=== PATIENT | male | born 1960 | race American Indian/Alaskan Native ===

== ENCOUNTER 2016-07-25 22:22 | Emergency (ER) | payer MEDICARE ==
--- NOTE | 2016-07-26 00:24 | Emergency Department Report ---
ED Abdominal Pain HPI - General Chief Complaint: Abdominal Pain Stated Complaint: ABD PAIN/VOMITING Time Seen by Provider: 07/26/16 00:18 Source: patient Mode of arrival: Wheelchair Limitations: Physical Limitation - History of Present Illness Initial Comments: This is a 55-year-old gentleman who complains of diffuse abdominal pains. He states they've been going on and off for the past couple of days. He denies any dysuria. He does have a history of diabetes. He takes insulin for this. He states his sugars are usually around 200. He denies any fevers. No diarrhea or vomiting. He does occasionally have nausea however. Quality: aching Consistency: intermittent Improves With: nothing Worsens With: eating Associated Symptoms: nausea. denies: chills - Related Data Home Medications Medication Instructions Recorded Confirmed Last Taken Ascorbic Acid 500 mg PO DAILY 01/07/14 01/07/14 Unknown Docusate Sodium [Colace CAP] 100 mg PO BID 01/07/14 01/07/14 Unknown Insulin Lispro [HumaLOG VIAL] 1 - 10 units SQ ACHS PRN 01/07/14 01/07/14 Unknown Multivits,Ca,Minerals/Iron/FA 1 tab PO DAILY 01/07/14 01/07/14 Unknown [Thera M Plus Tablet] Zinc Sulfate 220 mg PO DAILY 01/07/14 01/07/14 Unknown Previous Rx's Medication Instructions Recorded Last Taken Type ALPRAZolam [Xanax TAB] 0.25 mg PO BID PRN #7 tablet 01/16/14 Unknown Rx Atorvastatin (Nf) [Lipitor] 10 mg PO HS #30 tablet 01/16/14 Unknown Rx Clopidogrel Bisulfate [Plavix] 75 mg PO DAILY #30 tablet 01/16/14 Unknown Rx Famotidine [Pepcid] 20 mg PO BID #60 tablet 01/16/14 Unknown Rx Insulin Glargine,Hum.rec.anlog 17 units SQ HS 30 Days 01/16/14 Unknown Rx [Lantus] Metoprolol [Lopressor TAB] 12.5 mg PO Q12H #30 tablet 01/16/14 Unknown Rx Nicotine [Habitrol] 21 mg TD DAILY #7 patch 01/16/14 Unknown Rx PARoxetine [Paxil] 20 mg PO DAILY #30 tablet 01/16/14 Unknown Rx amLODIPine [Norvasc] 5 mg PO DAILY #30 tablet 01/16/14 Unknown Rx glyBURIDE [Diabeta] 5 mg PO BID #60 tablet 01/16/14 Unknown Rx oxyCODONE /ACETAMINOPHEN [Percocet 1 - 2 tab PO Q4H PRN #14 tablet 01/16/14 Unknown Rx 5/325 mg] Allergies Allergy/AdvReac Type Severity Reaction Status Date / Time No Known Allergies Allergy Verified 12/21/13 09:06 ED Review of Systems ROS: Stated complaint: ABD PAIN/VOMITING Other details as noted in HPI Comment: All other systems reviewed and negative Constitutional: denies: chills, fever Eyes: denies: eye pain, eye discharge, vision change ENT: denies: ear pain, throat pain Respiratory: denies: cough, shortness of breath, wheezing Cardiovascular: denies: chest pain, palpitations Endocrine: no symptoms reported Gastrointestinal: abdominal pain, nausea. denies: diarrhea Genitourinary: denies: urgency, dysuria Musculoskeletal: denies: back pain, joint swelling, arthralgia Skin: denies: rash, lesions Neurological: denies: headache, weakness, paresthesias Psychiatric: denies: anxiety, depression Hematological/Lymphatic: denies: easy bleeding, easy bruising ED Past Medical Hx - Past Medical History Hx Hypertension: Yes (amlodipine, metoprolol) Hx Heart Attack/AMI: No Hx Congestive Heart Failure: No Hx Diabetes: Yes Hx Asthma: No Hx COPD: No - Surgical History Past Surgical History?: Yes Additional Surgical History: bilateral amputations - Social History Smoking Status: Never Smoker Substance Use Type: None - Medications Home Medications: Home Medications Medication Instructions Recorded Confirmed Last Taken Type Ascorbic Acid 500 mg PO DAILY 01/07/14 01/07/14 Unknown History Docusate Sodium [Colace CAP] 100 mg PO BID 01/07/14 01/07/14 Unknown History Insulin Lispro [HumaLOG VIAL] 1 - 10 units SQ ACHS PRN 01/07/14 01/07/14 Unknown History Multivits,Ca,Minerals/Iron/FA 1 tab PO DAILY 01/07/14 01/07/14 Unknown History [Thera M Plus Tablet] Zinc Sulfate 220 mg PO DAILY 01/07/14 01/07/14 Unknown History ALPRAZolam [Xanax TAB] 0.25 mg PO BID PRN #7 tablet 01/16/14 Unknown Rx Atorvastatin (Nf) [Lipitor] 10 mg PO HS #30 tablet 01/16/14 Unknown Rx Clopidogrel Bisulfate [Plavix] 75 mg PO DAILY #30 tablet 01/16/14 Unknown Rx Famotidine [Pepcid] 20 mg PO BID #60 tablet 01/16/14 Unknown Rx Insulin Glargine,Hum.rec.anlog 17 units SQ HS 30 Days 01/16/14 Unknown Rx [Lantus] Metoprolol [Lopressor TAB] 12.5 mg PO Q12H #30 tablet 01/16/14 Unknown Rx Nicotine [Habitrol] 21 mg TD DAILY #7 patch 01/16/14 Unknown Rx PARoxetine [Paxil] 20 mg PO DAILY #30 tablet 01/16/14 Unknown Rx amLODIPine [Norvasc] 5 mg PO DAILY #30 tablet 01/16/14 Unknown Rx glyBURIDE [Diabeta] 5 mg PO BID #60 tablet 01/16/14 Unknown Rx oxyCODONE /ACETAMINOPHEN [Percocet 1 - 2 tab PO Q4H PRN #14 tablet 01/16/14 Unknown Rx 5/325 mg] ED Physical Exam - General Limitations: Physical Limitation General appearance: alert, in no apparent distress - Head Head exam: Present: atraumatic, normocephalic - Eye Eye exam: Present: normal appearance, EOMI. Absent: scleral icterus - ENT ENT exam: Present: normal exam, normal orophraynx, mucous membranes moist - Neck Neck exam: Present: normal inspection, full ROM. Absent: meningismus - Respiratory Respiratory exam: Present: normal lung sounds bilaterally. Absent: respiratory distress, wheezes, rales - Cardiovascular Cardiovascular Exam: Present: regular rate, normal rhythm. Absent: systolic murmur, diastolic murmur, rubs, gallop - GI/Abdominal GI/Abdominal exam: Present: soft, normal bowel sounds. Absent: distended, tenderness, guarding, organomegaly, pulsatile mass - Rectal Rectal exam: Present: deferred - Extremities Exam Extremities exam: Present: normal inspection, other (right BKA with superficial abrasion with secondary healing noted on the distal portion of the leg. No surrounding erythema noted no purulent drainage noted.). Absent: pedal edema - Back Exam Back exam: Present: normal inspection. Absent: tenderness, CVA tenderness (R), CVA tenderness (L) - Neurological Exam Neurological exam: Present: alert, oriented X3 - Psychiatric Psychiatric exam: Present: normal affect, normal mood - Skin Skin exam: Present: warm, dry, intact, normal color. Absent: rash ED Course Vital Signs 07/25/16 07/26/16 23:39 01:10 Temperature 98.9 F Pulse Rate 121 H Respiratory 16 14 Rate Blood Pressure 152/102 O2 Sat by Pulse 97 97 Oximetry - Reevaluation(s) Reevaluation #1: 07/26/16 00:19 ECG at 2352 with sinus tachycardia at 122 bpm with normal SD and QRS. Right axis is noted with some right atrial and ventricular enlargement. Doesn't appear to have a pulmonary pattern. Nonspecific ST-T wave changes are noted. Reevaluation #2: 07/26/16 05:16 I was very surprised to see the patient had no tenderness whatsoever to palpation on his abdominal examination. He does continue to endorse some mild abdominal pains. He appears quite comfortable in general. Cipro such as colonic ischemia come to mind is a possibility. I am more suspicious however given his hyperglycemia and history of vascular disease that the type of gastroparesis or more of a neurologic come opponent to his intra-abdominal discomforts. I do not suspect this is a surgical etiology at this time. I did focus on his sugars. He was given total of 2 L normal saline as well as several rounds of insulin regular to bring the sugars down. He is still in the 300s. Given a final dose of insulin here prior to her discharge I suspect will bring him down below 300. I did encourage the patient to continue to be aggressive at home with his sugars to try to get his sugars down below 200. He has his daughter with him as well. I did discuss this well his blood tests and my suspicion of etiology of his discomforts. Frankly he seems to have resolved as regards his pain over the last several hours. I feel he is safe for home and continue management through his primary doctor. ED Medical Decision Making - Lab Data Result diagrams: 07/26/16 00:03 07/26/16 00:03 Critical care attestation.: If time is entered above; I have spent that time in minutes in the direct care of this critically ill patient, excluding procedure time. ED Disposition Clinical Impression: Hyperglycemia, Gastroparesis due to DM Abdominal pain Qualifiers: Abdominal location: generalized Qualified Code(s): R10.84 - Generalized abdominal pain Disposition: DISCHARGED TO HOME OR SELFCARE Is pt being admited?: No Does the pt Need Aspirin: No Condition: Stable Additional Instructions: Take your medications as prescribed. Check her sugars regularly. Be aggressive with her sliding scale to keep her sugars in the appropriate range. Take small meals more frequently through the day. Referrals: ALFONSO VILLANUEVA MD [Primary Care Provider] - 3-5 Days Time of Disposition: 04:45
[2016-07-26] MEDS ORDERED: NACL 0.9% 1000 ML 1,000 ML IV ONE ×2 (00:32→03:56)
[2016-07-26 00:33] LABS: Basophils % (Auto) 0.5 % (0.0-1.8); Eosinophils % (Auto) 0.1 % (0.0-4.3); Hematocrit 42.2 % (35.5-45.6); Hemoglobin 14.1 gm/dl (11.8-15.2); Mean Corpuscular HGB Conc 33 % (32-34); Mean Corpuscular Hemoglobin 27 pg (28-32); Mean Corpuscular Volume 80 fl (84-94); Platelet Count 212 K/mm3 (140-440); Red Blood Count 5.24 M/mm3 (3.65-5.03); Red Cell Distribution Width 14.8 % (13.2-15.2); White Blood Count 18.1 K/mm3 (4.5-11.0)
[2016-07-26 00:39] LABS: Albumin 4.2 g/dL (3.9-5); Albumin/Globulin Ratio 1.4 %; BUN/Creatinine Ratio 32.27; Bilirubin,Total 0.5 mg/dL (0.1-1.2); Calcium 9.6 mg/dL (8.4-10.2); Chloride 85.6 mmol/L (98-107); Potassium 4.4 mmol/L (3.6-5.0); Total Protein 7.1 g/dL (6.3-8.2)
[2016-07-26 01:46] LABS: Bacteria,Urine 1+ /HPF (Negative); Bilirubin,Urine NEG (Negative); Blood,Urine NEG (Negative); Ketones,Urine 20 mg/dL (Negative); Leukocyte Esterase,Urine NEG (Negative); Nitrite,Urine NEG (Negative); Protein,Urine <15 mg/dL mg/dL (Negative); Urobilinogen,Urine < 2.0 mg/dL (<2.0)
[2016-07-26 05:18] VITALS: BP 152/98
== END 2016-07-26 05:30 | disposition home or self-care (01) ==
LOC: ED 22:22
DX: E11.65 Type 2 diabetes mellitus with hyperglycemia (principal); E11.43 Type 2 diabetes mellitus with diabetic autonomic (poly)neuropathy; K31.84 Gastroparesis; I10 Essential (primary) hypertension; Z79.4 Long term (current) use of insulin
CPT/HCPCS: 36415; 80048; 80053; 81001; 82962; 83690; 85025; 93005; 93010; 96360; 96361; 96372; 99283; J7030; J1815

== ENCOUNTER 2020-02-18 07:48 | Emergency (ER) | payer MEDICARE ==
[2020-02-18] MEDS ORDERED: ONDANSETRON 4 MG/2 ML INJ IV ONE (09:03)
[2020-02-18] MEDS ORDERED: MORPHINE 4 MG/1 ML INJ IV ONE (09:03)
[2020-02-18] MEDS ORDERED: SODIUM CHLORIDE 0.9% 1000 ML 1,000 ML IV ONE ×2 (09:03→10:00)
[2020-02-18] MEDS ORDERED: FAMOTIDINE 20 MG/2 ML INJ IV ONE (09:03)
[2020-02-18 09:23] LABS: Basophils # (Auto) 0.1 K/mm3 (0.0-0.1); Basophils % (Auto) 0.4 % (0.0-1.8); Eosinophils # (Auto) 0.1 K/mm3 (0.0-0.4); Eosinophils % (Auto) 0.5 % (0.0-4.3); Hematocrit 36.4 % (35.5-45.6); Hemoglobin 12.3 gm/dl (11.8-15.2); Lymphocytes # (Auto) 1.9 K/mm3 (1.2-5.4); Lymphocytes % (Auto) 11.4 % (13.4-35.0); Mean Corpuscular HGB Conc 34 % (32-34); Mean Corpuscular Volume 83 fl (84-94); Monocytes # (Auto) 1.2 K/mm3 (0.0-0.8); Monocytes % (Auto) 6.9 % (0.0-7.3); Platelet Count 278 K/mm3 (140-440); Red Blood Count 4.36 M/mm3 (3.65-5.03); Red Cell Distribution Width 13.9 % (13.2-15.2)
[2020-02-18 09:42] LABS: Albumin 3.3 g/dL (3.9-5); Calcium 8.8 mg/dL (8.4-10.2)
[2020-02-18] MEDS ORDERED: INSULIN REGULAR, HUMAN 100 UNIT/ML 3ML VIAL IV ONE (09:57)
[2020-02-18] MEDS ORDERED: SODIUM CHLORIDE 0.9% 1000 ML IV SOLN IV ONE (10:02)
--- NOTE | 2020-02-18 10:06 | Emergency Department Report ---
ED Abdominal Pain HPI - General Chief Complaint: Abdominal Pain Stated Complaint: NAUSEA Time Seen by Provider: 02/18/20 08:49 Source: patient Mode of arrival: Ambulatory Limitations: Physical Limitation - History of Present Illness Initial Comments: This is a 59-year-old male nontoxic, well nourished in appearance, no acute signs of distress presents to the ED with c/o of nausea and vomiting and abdominal pain several days. Patient describes vomiting as food content and yellow gastric acid. Patient describes abdominal pain as cramping and aching with level of 8/10 diffuse. Patient denies chest pain, short of breath, fever, hemoptysis, blood in stool, chills, headache, stiff neck, numbness or tingling. Patient denies any diarrhea or constipation. Denies any blood in stool. Patient denies any recent travels. Patient denies any drug allergies. Past medical history includes kidney insufficiency, bilateral BKA, and diabetes which he stated he is currently complying with medication. MD Complaint: abdominal pain -: days(s) Location: diffuse Radiation: none Migration to: no migration Severity scale (0 -10): 8 Quality: cramping, aching Consistency: constant Improves With: nothing Worsens With: nothing Associated Symptoms: nausea, vomiting. denies: diarrhea, fever, chills, constipation, dysuria, hematemesis, hematochezia, melena, hematuria, anorexia, syncope - Related Data Home Medications Medication Instructions Recorded Confirmed Last Taken Ascorbic Acid 500 mg PO DAILY 01/07/14 01/07/14 Unknown Docusate Sodium [Colace CAP] 100 mg PO BID 01/07/14 01/07/14 Unknown Insulin Lispro [HumaLOG VIAL] 1 - 10 units SQ ACHS PRN 01/07/14 01/07/14 Unknown Multivit,Calc,Mins/Iron/Folic 1 tab PO DAILY 01/07/14 01/07/14 Unknown [Thera M Plus Tablet] Zinc Sulfate 220 mg PO DAILY 01/07/14 01/07/14 Unknown Previous Rx's Medication Instructions Recorded Last Taken Type ALPRAZolam [Xanax TAB] 0.25 mg PO BID PRN #7 tablet 01/16/14 Unknown Rx Atorvastatin (Nf) [Lipitor] 10 mg PO HS #30 tablet 01/16/14 Unknown Rx Clopidogrel Bisulfate [Plavix] 75 mg PO DAILY #30 tablet 01/16/14 Unknown Rx Famotidine [Pepcid] 20 mg PO BID #60 tablet 01/16/14 Unknown Rx Insulin Glargine,Hum.rec.anlog 17 units SQ HS 30 Days ml 01/16/14 Unknown Rx [Lantus] Metoprolol [Lopressor TAB] 12.5 mg PO Q12H #30 tablet 01/16/14 Unknown Rx Nicotine [Habitrol] 21 mg TD DAILY #7 patch 01/16/14 Unknown Rx PARoxetine [Paxil] 20 mg PO DAILY #30 tablet 01/16/14 Unknown Rx amLODIPine 5 mg PO DAILY #30 tablet 01/16/14 Unknown Rx glyBURIDE [Diabeta] 5 mg PO BID #60 tablet 01/16/14 Unknown Rx oxyCODONE /ACETAMINOPHEN [Percocet 1 - 2 tab PO Q4H PRN #14 tablet 01/16/14 Unknown Rx 5/325 mg] Ondansetron [Zofran Odt] 4 mg PO Q8HR PRN #12 tab.rapdis 02/18/20 Unknown Rx Allergies Allergy/AdvReac Type Severity Reaction Status Date / Time No Known Allergies Allergy Verified 12/21/13 09:06 ED Review of Systems ROS: Stated complaint: NAUSEA Other details as noted in HPI Constitutional: denies: chills, fever Eyes: denies: eye pain, eye discharge, vision change ENT: denies: ear pain, throat pain Respiratory: denies: cough, shortness of breath, wheezing Cardiovascular: denies: chest pain, palpitations Endocrine: no symptoms reported Gastrointestinal: abdominal pain, nausea, vomiting. denies: diarrhea, constipation, hematemesis, melena, hematochezia Genitourinary: denies: urgency, dysuria Musculoskeletal: denies: back pain, joint swelling, arthralgia Skin: denies: rash, lesions Neurological: denies: headache, weakness, paresthesias Psychiatric: denies: anxiety, depression Hematological/Lymphatic: denies: easy bleeding, easy bruising ED Past Medical Hx - Past Medical History Hx Hypertension: Yes (amlodipine, metoprolol) Hx Heart Attack/AMI: No Hx Congestive Heart Failure: No Hx Diabetes: Yes Hx Asthma: No Hx COPD: No - Surgical History Additional Surgical History: bilateral amputations - Social History Smoking Status: Never Smoker - Medications Home Medications: Home Medications Medication Instructions Recorded Confirmed Last Taken Type Ascorbic Acid 500 mg PO DAILY 01/07/14 01/07/14 Unknown History Docusate Sodium [Colace CAP] 100 mg PO BID 01/07/14 01/07/14 Unknown History Insulin Lispro [HumaLOG VIAL] 1 - 10 units SQ ACHS PRN 01/07/14 01/07/14 Unknown History Multivit,Calc,Mins/Iron/Folic 1 tab PO DAILY 01/07/14 01/07/14 Unknown History [Thera M Plus Tablet] Zinc Sulfate 220 mg PO DAILY 01/07/14 01/07/14 Unknown History ALPRAZolam [Xanax TAB] 0.25 mg PO BID PRN #7 tablet 01/16/14 Unknown Rx Atorvastatin (Nf) [Lipitor] 10 mg PO HS #30 tablet 01/16/14 Unknown Rx Clopidogrel Bisulfate [Plavix] 75 mg PO DAILY #30 tablet 01/16/14 Unknown Rx Famotidine [Pepcid] 20 mg PO BID #60 tablet 01/16/14 Unknown Rx Insulin Glargine,Hum.rec.anlog 17 units SQ HS 30 Days ml 01/16/14 Unknown Rx [Lantus] Metoprolol [Lopressor TAB] 12.5 mg PO Q12H #30 tablet 01/16/14 Unknown Rx Nicotine [Habitrol] 21 mg TD DAILY #7 patch 01/16/14 Unknown Rx PARoxetine [Paxil] 20 mg PO DAILY #30 tablet 01/16/14 Unknown Rx amLODIPine 5 mg PO DAILY #30 tablet 01/16/14 Unknown Rx glyBURIDE [Diabeta] 5 mg PO BID #60 tablet 01/16/14 Unknown Rx oxyCODONE /ACETAMINOPHEN [Percocet 1 - 2 tab PO Q4H PRN #14 tablet 01/16/14 Unknown Rx 5/325 mg] Ondansetron [Zofran Odt] 4 mg PO Q8HR PRN #12 tab.rapdis 02/18/20 Unknown Rx ED Physical Exam - General Limitations: Physical Limitation General appearance: alert, in no apparent distress - Head Head exam: Present: atraumatic, normocephalic - Eye Eye exam: Present: normal appearance - Neck Neck exam: Present: normal inspection, full ROM. Absent: tenderness, meningismus, lymphadenopathy - Respiratory Respiratory exam: Present: normal lung sounds bilaterally. Absent: respiratory distress, wheezes, rales, rhonchi, stridor, chest wall tenderness, accessory muscle use, decreased breath sounds, prolonged expiratory - Cardiovascular Cardiovascular Exam: Present: normal rhythm, tachycardia, normal heart sounds. Absent: gallop - GI/Abdominal GI/Abdominal exam: Present: soft, tenderness (diffuse), normal bowel sounds. Absent: distended, guarding, rebound, rigid, diminished bowel sounds - Extremities Exam Extremities exam: Present: full ROM - Back Exam Back exam: Present: normal inspection, full ROM. Absent: tenderness, CVA tenderness (R), CVA tenderness (L), muscle spasm, paraspinal tenderness, vertebral tenderness, rash noted - Neurological Exam Neurological exam: Present: alert, oriented X3 - Psychiatric Psychiatric exam: Present: normal affect, normal mood - Skin Skin exam: Present: warm, dry, intact, normal color. Absent: rash ED Course Vital Signs 02/18/20 02/18/20 02/18/20 07:55 10:07 13:17 Temperature 97.7 F Pulse Rate 110 H 94 H Respiratory 18 20 18 Rate Blood Pressure 102/62 Blood Pressure 108/70 [Right] O2 Sat by Pulse 97 98 Oximetry - Reevaluation(s) Reevaluation #1: 02/18/20 10:06 Patient is speaking in full sentences with no signs of distress noted. - Consultations Consultation #1: 02/18/20 10:06 Patient has been consulted with Dr. Stephen about patient history, physical exam, and labs and agrees to the ED plan of care. Consultation #2: 02/18/20 13:57 Patient has been consulted with Dr. Stephen about patient history, physical exam, and labs/CT results and agrees for discharge follow-up instructions. ED Medical Decision Making - Lab Data Result diagrams: 02/18/20 09:09 02/18/20 09:09 Lab Results 02/18/20 02/18/20 02/18/20 Range/Units 09:09 09:09 09:09 WBC 16.7 H (4.5-11.0) K/mm3 RBC 4.36 (3.65-5.03) M/mm3 Hgb 12.3 (11.8-15.2) gm/dl Hct 36.4 (35.5-45.6) % MCV 83 L (84-94) fl MCH 28 (28-32) pg MCHC 34 (32-34) % RDW 13.9 (13.2-15.2) % Plt Count 278 (140-440) K/mm3 Lymph % (Auto) 11.4 L (13.4-35.0) % [place] % (Auto) 6.9 (0.0-7.3) % Eos % (Auto) 0.5 (0.0-4.3) % Baso % (Auto) 0.4 (0.0-1.8) % Lymph # (Auto) 1.9 (1.2-5.4) K/mm3 [place] # (Auto) 1.2 H (0.0-0.8) K/mm3 Eos # (Auto) 0.1 (0.0-0.4) K/mm3 Baso # (Auto) 0.1 (0.0-0.1) K/mm3 Seg Neutrophils % 80.8 H (40.0-70.0) % Seg Neutrophils # 13.5 H (1.8-7.7) K/mm3 VBG pH 7.384 (7.320-7.420) Sodium 137 (137-145) mmol/L Potassium 3.6 (3.6-5.0) mmol/L Chloride 97.8 L (98-107) mmol/L Carbon Dioxide 29 (22-30) mmol/L Anion Gap 14 mmol/L BUN 78 H (9-20) mg/dL Creatinine 2.5 H (0.8-1.3) mg/dL Estimated GFR 32 ml/min BUN/Creatinine Ratio 31 % Glucose 355 H (75-100) mg/dL POC Glucose (70-105) mg/dL Lactic Acid (0.7-2.0) mmol/L Calcium 8.8 (8.4-10.2) mg/dL Total Bilirubin 0.40 (0.1-1.2) mg/dL AST 10 (5-40) units/L ALT 9 (7-56) units/L Alkaline Phosphatase 110 (35-129) units/L Total Protein 6.2 L (6.3-8.2) g/dL Albumin 3.3 L (3.9-5) g/dL Albumin/Globulin Ratio 1.1 % Lipase 24 (13-60) units/L Urine Color (Yellow) Urine Turbidity (Clear) Urine pH (5.0-7.0) Ur Specific [place] (1.003-1.030) Urine Protein (Negative) mg/dL Urine Glucose (UA) (Negative) mg/dL Urine Ketones (Negative) mg/dL Urine Blood (Negative) Urine Nitrite (Negative) Urine Bilirubin (Negative) Urine Urobilinogen (<2.0) mg/dL Ur Leukocyte Esterase (Negative) Urine WBC (Auto) (0.0-6.0) /HPF Urine RBC (Auto) (0.0-6.0) /HPF U Epithel Cells (Auto) (0-13.0) /HPF Hyaline Casts /LPF 02/18/20 02/18/20 02/18/20 Range/Units 10:51 12:21 13:17 WBC (4.5-11.0) K/mm3 RBC (3.65-5.03) M/mm3 Hgb (11.8-15.2) gm/dl Hct (35.5-45.6) % MCV (84-94) fl MCH (28-32) pg MCHC (32-34) % RDW (13.2-15.2) % Plt Count (140-440) K/mm3 Lymph % (Auto) (13.4-35.0) % [place] % (Auto) (0.0-7.3) % Eos % (Auto) (0.0-4.3) % Baso % (Auto) (0.0-1.8) % Lymph # (Auto) (1.2-5.4) K/mm3 [place] # (Auto) (0.0-0.8) K/mm3 Eos # (Auto) (0.0-0.4) K/mm3 Baso # (Auto) (0.0-0.1) K/mm3 Seg Neutrophils % (40.0-70.0) % Seg Neutrophils # (1.8-7.7) K/mm3 VBG pH (7.320-7.420) Sodium (137-145) mmol/L Potassium (3.6-5.0) mmol/L Chloride (98-107) mmol/L Carbon Dioxide (22-30) mmol/L Anion Gap mmol/L BUN (9-20) mg/dL Creatinine (0.8-1.3) mg/dL Estimated GFR ml/min BUN/Creatinine Ratio % Glucose (75-100) mg/dL POC Glucose 336 H (70-105) mg/dL Lactic Acid 1.60 (0.7-2.0) mmol/L Calcium (8.4-10.2) mg/dL Total Bilirubin (0.1-1.2) mg/dL AST (5-40) units/L ALT (7-56) units/L Alkaline Phosphatase (35-129) units/L Total Protein (6.3-8.2) g/dL Albumin (3.9-5) g/dL Albumin/Globulin Ratio % Lipase (13-60) units/L Urine Color Yellow (Yellow) Urine Turbidity Clear (Clear) Urine pH 5.0 (5.0-7.0) Ur Specific [place] 1.016 (1.003-1.030) Urine Protein 100 mg/dl (Negative) mg/dL Urine Glucose (UA) >=500 (Negative) mg/dL Urine Ketones Neg (Negative) mg/dL Urine Blood Neg (Negative) Urine Nitrite Neg (Negative) Urine Bilirubin Neg (Negative) Urine Urobilinogen < 2.0 (<2.0) mg/dL Ur Leukocyte Esterase Neg (Negative) Urine WBC (Auto) 1.0 (0.0-6.0) /HPF Urine RBC (Auto) 3.0 (0.0-6.0) /HPF U Epithel Cells (Auto) < 1.0 (0-13.0) /HPF Hyaline Casts 1 /LPF - Radiology Data Referring Physician: ELI MILLER Patient Name: WILFRID DESIR Date of : 1960 Sex: Male Report Date: 2020-02-18 Report Status: Finalized [facility] [address] [place] [address] Cat Scan Report Signed Patient: WILFRID DESIR MR#: [id number] : 1960 Acct:[id number] Age/Sex: 59 / M ADM Date: 02/18/20 Loc: ED Attending Dr: Ordering Physician: ELI MILLER NP Date of Service: 02/18/20 Procedure(s): CT abdomen pelvis wo con Accession Number(s): [id number] cc: ELI MILLER NP CT abdomen pelvis wo con INDICATION: abd pain w/ n/v-PO CON ONLY. COMPARISON: 02/15/2020 CT abdomen and pelvis TECHNIQUE: Abdominal and pelvic CT exam performed. All CT scans at this location are performed using CT dose reduction for ALARA by means of automated exposure control. FINDINGS: CT ABDOMEN and PELVIS: Lung Bases: No significant abnormality. Liver: No significant abn ormality. Biliary: No significant abnormality. Spleen: No significant abnormality. Pancreas: No significant abnormality. Adrenals: No significant abnormality. Kidneys: No significant abnormality. Lymphatics: No lymphadenopathy. Vasculature: No significant abnormality. Bowel: No significant abnormality. Normal appendix. Pelvis: No significant abnormality. Osseous Structures: No aggressive osseous lesion. Additional Findings: None IMPRESSION: 1. No significant abnormality of the abdomen or pelvis. Signer Name: Benigno Machado MD Signed: 02/18/2020 11:43 AM Workstation Name: [id number] Transcribed By: CS Dictated By: Benigno Machado MD Electronically Authenticated By: Benigno Machado MD Signed Date/Time: 02/18/20 1143 DD/ 1141 TD/TT: Referring Physician: ELI MILLER Patient Name: WILFRID DESIR Date of : 1960 Sex: Male Report Date: 2020-02-18 Report Status: Finalized [address] [address] XRay Report Signed Patient: WILFRID DESIR MR#: [id number] : 1960 Acct:[id number] Age/Sex: 59 / M ADM Date: 02/18/20 Loc: ED Attending Dr: Ordering Physician: ELI MILLER NP Date of Service: 02/18/20 Procedure(s): XR chest 1V ap Accession Number(s): [id number] cc: ELI MILLER NP Fluoro Time In Minutes: CHEST 1 VIEW 02/18/2020 10:20 AM INDICATION / CLINICAL INFORMATION: sepsis. COMPARISON: 04/05/2019 FINDINGS: SUPPORT DEVICES: None. HEART / MEDIASTINUM: No significant abnormality. LUNGS / PLEURA: No significant pulmonary or pleural abnormality. No pneumothorax. ADDITIONAL FINDINGS: No significant additional findings. IMPRESSION: 1. No acute findings. Signer Name: Jean Wei MD Signed: 02/18/2020 10:28 AM Workstation Name: [id number] Transcribed By: TANESHA Dictated By: Jean Wei MD Electronically Authenticated By: Jean Wei MD Signed Date/Time: 02/18/201027 DD/ 27 TD/TT: - Medical Decision Making This is a 59-year-old male that presents with abdominal pain with n/v. Patient is stable and was examined by me. Negative signs of symptoms of appendicitis. Labs obtained. UA obtained. CT of abdomen obtained and dictated by the radiologist. Patient is notified of the report with no questions noted by the patient. Vital signs are stable prior to discharge. Patient received medical treatment in the ED which patient stated symptoms has resovled and subsided. Was instructed note to operate any machinery due to possible drowsiness and stated someone will drive the patient home. A by mouth challenge has been obt ained and patient tolerated well with no nausea vomiting. Patient was also instructed to Follow-up with a primary care doctor in 3-5 days or if symptoms worsen and continue return to emergency room as soon as possible. At time of discharge, the patient does not seem toxic or ill in appearance. No acute signs of distress noted. Patient agrees to discharge treatment plan of care. No further questions noted by the patient. Critical care attestation.: If time is entered above; I have spent that time in minutes in the direct care of this critically ill patient, excluding procedure time. ED Disposition Clinical Impression: Abdominal pain Qualifiers: Abdominal location: generalized Qualified Code(s): R10.84 - Generalized abdominal pain Nausea & vomiting Qualifiers: Vomiting type: unspecified Vomiting Intractability: non-intractable Qualified Code(s): R11.2 - Nausea with vomiting, unspecified Disposition: DC-01 TO HOME OR SELFCARE Is pt being admited?: No Does the pt Need Aspirin: No Condition: Stable Instructions: Nausea and Vomiting, Adult, Abdominal Pain, Adult, [id number] Additional Instructions: Follow-up with a primary care and health care consultant doctor in 3-5 days or if symptoms worsen and continue return to emergency room as soon as possible. Prescriptions: Ondansetron [Zofran Odt] 4 mg PO Q8HR PRN #12 tab.rapdis PRN Reason: Nausea Referrals: PRIMARY CARE, [Primary Care Provider] - 3-5 Days KALLIE HERNANDEZ MD [Staff Physician] - 3-5 Days [facility] [Provider Group] - 3-5 Days Time of Disposition: 13:58
--- NOTE | 2020-02-18 10:33 | XRay Report ---
CHEST 1 VIEW 02/18/2020 10:20 AM INDICATION / CLINICAL INFORMATION: sepsis. COMPARISON: 04/05/2019 FINDINGS: SUPPORT DEVICES: None. HEART / MEDIASTINUM: No significant abnormality. LUNGS / PLEURA: No significant pulmonary or pleural abnormality. No pneumothorax. ADDITIONAL FINDINGS: No significant additional findings. IMPRESSION: 1. No acute findings. Signer Name: Jean Wei MD Signed: 02/18/2020 10:28 AM Workstation Name: [id number]
--- NOTE | 2020-02-18 11:48 | Cat Scan Report ---
CT abdomen pelvis wo con INDICATION: abd pain w/ n/v-PO CON ONLY. COMPARISON: 02/15/2020 CT abdomen and pelvis TECHNIQUE: Abdominal and pelvic CT exam performed. All CT scans at this location are performed using CT dose reduction for ALARA by means of automated exposure control. FINDINGS: CT ABDOMEN and PELVIS: Lung Bases: No significant abnormality. Liver: No significant abnormality. Biliary: No significant abnormality. Spleen: No significant abnormality. Pancreas: No significant abnormality. Adrenals: No significant abnormality. Kidneys: No significant abnormality. Lymphatics: No lymphadenopathy. Vasculature: No significant abnormality. Bowel: No significant abnormality. Normal appendix. Pelvis: No significant abnormality. Osseous Structures: No aggressive osseous lesion. Additional Findings: None IMPRESSION: 1. No significant abnormality of the abdomen or pelvis. Signer Name: Benigno Machado MD Signed: 02/18/2020 11:43 AM Workstation Name: [id number]
[2020-02-18 13:34] LABS: Bilirubin,Urine NEG (Negative); Blood,Urine NEG (Negative); Color,Urine Yellow (Yellow); Hyaline Casts,Urine 1 /LPF; Urobilinogen,Urine < 2.0 mg/dL (<2.0)
[2020-02-18 15:13] VITALS: BP 110/71
== END 2020-02-18 15:12 | disposition home or self-care (01) ==
LOC: ED 07:48
DX: R10.84 Generalized abdominal pain (principal); R11.2 Nausea with vomiting, unspecified; I10 Essential (primary) hypertension; E11.9 Type 2 diabetes mellitus without complications; Z79.4 Long term (current) use of insulin; Z79.899 Other long term (current) drug therapy
CPT/HCPCS: 36415; 71045; 74176; 80053; 81001; 82140; 82805; 82962; 83690; 85025; 87040; 96361; 96374; 96375; 99285; J2270; J2405; J7030

== ENCOUNTER 2021-06-21 18:22 | Emergency (ER) | payer MEDICARE ==
--- NOTE | 2021-06-21 19:00 | Emergency Department Report ---
ED Psych HPI - General Chief Complaint: Psych Stated Complaint: psych Time Seen by Provider: 06/21/21 18:46 Source: patient, EMS Mode of arrival: Stretcher - History of Present Illness Initial Comments: Patient is 60 years old male with history of hypertension diabetes. Patient brought to the emergency room via EMS from home for mental health evaluation. Patient stated that he started to hearing voices that are not there and is bothering him and he want to be checked. Patient denied any visual hallucination. He also denied any suicidal homicidal ideation. Patient stated that this happened to him before but he went away. Patient denied any specific psychiatric diagnosis before. MD Complaint: altered mental status -: days(s) Associated Psychiatric Symptoms: auditory hallucinations Quality: intermittent Associated Symptoms: denies other symptoms. denies: confusion, headache, shortness of breath Treatments Prior to Arrival: none - Related Data Home Medications Medication Instructions Recorded Confirmed Last Taken Ascorbic Acid 500 mg PO DAILY 01/07/14 01/07/14 Unknown Docusate Sodium [Colace CAP] 100 mg PO BID 01/07/14 01/07/14 Unknown Insulin Lispro [HumaLOG VIAL] 1 - 10 units SQ ACHS PRN 01/07/14 01/07/14 Unknown Multivit,Calc,Mins/Iron/Folic 1 tab PO DAILY 01/07/14 01/07/14 Unknown [Thera M Plus Tablet] Zinc Sulfate 220 mg PO DAILY 01/07/14 01/07/14 Unknown Acetaminophen [Acetaminophen TAB] 500 mg PO Q8H PRN 01/06/21 01/06/21 Unknown Calcium Carbonate [Calcium 650 mg PO BID 01/06/21 01/06/21 Unknown Carbonate 650MG TAB] Chlorhexidine Mouthwash [Peridex] 15 ml MM TID 01/06/21 01/06/21 Unknown Ergocalciferol [Vitamin D2] 1 cap PO QWEEK 01/06/21 01/06/21 Unknown Gabapentin 1 cap PO QAM 01/06/21 01/06/21 Unknown Gabapentin 600 mg PO QHS 01/06/21 01/06/21 Unknown Hydralazine HCl 50 mg PO BID 01/06/21 01/06/21 Unknown Insulin Glargine,Hum.rec.anlog 16 unit SQ HS 01/06/21 01/06/21 Unknown [Basaglar Kwikpen U-100] Losartan [Cozaar] 100 mg PO QDAY 01/06/21 01/06/21 Unknown Ondansetron [Zofran ODT TAB] 8 mg PO Q68H PRN 01/06/21 01/06/21 Unknown glipiZIDE [Glucotrol] 10 mg PO QDAY 01/06/21 01/06/21 Unknown risperiDONE [RisperDAL] 0.5 mg PO HS 01/06/21 01/06/21 Unknown Previous Rx's Medication Instructions Recorded Last Taken Type ALPRAZolam [Xanax TAB] 0.25 mg PO BID PRN #7 tablet 01/16/14 Unknown Rx Atorvastatin (Nf) [Lipitor] 10 mg PO HS #30 tablet 01/16/14 Unknown Rx Clopidogrel Bisulfate [Plavix] 75 mg PO DAILY #30 tablet 01/16/14 Unknown Rx Famotidine [Pepcid] 20 mg PO BID #60 tablet 01/16/14 Unknown Rx Insulin Glargine,Hum.rec.anlog 17 units SQ HS 30 Days ml 01/16/14 Unknown Rx [Lantus VIAL] Metoprolol [Lopressor TAB] 12.5 mg PO Q12H #30 tablet 01/16/14 Unknown Rx Nicotine [Habitrol] 21 mg TD DAILY #7 patch 01/16/14 Unknown Rx PARoxetine [Paxil] 20 mg PO DAILY #30 tablet 01/16/14 Unknown Rx amLODIPine 5 mg PO DAILY #30 tablet 01/16/14 Unknown Rx glyBURIDE [Diabeta] 5 mg PO BID #60 tablet 01/16/14 Unknown Rx oxyCODONE /ACETAMINOPHEN [Percocet 1 - 2 tab PO Q4H PRN #14 tablet 01/16/14 Unknown Rx 5/325 mg] AtorvaSTATin [Lipitor] 40 mg PO QHS #30 tablet 08/18/17 03/20/18 Rx Pantoprazole [Protonix TAB] 40 mg PO BID #60 tablet 04/08/19 Unknown Rx Ondansetron [Zofran Odt] 4 mg PO Q8HR PRN #12 tab.rapdis 02/18/20 Unknown Rx Amlodipine Besylate [Norvasc] 5 mg PO DAILY #30 06/22/21 Unknown Rx Metoprolol Xl [Metoprolol 25 mg PO QDAY #30 tablet 06/22/21 Unknown Rx SUCCINATE ER TAB] cephALEXin [Keflex] 500 mg PO Q12HR #10 cap 06/22/21 Unknown Rx Allergies Allergy/AdvReac Type Severity Reaction Status Date / Time No Known Allergies Allergy Verified 06/14/21 07:08 ED Review of Systems ROS: Stated complaint: psych Other details as noted in HPI Comment: All other systems reviewed and negative Constitutional: denies: chills, fever Respiratory: denies: cough, shortness of breath, SOB with exertion, SOB at rest Cardiovascular: denies: chest pain Gastrointestinal: denies: abdominal pain, nausea, vomiting Musculoskeletal: denies: back pain Neurological: denies: headache, weakness ED Past Medical Hx - Past Medical History Hx Hypertension: Yes Hx Heart Attack/AMI: No Hx Congestive Heart Failure: No Hx Diabetes: Yes Hx Renal Disease: Yes (CKD) Hx Seizures: No Hx Asthma: No Hx COPD: Yes Additional medical history: high cholesterol - Surgical History Additional Surgical History: bilat bka - Social History Substance Use Type: None, Marijuana - Medications Home Medications: Home Medications Medication Instructions Recorded Confirmed Last Taken Type Ascorbic Acid 500 mg PO DAILY 01/07/14 01/07/14 Unknown History Docusate Sodium [Colace CAP] 100 mg PO BID 01/07/14 01/07/14 Unknown History Insulin Lispro [HumaLOG VIAL] 1 - 10 units SQ ACHS PRN 01/07/14 01/07/14 Unknown History Multivit,Calc,Mins/Iron/Folic 1 tab PO DAILY 01/07/14 01/07/14 Unknown History [Thera M Plus Tablet] Zinc Sulfate 220 mg PO DAILY 01/07/14 01/07/14 Unknown History ALPRAZolam [Xanax TAB] 0.25 mg PO BID PRN #7 tablet 01/16/14 Unknown Rx Atorvastatin (Nf) [Lipitor] 10 mg PO HS #30 tablet 01/16/14 Unknown Rx Clopidogrel Bisulfate [Plavix] 75 mg PO DAILY #30 tablet 01/16/14 Unknown Rx Famotidine [Pepcid] 20 mg PO BID #60 tablet 01/16/14 Unknown Rx Insulin Glargine,Hum.rec.anlog 17 units SQ HS 30 Days ml 01/16/14 Unknown Rx [Lantus VIAL] Metoprolol [Lopressor TAB] 12.5 mg PO Q12H #30 tablet 01/16/14 Unknown Rx Nicotine [Habitrol] 21 mg TD DAILY #7 patch 01/16/14 Unknown Rx PARoxetine [Paxil] 20 mg PO DAILY #30 tablet 01/16/14 Unknown Rx amLODIPine 5 mg PO DAILY #30 tablet 01/16/14 Unknown Rx glyBURIDE [Diabeta] 5 mg PO BID #60 tablet 01/16/14 Unknown Rx oxyCODONE /ACETAMINOPHEN [Percocet 1 - 2 tab PO Q4H PRN #14 tablet 01/16/14 Unknown Rx 5/325 mg] AtorvaSTATin [Lipitor] 40 mg PO QHS #30 tablet 08/18/17 01/06/21 03/20/18 Rx Pantoprazole [Protonix TAB] 40 mg PO BID #60 tablet 04/08/19 01/06/21 Unknown Rx Ondansetron [Zofran Odt] 4 mg PO Q8HR PRN #12 tab.rapdis 02/18/20 Unknown Rx Acetaminophen [Acetaminophen TAB] 500 mg PO Q8H PRN 01/06/21 01/06/21 Unknown History Calcium Carbonate [Calcium 650 mg PO BID 01/06/21 01/06/21 Unknown History Carbonate 650MG TAB] Chlorhexidine Mouthwash [Peridex] 15 ml MM TID 01/06/21 01/06/21 Unknown History Ergocalciferol [Vitamin D2] 1 cap PO QWEEK 01/06/21 01/06/21 Unknown History Gabapentin 1 cap PO QAM 01/06/21 01/06/21 Unknown History Gabapentin 600 mg PO QHS 01/06/21 01/06/21 Unknown History Hydralazine HCl 50 mg PO BID 01/06/21 01/06/21 Unknown History Insulin Glargine,Hum.rec.anlog 16 unit SQ HS 01/06/21 01/06/21 Unknown History [Basaglar Kwikpen U-100] Losartan [Cozaar] 100 mg PO QDAY 01/06/21 01/06/21 Unknown History Ondansetron [Zofran ODT TAB] 8 mg PO Q68H PRN 01/06/21 01/06/21 Unknown History glipiZIDE [Glucotrol] 10 mg PO QDAY 01/06/21 01/06/21 Unknown History risperiDONE [RisperDAL] 0.5 mg PO HS 01/06/21 01/06/21 Unknown History Amlodipine Besylate [Norvasc] 5 mg PO DAILY #30 06/22/21 Unknown Rx Metoprolol Xl [Metoprolol 25 mg PO QDAY #30 tablet 06/22/21 Unknown Rx SUCCINATE ER TAB] cephALEXin [Keflex] 500 mg PO Q12HR #10 cap 06/22/21 Unknown Rx ED Physical Exam - General Limitations: No Limitations General appearance: alert, in no apparent distress - Head Head exam: Present: atraumatic, normocephalic, normal inspection - Eye Eye exam: Present: normal appearance - ENT ENT exam: Present: normal exam, normal orophraynx, mucous membranes moist - Neck Neck exam: Present: normal inspection, full ROM. Absent: tenderness, meni ngismus - Respiratory Respiratory exam: Present: normal lung sounds bilaterally - Cardiovascular Cardiovascular Exam: Present: tachycardia, normal heart sounds - GI/Abdominal GI/Abdominal exam: Present: soft, normal bowel sounds. Absent: distended, tenderness, guarding, rebound, rigid, organomegaly, mass, bruit, pulsatile mass, hernia - Extremities Exam Extremities exam: Present: normal inspection, full ROM, normal capillary refill. Absent: tenderness - Back Exam Back exam: Present: normal inspection, full ROM. Absent: CVA tenderness (R), CVA tenderness (L) - Neurological Exam Neurological exam: Present: alert. Absent: motor sensory deficit - Psychiatric Psychiatric exam: Present: anxious. Absent: homicidal ideation, suicidal ideation - Skin Skin exam: Present: warm, intact, normal color ED Course Vital Signs 06/21/21 06/22/21 06/22/21 18:25 02:14 12:41 Temperature 97.1 F L 97.9 F Pulse Rate 120 H 111 H Respiratory 18 16 18 Rate Blood Pressure Blood Pressure 193/105 154/96 [Right] O2 Sat by Pulse 97 96 98 Oximetry 06/22/21 06/22/21 16:02 16:27 Temperature Pulse Rate 107 H 107 H Respiratory Rate Blood Pressure 189/97 Blood Pressure [Right] O2 Sat by Pulse 100 Oximetry ED Medical Decision Making - Lab Data Result diagrams: 06/21/21 19:39 06/21/21 19:39 - Radiology Data Radiology results: report reviewed - Medical Decision Making Patient is 60 years old male with history of hypertension diabetes. Patient b rought to the emergency room via EMS from home for mental health evaluation. Patient stated that he started to hearing voices that are not there and is bothering him and he want to be checked. Patient denied any visual hallucination. He also denied any suicidal homicidal ideation. Patient stated that this happened to him before but he went away. Patient denied any specific psychiatric diagnosis before. Patient became agitated and required Geodon for restraint. Labs reviewed and is unremarkable except for chronic kidney impairment. CT brain is negative for acute finding. Urinalysis and UDS is still pending. Patient is medically cleared to be evaluated by psychiatry. Critical care attestation.: If time is entered above; I have spent that time in minutes in the direct care of this critically ill patient, excluding procedure time. ED Disposition Clinical Impression: Auditory hallucination, Chronic renal insufficiency Disposition: HOME / SELF CARE / HOMELESS Is pt being admited?: No Condition: Stable Instructions: Food Basics for Chronic Kidney Disease, Chronic Kidney Disease, Adult, [id number], Preventing Chronic Kidney Disease Additional Instructions: Professional and Agency Contacts To help [facility] Crises(09/10) [place] Crisis Line: Suicide Prevention Line: Crisis Text Line: Text START to 102859 Emergency: 911 Outpatient COMMUNITY Behavioral Health Resources: [place]: [facility] [address] [place], [place] [address] [facility] - [address] [address] [facility] - [address] [place] [address] Sunday thru Sunday - 8am - 5pm [place]: [facility] Address: [address] [place] [address] [facility] Address: [address] [place] [address] Sunday thru Sunday- 7am-2pm [facility] Address: [address] [place] [address] Sunday thru Sunday: 8:30AM-5PM Prescriptions: cephALEXin [Keflex] 500 mg PO Q12HR #10 cap Metoprolol Xl [Metoprolol SUCCINATE ER TAB] 25 mg PO QDAY #30 tablet Amlodipine Besylate [Norvasc] 5 mg PO DAILY #30 Referrals: PRIMARY CARE, [Primary Care Provider] - 3-5 Days
[2021-06-21 19:59] LABS: Basophils # (Auto) 0.1 K/mm3 (0.0-0.1); Basophils % (Auto) 0.8 % (0.0-1.8); Eosinophils % (Auto) 0.2 % (0.0-4.3); Hematocrit 39.1 % (35.5-45.6); Hemoglobin 13.1 gm/dl (11.8-15.2); Lymphocytes # (Auto) 1.5 K/mm3 (1.2-5.4); Lymphocytes % (Auto) 14.5 % (13.4-35.0); Mean Corpuscular HGB Conc 34 % (32-34); Mean Corpuscular Volume 83 fl (84-94); Monocytes # (Auto) 0.6 K/mm3 (0.0-0.8); Monocytes % (Auto) 6.1 % (0.0-7.3); Platelet Count 266 K/mm3 (140-440); Red Blood Count 4.71 M/mm3 (3.65-5.03); Red Cell Distribution Width 15.2 % (13.2-15.2)
[2021-06-21] MEDS ORDERED: ZIPRASIDONE MESYLATE 20 MG VIAL IM ONE (20:07)
[2021-06-21 20:21] LABS: Calcium 9.1 mg/dL (8.4-10.2)
--- NOTE | 2021-06-21 21:34 | Cat Scan Report ---
NONENHANCED CT SCAN OF THE HEAD: INDICATION / CLINICAL INFORMATION: 60 years Male; AMS. TECHNIQUE: Routine CT head without contrast. All CT scans at this location are performed using CT dos e reduction for ALARA by means of automated exposure control. COMPARISON: CT scan of the head from November 2019 FINDINGS: BRAIN / INTRACRANIAL CONTENTS: No acute hemorrhage, mass effect, midline shift, hydrocephalus, or acu te, large territorial infarct. Chronic changes in the left centrum semiovale in the frontal region e xtending towards ocampo radiata and in the right centrum semiovale; periventricular confluent low-att enuation areas due to chronic small vessel disease; no acute focal lesion in the brainstem or in the cerebellar hemispheres CT findings unchanged CRANIOCERVICAL JUNCTION: No significant abnormality. ORBITS: No significant abnormality of visualized orbits. SINUSES / MASTOIDS: No significant abnormality of the visualized paranasal sinuses or mastoid air cande ls. ADDITIONAL FINDINGS: None. IMPRESSION: No acute focal parenchymal lesion Signer Name: Sam Cross MD Signed: 06/21/2021 9:29 PM Workstation Name: [email or web address]
[2021-06-21] MEDS ORDERED: cloNIDine 0.1 MG TAB PO ONE (21:36)
[2021-06-22 07:46] LABS: Bacteria,Urine 1+ /HPF (Negative); Bilirubin,Urine NEG (Negative); Blood,Urine NEG (Negative); Color,Urine Yellow (Yellow); Mucus,Urine FEW /HPF; Urobilinogen,Urine < 2.0 mg/dL (<2.0)
[2021-06-22 07:52] LABS: Amphetamine Screen,Urine Negative; Benzodiazepines Screen,Urine Negative; Cocaine Screen,Urine Negative; Methadone Screen,Urine Negative; Opiate Screen,Urine Negative
[2021-06-22 08:06] LABS: Cannabinoid Screen,Urine Positive
--- NOTE | 2021-06-22 11:29 | Consultation ---
History of Present Illness - Reason for Consult Consult date: 06/22/21 Reason for consult: mental health evaluation - History of Present Psychiatric Illness The patient is a 60 year old male with unknown psychiatric history. In my interview with the patient, he is calm, alert and oriented x2. The patient states he came to the ED because he was having hallucinations. The patient is a poor historian hence it was difficult to obtain information. He denies any current suicidal ideation. Collateral information from patient's sister Katheryn @ [phone]: She reports that the patient that the patient hallucinates " he does like this when his sugar go up." She states he does not have a psych diagnosis. PAST PSYCHIATRIC HISTORY Diagnoses: Denies Suicide attempts or Self-harm behavior:Denies Prior psychiatric hospitalizations: Denies Substance Abuse history:Denies Previous psychiatric medications tried:Denies Outpatient treatment: Denies SOCIAL HISTORY Marital Status: Single Living Arrangements: Lives with sister and brother Employment Status: Unemployed Access to guns/weapons: Denies Education: 12th grade History of abuse: Denies Legal History: Denies ROS Constitutional: Negative for weight loss EMT: Respiratory: Negative for cough or hemoptysis All other systems reviewed and are negative MENTAL STATUS EXAMINATION General Appearance: Dressed appropriately. Behavior: Calm and cooperative. Good eye contact. Mood: ok Affect: congruent to stated mood Speech: Normal Thought Process: Goal directed Thought Content:Denies Suicidal Ideation:Denies Homicidal Ideation: Denies Hallucinations: Denies Delusions: None elicited Insight and Judgment: Limited Memory/Cognition: Limited Assessment and Plan (1)Unspecified mood disorder Treatment Plan No medications prescribed Risks, benefits and alternatives of medications discussed with the patient, questions answered and consent obtained from patient. PSYCHOTHERAPY: Supportive psychotherapy provided MEDICAL: Per primary team DELIRIUM PRECAUTIONS: Please re-orient patient frequently, keep lights on during the day, and minimize benzodiazepines and opiates as these medications could worsen patient's confusion. TECHNICAL SUPPORT INTERNSHIP: Per primary DISPOSITION:Do not recommend acute inpatient psychiatric hospitalization at this time. Director Writing will provide patient with psychiatric out patient resources. Will sign off. Thank you for the consult. Please contact with any questions and/or concerns. Case discussed with Dr. Chua who agrees with current disposition Medications and Allergies Medications and Allergies Allergies Allergy/AdvReac Type Severity Reaction Status Date / Time No Known Allergies Allergy Verified 06/14/21 07:08 Home Medications Medication Instructions Recorded Confirmed Last Taken Type Ascorbic Acid 500 mg PO DAILY 01/07/14 01/07/14 Unknown History Docusate Sodium [Colace CAP] 100 mg PO BID 01/07/14 01/07/14 Unknown History Insulin Lispro [HumaLOG VIAL] 1 - 10 units SQ ACHS PRN 01/07/14 01/07/14 Unknown History Multivit,Calc,Mins/Iron/Folic 1 tab PO DAILY 01/07/14 01/07/14 Unknown History [Thera M Plus Tablet] Zinc Sulfate 220 mg PO DAILY 01/07/14 01/07/14 Unknown History ALPRAZolam [Xanax TAB] 0.25 mg PO BID PRN #7 tablet 01/16/14 Unknown Rx Atorvastatin (Nf) [Lipitor] 10 mg PO HS #30 tablet 01/16/14 Unknown Rx Clopidogrel Bisulfate [Plavix] 75 mg PO DAILY #30 tablet 01/16/14 Unknown Rx Famotidine [Pepcid] 20 mg PO BID #60 tablet 01/16/14 Unknown Rx Insulin Glargine,Hum.rec.anlog 17 units SQ HS 30 Days ml 01/16/14 Unknown Rx [Lantus VIAL] Metoprolol [Lopressor TAB] 12.5 mg PO Q12H #30 tablet 01/16/14 Unknown Rx Nicotine [Habitrol] 21 mg TD DAILY #7 patch 01/16/14 Unknown Rx PARoxetine [Paxil] 20 mg PO DAILY #30 tablet 01/16/14 Unknown Rx amLODIPine 5 mg PO DAILY #30 tablet 01/16/14 Unknown Rx glyBURIDE [Diabeta] 5 mg PO BID #60 tablet 01/16/14 Unknown Rx oxyCODONE /ACETAMINOPHEN [Percocet 1 - 2 tab PO Q4H PRN #14 tablet 01/16/14 Unknown Rx 5/325 mg] AtorvaSTATin [Lipitor] 40 mg PO QHS #30 tablet 08/18/17 01/06/21 03/20/18 Rx Pantoprazole [Protonix TAB] 40 mg PO BID #60 tablet 04/08/19 01/06/21 Unknown Rx Ondansetron [Zofran Odt] 4 mg PO Q8HR PRN #12 tab.rapdis 02/18/20 Unknown Rx Acetaminophen [Acetaminophen TAB] 500 mg PO Q8H PRN 01/06/21 01/06/21 Unknown History Calcium Carbonate [Calcium 650 mg PO BID 01/06/21 01/06/21 Unknown History Carbonate 650MG TAB] Chlorhexidine Mouthwash [Peridex] 15 ml MM TID 01/06/21 01/06/21 Unknown History Ergocalciferol [Vitamin D2] 1 cap PO QWEEK 01/06/21 01/06/21 Unknown History Gabapentin 1 cap PO QAM 01/06/21 01/06/21 Unknown History Gabapentin 600 mg PO QHS 01/06/21 01/06/21 Unknown History Hydralazine HCl 50 mg PO BID 01/06/21 01/06/21 Unknown History Insulin Glargine,Hum.rec.anlog 16 unit SQ HS 01/06/21 01/06/21 Unknown History [Basaglar Kwikpen U-100] Losartan [Cozaar] 100 mg PO QDAY 01/06/21 01/06/21 Unknown History Ondansetron [Zofran ODT TAB] 8 mg PO Q68H PRN 01/06/21 01/06/21 Unknown History glipiZIDE [Glucotrol] 10 mg PO QDAY 01/06/21 01/06/21 Unknown History risperiDONE [RisperDAL] 0.5 mg PO HS 01/06/21 01/06/21 Unknown History Mental Status Exam - Vital signs Last Vital Signs Temp 97.1 F L 06/21/21 18:25 Pulse 120 H 06/21/21 18:25 Resp 16 06/22/21 02:14 BP 193/105 06/21/21 18:25 Pulse Ox 96 06/22/21 02:14 Results Result Diagrams: 06/21/21 19:39 06/21/21 19:39 Abnormal lab results 06/21/21 06/21/21 06/21/21 Range/Units 19:39 19:39 19:39 MCV 83 L (84-94) fl Seg Neutrophils % 78.4 H (40.0-70.0) % Seg Neutrophils # 8.0 H (1.8-7.7) K/mm3 Sodium 136 L (137-145) mmol/L Carbon Dioxide 19 L (22-30) mmol/L BUN 22 H (9-20) mg/dL Creatinine 1.8 H (0.8-1.3) mg/dL Glucose 246 H (75-100) mg/dL Urine WBC (Auto) (0.0-6.0) /HPF Salicylates < 0.3 L (2.8-20.0) mg/dL Acetaminophen (10.0-30.0) ug/mL 06/21/21 06/22/21 Range/Units 19:39 Unknown MCV (84-94) fl Seg Neutrophils % (40.0-70.0) % Seg Neutrophils # (1.8-7.7) K/mm3 Sodium (137-145) mmol/L Carbon Dioxide (22-30) mmol/L BUN (9-20) mg/dL Creatinine (0.8-1.3) mg/dL Glucose (75-100) mg/dL Urine WBC (Auto) 8.0 H (0.0-6.0) /HPF Salicylates (2.8-20.0) mg/dL Acetaminophen 5.0 L (10.0-30.0) ug/mL All other labs normal.
--- NOTE | 2021-06-22 12:12 | Event Note ---
Date: 06/22/21 This patient is stable and was cleared by the psych provider for discharge. Psych provider recommended outpatient follow-up. Patient's vital signs within normal limits and wants to go home.
[2021-06-22] MEDS ORDERED: LORazepam 1 MG TAB PO ONE (14:43)
--- NOTE | 2021-06-22 14:59 | XRay Report ---
CHEST 2 VIEWS INDICATION / CLINICAL INFORMATION: tachycardia. COMPARISON: One view of the chest from 02/18/2020. FINDINGS: SUPPORT DEVICES: None. HEART / MEDIASTINUM: No significant abnormality. LUNGS / PLEURA: No significant pulmonary abnormality. No significant pleural effusion. No pneumothora x. ADDITIONAL FINDINGS: No significant additional findings. IMPRESSION: 1. No acute abnormality of the chest. Signer Name: Julito Thomas MD Signed: 06/22/2021 2:54 PM Workstation Name: [email or web address]
[2021-06-22] MEDS ORDERED: LIDOCAINE-MPF (1%) 10 MG/1 ML VIAL 5 ML INFILTRATI ONE (16:02)
[2021-06-22] MEDS ORDERED: METOPROLOL TARTRATE 50 MG TAB PO ONE (16:09)
[2021-06-22] MEDS ORDERED: amLODIPine 5 MG TAB PO ONE (16:10)
[2021-06-22 16:31] VITALS: BP 189/97
--- NOTE | 2021-06-23 10:37 | Electrocardiograph Report ---
[facility] Test Date: 2021-06-22 Test Time: 14:11:40 Pat Name: WILFRID DESIR Department: Room: Gender: M Quality Coordinator: GP : 1960 Requested By: JULIA AUGUSTINE Order Number: [id number] Reading MD: Wes Leung Measurements Intervals [place] Rate: 115 P: 89 NH: 140 QRS: -103 QRSD: 139 T: 58 QT: 367 QTc: 507 Interpretive Statements Sinus tachycardia Biatrial enlargement RBBB and LAFB ST elevation secondary to IVCD ST elevation, consider anterolateral injury Compared to ECG 01/05/2021 14:59:51 No significant change is noted. Electronically Signed On 06-23-2021 10:37:23 EDT by Wes Leung
== END 2021-06-22 17:53 | disposition home or self-care (01) ==
LOC: EEVIPCON 18:22 → ED 18:22
DX: R44.1 Visual hallucinations (principal); N18.9 Chronic kidney disease, unspecified; I12.9 Hypertensive chronic kidney disease with stage 1 through stage 4 chronic kidney disease, or unspecified chronic kidney disease; E11.22 Type 2 diabetes mellitus with diabetic chronic kidney disease; J44.9 Chronic obstructive pulmonary disease, unspecified; Z79.899 Other long term (current) drug therapy; R41.82 Altered mental status, unspecified
CPT/HCPCS: 36415; 70450; 71046; 80048; 80307; 81001; 84484; 85025; 93005; 96372; 99285; J0696; J3486; J3490; 80320; G0480

== ENCOUNTER 2021-09-01 17:52 | Observation (INO) | payer MEDICARE, OTHER ==
--- NOTE | 2021-09-01 21:43 | Emergency Department Report ---
ED General Adult HPI - General Chief complaint: Hypoglycemia Stated complaint: HYPOGLYCEMIA Time Seen by Provider: 09/01/21 21:30 Source: patient, EMS Mode of arrival: Stretcher Limitations: No Limitations, Physical Limitation - History of Present Illness Initial comments: Patient is 60 years old male with history of diabetes, hypertension, COPD and bilateral below-knee amputation. Patient brought to the emergency room for evaluation of hypoglycemia. Patient received dextrose 50% by EMS. Patient blood sugar in the ER is 270. Patient is alert, oriented x3 in no acute distress. Patient denied any symptoms specifically patient denied any chest p ain, shortness of breath, nausea or vomiting and abdominal pain also. No fever or chills. Patient is taking Lantus. - Related Data Home Medications Medication Instructions Recorded Confirmed Last Taken Ascorbic Acid 500 mg PO DAILY 01/07/14 01/07/14 Unknown Zinc Sulfate 220 mg PO DAILY 01/07/14 01/07/14 Unknown Calcium Carbonate [Calcium 650 mg PO BID 01/06/21 01/06/21 Unknown Carbonate 650MG TAB] Ergocalciferol [Vitamin D2] 1 cap PO QWEEK 01/06/21 01/06/21 Unknown Insulin Glargine,Hum.rec.anlog 16 unit SQ HS 01/06/21 01/06/21 Unknown [Basaglar Kwikpen U-100] Losartan [Cozaar] 100 mg PO QDAY 01/06/21 01/06/21 Unknown risperiDONE [RisperDAL] 0.5 mg PO HS 01/06/21 01/06/21 Unknown Previous Rx's Medication Instructions Recorded Last Taken Type Clopidogrel Bisulfate [Plavix] 75 mg PO DAILY #30 tablet 01/16/14 Unknown Rx PARoxetine [Paxil] 20 mg PO DAILY #30 tablet 01/16/14 Unknown Rx ALPRAZolam [Xanax TAB] 0.25 mg PO BID PRN #7 tablet 08/08/21 Unknown Rx AtorvaSTATin [Lipitor] 40 mg PO QHS #30 tablet 08/08/21 Unknown Rx Chlorhexidine Mouthwash [Peridex] 15 ml MM TID #1 bottle 08/08/21 Unknown Rx Docusate Sodium [Colace CAP] 100 mg PO BID #20 cap 08/08/21 Unknown Rx Gabapentin 600 mg PO QHS #30 cap 08/08/21 Unknown Rx Hydralazine HCl 50 mg PO BID #60 08/08/21 Unknown Rx Metoprolol [Lopressor TAB] 12.5 mg PO Q12H #30 tablet 08/08/21 Unknown Rx Pantoprazole [Protonix TAB] 40 mg PO BID #30 tablet 08/08/21 Unknown Rx amLODIPine 5 mg PO DAILY #30 tablet 08/08/21 Unknown Rx bisacodyL [Dulcolax] 10 mg PO DAILY PRN #14 tab 08/08/21 Unknown Rx cefUROXime [Ceftin] 2 tab PO Q12H 3 Days #12 08/08/21 Unknown Rx Allergies Allergy/AdvReac Type Severity Reaction Status Date / Time No Known Allergies Allergy Verified 06/14/21 07:08 ED Review of Systems ROS: Stated complaint: HYPOGLYCEMIA Other details as noted in HPI Comment: All other systems reviewed and negative Constitutional: denies: chills, fever Respiratory: denies: cough, shortness of breath, SOB with exertion, SOB at rest Cardiovascular: denies: chest pain, palpitations Gastrointestinal: denies: abdominal pain, nausea, vomiting Musculoskeletal: denies: back pain ED Past Medical Hx - Past Medical History Hx Hypertension: Yes Hx Heart Attack/AMI: No Hx Congestive Heart Failure: No Hx Diabetes: Yes Hx Renal Disease: Yes (CKD) Hx Seizures: No Hx Asthma: No Hx COPD: Yes Additional medical history: high cholesterol - Surgical History Additional Surgical History: bilat bka - Social History Smoking Status: Never Smoker - Medications Home Medications: Home Medications Medication Instructions Recorded Confirmed Last Taken Type Ascorbic Acid 500 mg PO DAILY 01/07/14 01/07/14 Unknown History Zinc Sulfate 220 mg PO DAILY 01/07/14 01/07/14 Unknown History Clopidogrel Bisulfate [Plavix] 75 mg PO DAILY #30 tablet 01/16/14 Unknown Rx PARoxetine [Paxil] 20 mg PO DAILY #30 tablet 01/16/14 Unknown Rx Calcium Carbonate [Calcium 650 mg PO BID 01/06/21 01/06/21 Unknown History Carbonate 650MG TAB] Ergocalciferol [Vitamin D2] 1 cap PO QWEEK 01/06/21 01/06/21 Unknown History Insulin Glargine,Hum.rec.anlog 16 unit SQ HS 01/06/21 01/06/21 Unknown History [Basaglar [place] U-100] Losartan [Cozaar] 100 mg PO QDAY 01/06/21 01/06/21 Unknown History risperiDONE [RisperDAL] 0.5 mg PO HS 01/06/21 01/06/21 Unknown History ALPRAZolam [Xanax TAB] 0.25 mg PO BID PRN #7 tablet 08/08/21 Unknown Rx AtorvaSTATin [Lipitor] 40 mg PO QHS #30 tablet 08/08/21 Unknown Rx Chlorhexidine Mouthwash [Peridex] 15 ml MM TID #1 bottle 08/08/21 Unknown Rx Docusate Sodium [Colace CAP] 100 mg PO BID #20 cap 08/08/21 Unknown Rx Gabapentin 600 mg PO QHS #30 cap 08/08/21 Unknown Rx Hydralazine HCl 50 mg PO BID #60 08/08/21 Unknown Rx Metoprolol [Lopressor TAB] 12.5 mg PO Q12H #30 tablet 08/08/21 Unknown Rx Pantoprazole [Protonix TAB] 40 mg PO BID #30 tablet 08/08/21 Unknown Rx amLODIPine 5 mg PO DAILY #30 tablet 08/08/21 Unknown Rx bisacodyL [Dulcolax] 10 mg PO DAILY PRN #14 tab 08/08/21 Unknown Rx cefUROXime [Ceftin] 2 tab PO Q12H 3 Days #12 08/08/21 Unknown Rx ED Physical Exam - General Limitations: No Limitations, Physical Limitation General appearance: alert, in no apparent distress - Head Head exam: Present: atraumatic, normocephalic, normal inspection - Eye Eye exam: Present: normal appearance - ENT ENT exam: Present: normal exam, normal orophraynx, mucous membranes moist - Neck Neck exam: Present: normal inspection, full ROM. Absent: tenderness, meningismus - Respiratory Respiratory exam: Present: normal lung sounds bilaterally - Cardiovascular Cardiovascular Exam: Present: regular rate, normal rhythm, normal heart sounds - GI/Abdominal GI/Abdominal exam: Present: soft, normal bowel sounds. Absent: distended, tenderness, guarding, rebound, rigid, hypoactive bowel sounds, pulsatile mass - Neurological Exam Neurological exam: Present: alert, oriented X3, CN II-XII intact - Psychiatric Psychiatric exam: Present: normal mood - Skin Skin exam: Present: warm ED Course Vital Signs 09/01/21 09/01/21 19:44 23:30 Temperature 98.1 F Pulse Rate 90 Respiratory 18 19 Rate Blood Pressure 112/80 [Left] O2 Sat by Pulse 100 98 Oximetry ED Medical Decision Making - Lab Data Result diagrams: 09/01/21 22:39 09/01/21 22:39 - EKG Data -: EKG Interpreted by Me EKG shows normal: sinus rhythm Rate: normal - EKG Data Interpretation: no acute changes - Medical Decision Making Patient is 60 years old male with history of diabetes, hypertension, COPD and bilateral below-knee amputation. Patient brought to the emergency room for evaluation of hypoglycemia. Patient received dextrose 50% by EMS. Patient blood sugar in the ER is 270. Patient is alert, oriented x3 in no acute distress. Patient denied any symptoms specifically patient denied any chest pain, shortness of breath, nausea or vomiting and abdominal pain also. No fever or chills. Patient is taking Lantus. Patient blood glucose dropped again to 31. Patient received dextrose 50%. I started patient on dextrose 10% at 125 mL/h. Labs reviewed and is unremarkable except for blood glucose of 50. I discussed the patient with Dr. Go, he agreed to admit the patient to medical service for further management. Critical Care Time: Yes Critical care time in (mins) excluding proc time.: 35 Critical care attestation.: If time is entered above; I have spent that time in minutes in the direct care of this critically ill patient, excluding procedure time. ED Disposition Clinical Impression: Acute metabolic encephalopathy due to hypoglycemia Disposition: ADMITTED INPATIENT Is pt being admited?: Yes Condition: Stable
[2021-09-01 23:06] LABS: Basophils % (Auto) 0.3 % (0.0-1.8); Eosinophils # (Auto) 0.1 K/mm3 (0.0-0.4); Eosinophils % (Auto) 1.1 % (0.0-4.3); Hematocrit 32.6 % (35.5-45.6); Hemoglobin 11.2 gm/dl (11.8-15.2); Lymphocytes # (Auto) 1.5 K/mm3 (1.2-5.4); Lymphocytes % (Auto) 17.7 % (13.4-35.0); Mean Corpuscular HGB Conc 34 % (32-34); Mean Corpuscular Volume 86 fl (84-94); Monocytes # (Auto) 0.6 K/mm3 (0.0-0.8); Platelet Count 319 K/mm3 (140-440); Red Blood Count 3.81 M/mm3 (3.65-5.03); Red Cell Distribution Width 15.3 % (13.2-15.2)
[2021-09-01] MEDS ORDERED: DEXTROSE 50% IN WATER (25GM) 50 ML SYRINGE IV ONE ×2 (23:09→23:12)
[2021-09-01 23:22] LABS: BUN/Creatinine Ratio 11; Blood Urea Nitrogen 16 mg/dL (9-20); Hemolysis Index 5
[2021-09-01] MEDS ORDERED: DEXTROSE 10% IN WATER 1,000 ML IV SCH (23:45)
[2021-09-02] MEDS ORDERED: ACETAMINOPHEN 325 MG TAB PO PRN (01:07)
[2021-09-02] MEDS ORDERED: DEXTROSE 50% IN WATER (25GM) 50 ML SYRINGE IV PRN (01:07)
[2021-09-02] MEDS ORDERED: MORPHINE 4 MG/1 ML INJ IV PRN (01:07)
[2021-09-02] MEDS ORDERED: ALBUTEROL 2.5 MG/3 ML NEBU IH PRN (01:07)
[2021-09-02] MEDS ORDERED: MORPHINE 2 MG/1 ML INJ IV PRN (01:07)
[2021-09-02] MEDS ORDERED: ONDANSETRON 4 MG/2 ML INJ IV PRN (01:07)
--- NOTE | 2021-09-02 01:14 | History and Physical Report ---
History of Present Illness Date of examination: 09/02/21 Date of admission: 09/02/21 Chief complaint: Hypoglycemia Altered mental status History of present illness: 60 years old male with history of diabetes, hypertension, COPD and bilateral below-knee amputation was brought to the emergency room for evaluation of hypoglycemia. Patient received dextrose 50% by EMS. Patient blood sugar in the ER is 270. Patient is alert, oriented x3 in no acute distress. Patient denied any symptoms specifically patient denied any chest pain, shortness of breath, nausea or vomiting and abdominal pain also. No fever or chills. Patient is taking Lantus. Patient blood glucose dropped again to 31. Patient received dextrose 50%. we started patient on dextrose 10% at 125 mL/h. Labs reviewed and is unremarkable except for blood glucose of 50. Past History Past Medical History: COPD, diabetes, hypertension, hyperlipidemia, renal failure Past Surgical History: Other (Bilateral below-knee amputation) Social history: no significant social history Family history: hypertension Medications and Allergies Allergies Allergy/AdvReac Type Severity Reaction Status Date / Time No Known Allergies Allergy Verified 06/14/21 07:08 Home Medications Medication Instructions Recorded Confirmed Last Taken Type Ascorbic Acid 500 mg PO DAILY 01/07/14 01/07/14 Unknown History Zinc Sulfate 220 mg PO DAILY 01/07/14 01/07/14 Unknown History Clopidogrel Bisulfate [Plavix] 75 mg PO DAILY #30 tablet 01/16/14 Unknown Rx PARoxetine [Paxil] 20 mg PO DAILY #30 tablet 01/16/14 Unknown Rx Calcium Carbonate [Calcium 650 mg PO BID 01/06/21 01/06/21 Unknown History Carbonate 650MG TAB] Ergocalciferol [Vitamin D2] 1 cap PO QWEEK 01/06/21 01/06/21 Unknown History Insulin Glargine,Hum.rec.anlog 16 unit SQ HS 01/06/21 01/06/21 Unknown History [Basaglar Kwikpen U-100] Losartan [Cozaar] 100 mg PO QDAY 01/06/21 01/06/21 Unknown History risperiDONE [RisperDAL] 0.5 mg PO HS 01/06/21 01/06/21 Unknown History ALPRAZolam [Xanax TAB] 0.25 mg PO BID PRN #7 tablet 08/08/21 Unknown Rx AtorvaSTATin [Lipitor] 40 mg PO QHS #30 tablet 08/08/21 Unknown Rx Chlorhexidine Mouthwash [Peridex] 15 ml MM TID #1 bottle 08/08/21 Unknown Rx Docusate Sodium [Colace CAP] 100 mg PO BID #20 cap 08/08/21 Unknown Rx Gabapentin 600 mg PO QHS #30 cap 08/08/21 Unknown Rx Hydralazine HCl 50 mg PO BID #60 08/08/21 Unknown Rx Metoprolol [Lopressor TAB] 12.5 mg PO Q12H #30 tablet 08/08/21 Unknown Rx Pantoprazole [Protonix TAB] 40 mg PO BID #30 tablet 08/08/21 Unknown Rx amLODIPine 5 mg PO DAILY #30 tablet 08/08/21 Unknown Rx bisacodyL [Dulcolax] 10 mg PO DAILY PRN #14 tab 08/08/21 Unknown Rx cefUROXime [Ceftin] 2 tab PO Q12H 3 Days #12 08/08/21 Unknown Rx Active Meds: Active Medications Dextrose (D10w) 1,000 mls @ 125 mls/hr IV DIRECT VISHAL Last Admin: 09/01/21 23:24 Dose: 125 mls/hr Review of Systems All systems: negative Constitutional: fatigue, malaise, other (Altered mental status) Exam - Constitutional Vitals: Temp Pulse Resp BP Pulse Ox 98.1 F 90 19 112/80 98 09/01/21 19:44 09/01/21 19:44 09/01/21 23:30 09/01/21 19:44 09/01/21 23:30 General appearance: Present: no acute distress, well-nourished - EENT Eyes: Present: PERRL ENT: hearing intact, clear oral mucosa - Neck Neck: Present: supple, normal ROM - Respiratory Respiratory effort: normal Respiratory: bilateral: CTA - Cardiovascular Heart Sounds: Present: S1 & S2. Absent: rub, click - Extremities Extremities: pulses symmetrical, No edema Peripheral Pulses: within normal limits - Abdominal General gastrointestinal: Present: soft, non-tender, non-distended, normal bowel sounds Male genitourinary: Present: normal - Integumentary Integumentary: Present: clear, warm, dry - Musculoskeletal Musculoskeletal: strength equal bilaterally, other (Bilateral below-knee amputation) - Psychiatric Psychiatric: appropriate mood/affect, intact judgment & insight - Neurologic Neurologic: CNII-XII intact, moves all extremities HEART Score - HEART Score Troponin: Troponin T < 0.010 ng/mL (0.00-0.029) 09/01/21 22:39 Results - Labs CBC & Chem 7: 09/01/21 22:39 09/01/21 22:39 Labs: Laboratory Last Values WBC 8.7 K/mm3 (4.5-11.0) 09/01/21 22:39 RBC 3.81 M/mm3 (3.65-5.03) 09/01/21 22:39 Hgb 11.2 gm/dl (11.8-15.2) L 09/01/21 22:39 Hct 32.6 % (35.5-45.6) L 09/01/21:39 MCV 86 fl (84-94) 09/01/21 22:39 MCH 29 pg (28-32) 09/01/21:39 MCHC 34 % (32-34) 09/01/21:39 RDW 15.3 % (13.2-15.2) H 09/01/21:39 Plt Count 319 K/mm3 (140-440) 09/01/21 22:39 Lymph % (Auto) 17.7 % (13.4-35.0) 09/01/21 22:39 [place] % (Auto) 7.0 % (0.0-7.3) 09/01/21 22:39 Eos % (Auto) 1.1 % (0.0-4.3) 09/01/21: Baso % (Auto) 0.3 % (0.0-1.8) 09/01/21:39 Lymph # (Auto) 1.5 K/mm3 (1.2-5.4) 09/01/21 22:39 [place] # (Auto) 0.6 K/mm3 (0.0-0.8) 09/01/21 22:39 Eos # (Auto) 0.1 K/mm3 (0.0-0.4) 09/01/21 22:39 Baso # (Auto) 0.0 K/mm3 (0.0-0.1) 09/01/21 22:39 Seg Neutrophils % 73.9 % (40.0-70.0) H 09/01/21 22:39 Seg Neutrophils # 6.4 K/mm3 (1.8-7.7) 09/01/21 22:39 Sodium 140 mmol/L (137-145) 09/01/21 22:39 Potassium 3.7 mmol/L (3.6-5.0) 09/01/21 22:39 Chloride 103.4 mmol/L (98-107) 09/01/21 22:39 Carbon Dioxide 23 mmol/L (22-30) 09/01/21 22:39 Anion Gap 17 mmol/L 09/01/21 22:39 BUN 16 mg/dL (9-20) 09/01/21 22:39 Creatinine 1.4 mg/dL (0.8-1.3) H 09/01/21 22:39 Estimated GFR > 60 ml/min 09/01/21 22:39 BUN/Creatinine Ratio 11 % 09/01/21 22:39 Glucose 50 mg/dL (75-100) L 09/01/21 22:39 POC Glucose 318 mg/dL (70-105) H 09/01/21 23:58 Calcium 9.0 mg/dL (8.4-10.2) 09/01/21 22:39 Troponin T < 0.010 ng/mL (0.00-0.029) 09/01/21 22:39 Assessment and Plan VTE prophylaxis?: Mechanical Plan of care discussed with patient/family: Yes - Patient Problems (1) Acute metabolic encephalopathy Status: Acute Plan to address problem: Admit the patient to the medical telemetry. Metabolic encephalopathy secondary to hypoglycemia. We will put the patient on D10. We will monitor the glucose closely. We will consult diabetic education. Recheck CBC CMP in the morning (2) Hypoglycemia Status: Acute Plan to address problem: Patient is on dextrose 10% at 125 cc/h. We will monitor the glucose closely. We will consult diabetic education. Recheck CBC and BMP in the morning (3) Hyperlipidemia Status: Chronic Plan to address problem: Is stable. We will continue the home medication. (4) Hypertension Status: Chronic Plan to address problem: Hydralazine 10 mg IV every 6 hours as needed. We continue the home medication (5) IDDM (insulin dependent diabetes mellitus) Status: Chronic Plan to address problem: Accu-Chek every 6 hours with Humalog low-dose coverage. Diabetic education. Recheck CMP in the morning (6) S/P BKA (below knee amputation) bilateral Status: Chronic Plan to address problem: Stable. Continue current medication. (7) DVT prophylaxis Status: Acute Plan to address problem: Heparin 5000 units subcu every 12 hours for DVT prophylaxis. Pepcid 20 mg IV every 12 hours for GI prophylaxis. Patient is a full code
[2021-09-02] MEDS ORDERED: hydrALAZINE 20 MG/1 ML INJ IV PRN (01:16)
[2021-09-02] MEDS: IPRATROPIUM/ALBUTEROL SULFATE 3 ML AMPUL.NEB IH SCH ×4 (03:01→20:30)
[2021-09-02] MEDS: HEPARIN 5,000 UNIT/1 ML VIAL SUB-Q SCH ×2 (09:11→22:47)
[2021-09-02] MEDS: FAMOTIDINE 20 MG/2 ML INJ IV SCH ×2 (09:11→22:38)
--- NOTE | 2021-09-02 09:58 | Progress Note ---
Assessment and Plan Assessment and plan: (1) Acute metabolic encephalopathy Status: Acute Plan to address problem: Admit the patient to the medical telemetry. Metabolic encephalopathy secondary to hypoglycemia. We will put the patient on D10. We will monitor the glucose closely. We will consult diabetic education. Recheck CBC CMP in the morning (2) Hypoglycemia Status: Acute Plan to address problem: Patient is on dextrose 10% at 125 cc/h. We will monitor the glucose closely. We will consult diabetic education. Recheck CBC and BMP in the morning (3) Hyperlipidemia Status: Chronic Plan to address problem: Is stable. We will continue the home medication. (4) Hypertension Status: Chronic Plan to address problem: Hydralazine 10 mg IV every 6 hours as needed. We continue the home medication (5) IDDM (insulin dependent diabetes mellitus) Status: Chronic Plan to address problem: Accu-Chek every 6 hours with Humalog low-dose coverage. Diabetic education. Recheck CMP in the morning (6) S/P BKA (below knee amputation) bilateral Status: Chronic Plan to address problem: Stable. Continue current medication. (7) DVT prophylaxis Status: Acute Plan to address problem: Heparin 5000 units subcu every 12 hours for DVT prophylaxis. Pepcid 20 mg IV every 12 hours for GI prophylaxis. Patient is a full code Closely monitor the patient and adjust management as needed Plan of care reviewed with the patient and his nurse History Interval history: I have seen and examined the patient at the bedside Patient's chart and medications reviewed Patient was admitted with hypoglycemia Diabetes medications held Vital signs Hospitalist Physical - Constitutional Vitals: Temp Pulse Resp BP Pulse Ox 98.7 F 111 H 16 152/84 93 09/02/21 06:45 09/02/21 09:09 09/02/21 08:30 09/02/21 09:09 09/02/21 09:33 General appearance: Present: no acute distress, well-nourished - EENT Eyes: Present: PERRL, EOM intact - Neck Neck: Present: supple, normal ROM - Respiratory Respiratory effort: normal Respiratory: bilateral: diminished, negative: rales, rhonchi, wheezing - Cardiovascular Rhythm: regular Heart Sounds: Present: S1 & S2 - Extremities Extremities: no ischemia, No edema - Abdominal General gastrointestinal: soft, non-tender, non-distended, normal bowel sounds - Integumentary Integumentary: Present: clear, warm - Psychiatric Psychiatric: appropriate mood/affect, cooperative - Neurologic Neurologic: CNII-XII intact, moves all extremities HEART Score - HEART Score Troponin: Troponin T < 0.010 ng/mL (0.00-0.029) 09/01/21 22:39 Results - Labs CBC & Chem 7: 09/01/21 22:39 09/01/21 22:39 Labs: Laboratory Last Values WBC 8.7 K/mm3 (4.5-11.0) 09/01/21 22:39 RBC 3.81 M/mm3 (3.65-5.03) 09/01/21 22:39 Hgb 11.2 gm/dl (11.8-15.2) L 09/01/21 22:39 Hct 32.6 % (35.5-45.6) L 09/01/21 22:39 MCV 86 fl (84-94) 09/01/21 22:39 MCH 29 pg (28-32) 09/01/21: MCHC 34 % (32-34) 09/01/21: RDW 15.3 % (13.2-15.2) H 09/01/21 22:39 Plt Count 319 K/mm3 (140-440) 09/01/21 22:39 Lymph % (Auto) 17.7 % (13.4-35.0) 09/01/21 22:39 [place] % (Auto) 7.0 % (0.0-7.3) 09/01/21 22:39 Eos % (Auto) 1.1 % (0.0-4.3) 09/01/21: Baso % (Auto) 0.3 % (0.0-1.8) 09/01/21 22:39 Lymph # (Auto) 1.5 K/mm3 (1.2-5.4) 09/01/21:39 [place] # (Auto) 0.6 K/mm3 (0.0-0.8) 09/01/21 22:39 Eos # (Auto) 0.1 K/mm3 (0.0-0.4) 09/01/21 22:39 Baso # (Auto) 0.0 K/mm3 (0.0-0.1) 09/01/21 22:39 Seg Neutrophils % 73.9 % (40.0-70.0) H 09/01/21 22:39 Seg Neutrophils # 6.4 K/mm3 (1.8-7.7) 09/01/21 22:39 Sodium 140 mmol/L (137-145) 09/01/21 22:39 Potassium 3.7 mmol/L (3.6-5.0) 09/01/21 22:39 Chloride 103.4 mmol/L (98-107) 09/01/21 22:39 Carbon Dioxide 23 mmol/L (22-30) 09/01/21 22:39 Anion Gap 17 mmol/L 09/01/21 22:39 BUN 16 mg/dL (9-20) 09/01/21 22:39 Creatinine 1.4 mg/dL (0.8-1.3) H 09/01/21 22:39 Estimated GFR > 60 ml/min 09/01/21 22:39 BUN/Creatinine Ratio 11 % 09/01/21 22:39 Glucose 50 mg/dL (75-100) L 09/01/21 22:39 POC Glucose 279 mg/dL (70-105) H 09/02/21 03:05 Calcium 9.0 mg/dL (8.4-10.2) 09/01/21 22:39 Troponin T < 0.010 ng/mL (0.00-0.029) 09/01/21 22:39 [place]/IV: Voiding Method Condom Catheter Active Medications - Current Medications Current Medications: Generic Name Dose Route Start Last Admin Trade Name Freq PRN Reason Stop Dose Admin Acetaminophen 650 mg 09/02/21 01:07 Acetaminophen 325 Mg Tab PO Q4H PRN Pain MILD(1-3)/Fever >100.5/VALENTINE Albuterol 2.5 mg 09/02/21 01:07 Albuterol 2.5 Mg/3 Ml Nebu IH Q3HRT PRN Shortness Of Breath Albuterol/Ipratropium 1 ampul 09/02/21 02:00 09/02/21 08:24 Ipratropium/Albuterol Sulfate 3 Ml Ampul.Neb IH 1 ampul Q6HRT VISHAL Administration Dextrose 50 ml 09/02/21 01:07 Dextrose 50% In Water (25gm) 50 Ml Syringe IV Q30MIN PRN Hypoglycemia Protocol Famotidine 20 mg 09/02/21 10:00 09/02/21 09:11 Famotidine 20 Mg/2 Ml Inj IV 20 mg BID VISHAL Administration Heparin Sodium (Porcine) 5,000 unit 09/02/21 10:00 09/02/21 09:11 Heparin 5,000 Unit/1 Ml Vial SUB-Q 5,000 unit Q12HR VISHAL Administration Hydralazine HCl 10 mg 09/02/21 01:16 09/02/21 01:32 Hydralazine 20 Mg/1 Ml Inj IV 10 mg Q6H PRN Administration Blood Pressure Dextrose 1,000 mls @ 125 mls/hr 09/01/21 23:45 09/01/21 23:24 D10w IV 125 mls/hr DIRECT VISHAL Administration Insulin Human Lispro 0 unit 09/02/21 06:00 Insulin Lispro 100 Unit/Ml SUB-Q Q6HR [facility] Protocol Morphine Sulfate 2 mg 09/02/21 01:07 Morphine 2 Mg/1 Ml Inj IV Q4H PRN Pain, Moderate (4-6) Morphine Sulfate 4 mg 09/02/21 01:07 Morphine 4 Mg/1 Ml Inj IV Q4H PRN Pain , Severe (7-10) Ondansetron HCl 4 mg 09/02/21 01:07 Ondansetron 4 Mg/2 Ml Inj IV Q8H PRN Nausea And Vomiting Sodium Chloride 10 ml 09/02/21 10:00 Sodium Chloride 0.9% 10 Ml Flush Syringe IV BID VISHAL Sodium Chloride 10 ml 09/02/21 01:07 Sodium Chloride 0.9% 10 Ml Flush Syringe IV PRN PRN LINE FLUSH
--- NOTE | 2021-09-02 11:27 | Electrocardiograph Report ---
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
[2021-09-02] MEDS: INSULIN LISPRO 100 UNIT/ML SUB-Q SCH ×3 (13:00→22:37)
[2021-09-02 21:38] LABS: Bilirubin,Urine NEG (Negative); Blood,Urine SM (Negative); Color,Urine Yellow (Yellow); Urobilinogen,Urine < 2.0 mg/dL (<2.0)
[2021-09-02 21:39] LABS: Mucus,Urine FEW /HPF; RBC,Urine < 1.0 /HPF (0.0-6.0)
[2021-09-02] MEDS ORDERED: INSULIN GLARGINE 100 UNITS/ML SUB-Q SCH (22:00)
[2021-09-02] MEDS ORDERED: GABAPENTIN 300 MG CAP PO SCH (22:00)
[2021-09-03] MEDS: INSULIN LISPRO 100 UNIT/ML SUB-Q SCH ×3 (00:03→12:11)
[2021-09-03] MEDS: IPRATROPIUM/ALBUTEROL SULFATE 3 ML AMPUL.NEB IH SCH ×3 (01:58→14:42)
[2021-09-03 05:48] LABS: Basophils # (Auto) 0.1 K/mm3 (0.0-0.1); Basophils % (Auto) 0.6 % (0.0-1.8); Eosinophils % (Auto) 0.5 % (0.0-4.3); Hemoglobin 11.8 gm/dl (11.8-15.2); Lymphocytes # (Auto) 2.3 K/mm3 (1.2-5.4); Lymphocytes % (Auto) 24.9 % (13.4-35.0); Mean Corpuscular HGB Conc 33 % (32-34); Mean Corpuscular Volume 88 fl (84-94); Monocytes # (Auto) 0.8 K/mm3 (0.0-0.8); Monocytes % (Auto) 8.1 % (0.0-7.3); Platelet Count 315 K/mm3 (140-440); Red Blood Count 4.11 M/mm3 (3.65-5.03); Red Cell Distribution Width 15.3 % (13.2-15.2)
[2021-09-03 06:12] LABS: Calcium 8.9 mg/dL (8.4-10.2)
[2021-09-03 08:34] VITALS: BP 137/87
[2021-09-03] MEDS: FAMOTIDINE 20 MG/2 ML INJ IV SCH (09:28)
[2021-09-03] MEDS: HEPARIN 5,000 UNIT/1 ML VIAL SUB-Q SCH (09:28)
[2021-09-03] MEDS ORDERED: amLODIPine 5 MG TAB PO SCH (10:00)
[2021-09-03] MEDS ORDERED: CLOPIDOGREL 75 MG TAB PO SCH (10:00)
--- NOTE | 2021-09-03 12:01 | Discharge Summary ---
Providers - Providers Date of Admission: 09/02/21 01:07 Date of discharge: 09/03/21 Attending physician: DILEEP GUIDRY 09/02/21 01:07 Consult to Dietitian/Nutrition [CONS] Routine Physician Instructions: Reason For Exam: Reason for Consult: Diet education Primary care physician: KALLIE HERNANDEZ Hospitalization Reason for admission: Metabolic encephalopathy/hypoglycemia Condition: Stable Hospital course: 60-year-old male patient with significant past medical history of diabetes mellitus hypertension, COPD, bilateral below-knee amputation was admitted through emergency room with altered level of consciousness and encephalopathy secondary to hypoglycemia patient received D50 given by the EMS and in the ER blood sugars were 270 patient slowly became alert and awake initially patient's insulin was held later gradually resumed at lower dose of Lantus patient counseled importance of adhering to the treatment plan and avoiding hypoglycemia Patient's hemoglobin A1c was 7.0, Today patient is comfortable no new complaints vital signs stable Has history of bilateral below-knee amputations, patient has prosthesis at home Patient is hemodynamically and clinically stable at discharge Discharge diagnosis: -- Acute metabolic encephalopathy Admit the patient to the medical telemetry. Metabolic encephalopathy secondary to hypoglycemia. We will put the patient on D10. We will monitor the glucose closely. We will consult diabetic education. Recheck CBC CMP in the morning -- Hypoglycemia Patient is on dextrose 10% at 125 cc/h. We will monitor the glucose closely. We will consult diabetic education. Recheck CBC and BMP in the morning -- Hyperlipidemia Is stable. We will continue the home medication. -- Hypertension Hydralazine 10 mg IV every 6 hours as needed. We continue the home medication -- IDDM (insulin dependent diabetes mellitus) Accu-Chek every 6 hours with Humalog low-dose coverage. Diabetic education. Recheck CMP in the morning -- S/P BKA (below knee amputation) bilateral Stable. Continue current medication. --Obesity ; BMI 35.6 --DVT prophylaxis Heparin 5000 units subcu every 12 hours for DVT prophylaxis. Pepcid 20 mg IV every 12 hours for GI prophylaxis. Patient is a full code Patient's blood sugars are well improved Patient strongly advised to avoid hypoglycemia Continue his home medications as before Stable at discharge Disposition: HOME / SELF CARE / HOMELESS Final Discharge Diagnosis (Prints w/discharge instructions): Acute metabolic encephalopathy/resolved. Hypoglycemia/resolved. Dyslipidemia. Hypertension. Type 2 diabetes mellitus. Status post BKA bilateral lower extremities. Obesity BMI 35.6 Time spent for discharge: 35 minutes Core Measure Documentation - Palliative Care Palliative Care/ Comfort Measures: Not Applicable - Core Measures Any of the following diagnoses?: none Exam - Constitutional Vitals: Temp Pulse Resp BP Pulse Ox 97.8 F 100 H 18 137/87 97 09/03/21 08:08 09/03/21 09:16 09/03/21 11:43 09/03/21 08:08 09/03/21 11:43 General appearance: Present: no acute distress, well-nourished - EENT Eyes: Present: PERRL, EOM intact - Neck Neck: Present: supple, normal ROM - Respiratory Respiratory effort: normal Respiratory: bilateral: diminished, negative: rales, rhonchi, wheezing - Cardiovascular Rhythm: regular Heart Sounds: Present: S1 & S2 - Extremities Extremities: no ischemia, No edema - Abdominal General gastrointestinal: Present: soft, non-tender, non-distended, normal bowel sounds - Integumentary Integumentary: Present: clear, warm - Musculoskeletal Musculoskeletal: strength equal bilaterally, generalized weakness - Psychiatric Psychiatric: appropriate mood/affect Plan Activity: advance as tolerated Diet: diabetic Additional Instructions: If you have worsening symptoms contact MD or go to the nearest emergency room as needed. Advised to follow-up with primary care physician. Continue your medications as before. Avoid hypoglycemia Follow up with: KALLIE HERNANDEZ MD [Primary Care Provider] - 7 Days Prescriptions: Insulin Glargine,Hum.rec.anlog [Imani Mulligan U-100] 16 unit SQ HS #2
[2021-09-04] MEDS ORDERED: FAMOTIDINE 20 MG TAB PO SCH (10:00)
== END 2021-09-03 16:33 | disposition home or self-care (01) ==
LOC: ED 17:52 → INTOOBSV 09-02 01:07 → 4A 09-02 01:07
PROVIDERS: ADMIT Hospitalist; ATTEND Internal Medicine
DX: G93.41 Metabolic encephalopathy (principal); E11.649 Type 2 diabetes mellitus with hypoglycemia without coma; I12.9 Hypertensive chronic kidney disease with stage 1 through stage 4 chronic kidney disease, or unspecified chronic kidney disease; N18.9 Chronic kidney disease, unspecified; E11.22 Type 2 diabetes mellitus with diabetic chronic kidney disease; E78.5 Hyperlipidemia, unspecified; J44.9 Chronic obstructive pulmonary disease, unspecified; E66.9 Obesity, unspecified; E78.00 Pure hypercholesterolemia, unspecified; N17.9 Acute kidney failure, unspecified; Z89.522 Acquired absence of left knee; Z89.521 Acquired absence of right knee; Z79.4 Long term (current) use of insulin; Z68.35 Body mass index [BMI] 35.0-35.9, adult
CPT/HCPCS: 36415; 80048; 81001; 82962; 83036; 84484; 85025; 93005; 94640; 96361; 96372; 96374; 96375; 96376; 99291; G0378; J0360; J1644; J3490; Q9967; J1815

== ENCOUNTER 2021-11-14 09:01 | Emergency (ER) | payer MEDICARE ==
--- NOTE | 2021-11-14 12:07 | Event Note ---
ED Screening Note ED Screening Note: 61-year-old male with multiple medical history brought in by ambulance for abdominal pain. Patient reports has been having this pain in his left left side of his belly for 1 week with vomiting. He denies fever, no diarrhea, no chest pain, no shortness of breath, no headache dizziness vision changes, no he moptysis or bloody stool. No recent travel. General: Nontoxic appearing no acute distress Cardiac: Regular rate, normal heart sounds Respiratory: Normal lung sounds bilaterally no use of engraver block muscles GI/-normal sounds, nontender no guarding, limited evaluation due to interview area Musculoskeletal-normal inspection , ambulates with assistive device Neuro-alert oriented x4. In the setting of a significantly high volume and record number of patients presenting to the emergency department and the fact that we have a limited space to see patients we have implemented the provider in triage protocol this allows an expedited initial exam of patients that might otherwise have left without being seen or who would wait longer than usual to be seen by provider. I interviewed the patient and performed a limited physical exam. This patient is a pulled from the waiting room to triage room for an initial assessment of adrenal studies and then returned to the waiting room pending results of the studies. The ultimate final evaluation and disposition may be performed by another provider depending on room and provider availability.
[2021-11-14 18:09] LABS: Hematocrit 40.7 % (35.5-45.6); Hemoglobin 14.2 gm/dl (11.8-15.2); Mean Corpuscular HGB Conc 35 % (32-34); Mean Corpuscular Volume 83 fl (84-94); Platelet Count 251 K/mm3 (140-440); Red Blood Count 4.88 M/mm3 (3.65-5.03)
--- NOTE | 2021-11-14 18:23 | Emergency Department Report ---
ED Abdominal Pain HPI - General Chief Complaint: Abdominal Pain Stated Complaint: ABD PAIN X 1 WEEK /DEHYDRATION Time Seen by Provider: 11/14/21 17:56 Source: EMS Mode of arrival: Stretcher Limitations: No Limitations, Physical Limitation - History of Present Illness Initial Comments: 61-year-old male with history of hypertension, diabetes, presenting with abdominal pain and dehydration. Patient reports experiencing abdominal x1 week with associated nausea vomiting. Describes pain all over, without fever, without diarrhea. Pain is worse with nothing and improves with nothing, patient reports he feels like he might be dehydrated. He denies hemoptysis, he denies bloody stool, no diarrhea, no fever or chills, no chest pain cough cold congestion, no headache dizziness or vision changes. MD Complaint: abdominal pain -: Gradual Location: diffuse Radiation: none Severity: moderate Quality: aching Consistency: intermittent Improves With: nothing Worsens With: nothing Associated Symptoms: nausea, vomiting. denies: diarrhea, fever, chills, constipation - Related Data Home Medications Medication Instructions Recorded Confirmed Last Taken Ascorbic Acid 500 mg PO DAILY 01/07/14 01/07/14 Unknown Zinc Sulfate 220 mg PO DAILY 01/07/14 01/07/14 Unknown Calcium Carbonate [Calcium 650 mg PO BID 01/06/21 01/06/21 Unknown Carbonate 650MG TAB] Ergocalciferol [Vitamin D2] 1 cap PO QWEEK 01/06/21 01/06/21 Unknown Losartan [Cozaar] 100 mg PO QDAY 01/06/21 01/06/21 Unknown risperiDONE [RisperDAL] 0.5 mg PO HS 01/06/21 01/06/21 Unknown Previous Rx's Medication Instructions Recorded Last Taken Type Clopidogrel Bisulfate [Plavix] 75 mg PO DAILY #30 tablet 01/16/14 Unknown Rx PARoxetine [Paxil] 20 mg PO DAILY #30 tablet 01/16/14 Unknown Rx ALPRAZolam [Xanax TAB] 0.25 mg PO BID PRN #7 tablet 08/08/21 Unknown Rx AtorvaSTATin [Lipitor] 40 mg PO QHS #30 tablet 08/08/21 Unknown Rx Chlorhexidine Mouthwash [Peridex] 15 ml MM TID #1 bottle 08/08/21 Unknown Rx Docusate Sodium [Colace CAP] 100 mg PO BID #20 cap 08/08/21 Unknown Rx Gabapentin 600 mg PO QHS #30 cap 08/08/21 Unknown Rx Hydralazine HCl 50 mg PO BID #60 08/08/21 Unknown Rx Metoprolol [Lopressor TAB] 12.5 mg PO Q12H #30 tablet 08/08/21 Unknown Rx amLODIPine 5 mg PO DAILY #30 tablet 08/08/21 Unknown Rx bisacodyL [Dulcolax tab] 10 mg PO DAILY PRN #14 tab 08/08/21 Unknown Rx cefUROXime [Ceftin] 2 tab PO Q12H 3 Days #12 08/08/21 Unknown Rx Insulin Glargine,Hum.rec.anlog 16 unit SQ HS #2 09/03/21 Unknown Rx [Basaglar Kwikpen U-100] Ondansetron [Zofran Odt] 4 mg PO Q6HR PRN #20 tab.rapdis 11/14/21 Unknown Rx Pantoprazole [Protonix TAB] 40 mg PO BID #30 tablet 11/14/21 Unknown Rx Allergies Allergy/AdvReac Type Severity Reaction Status Date / Time No Known Allergies Allergy Verified 06/14/21 07:08 ED Review of Systems ROS: Stated complaint: ABD PAIN X 1 WEEK /DEHYDRATION Other details as noted in HPI Comment: All other systems reviewed and negative Constitutional: denies: chills, diaphoresis, fever ENT: denies: ear pain, throat pain Respiratory: denies: cough, shortness of breath Cardiovascular: denies: chest pain, palpitations, edema Endocrine: denies: intolerance to cold, intolerance to heat Gastrointestinal: abdominal pain, nausea, vomiting Musculoskeletal: denies: back pain, joint swelling Skin: denies: rash Neurological: denies: headache, weakness, numbness Psychiatric: denies: auditory hallucinations, homicidal thoughts, suicidal thoughts Hematological/Lymphatic: denies: easy bleeding ED Past Medical Hx - Past Medical History Hx Hypertension: Yes Hx Heart Attack/AMI: No Hx Congestive Heart Failure: No Hx Diabetes: Yes Hx GERD: Yes Hx Renal Disease: Yes (CKD) Hx Seizures: No Hx Asthma: No Hx COPD: Yes Additional medical history: high cholesterol - Surgical History Additional Surgical History: bilat bka - Social History Smoking Status: Never Smoker - Medications Home Medications: Home Medications Medication Instructions Recorded Confirmed Last Taken Type Ascorbic Acid 500 mg PO DAILY 01/07/14 01/07/14 Unknown History Zinc Sulfate 220 mg PO DAILY 01/07/14 01/07/14 Unknown History Clopidogrel Bisulfate [Plavix] 75 mg PO DAILY #30 tablet 01/16/14 Unknown Rx PARoxetine [Paxil] 20 mg PO DAILY #30 tablet 01/16/14 Unknown Rx Calcium Carbonate [Calcium 650 mg PO BID 01/06/21 01/06/21 Unknown History Carbonate 650MG TAB] Ergocalciferol [Vitamin D2] 1 cap PO QWEEK 01/06/21 01/06/21 Unknown History Losartan [Cozaar] 100 mg PO QDAY 01/06/21 01/06/21 Unknown History risperiDONE [RisperDAL] 0.5 mg PO HS 01/06/21 01/06/21 Unknown History ALPRAZolam [Xanax TAB] 0.25 mg PO BID PRN #7 tablet 08/08/21 Unknown Rx AtorvaSTATin [Lipitor] 40 mg PO QHS #30 tablet 08/08/21 Unknown Rx Chlorhexidine Mouthwash [Peridex] 15 ml MM TID #1 bottle 08/08/21 Unknown Rx Docusate Sodium [Colace CAP] 100 mg PO BID #20 cap 08/08/21 Unknown Rx Gabapentin 600 mg PO QHS #30 cap 08/08/21 Unknown Rx Hydralazine HCl 50 mg PO BID #60 08/08/21 Unknown Rx Metoprolol [Lopressor TAB] 12.5 mg PO Q12H #30 tablet 08/08/21 Unknown Rx amLODIPine 5 mg PO DAILY #30 tablet 08/08/21 Unknown Rx bisacodyL [Dulcolax tab] 10 mg PO DAILY PRN #14 tab 08/08/21 Unknown Rx cefUROXime [Ceftin] 2 tab PO Q12H 3 Days #12 08/08/21 Unknown Rx Insulin Glargine,Hum.rec.anlog 16 unit SQ HS #2 09/03/21 Unknown Rx [Basaglar Kwikpen U-100] Ondansetron [Zofran Odt] 4 mg PO Q6HR PRN #20 tab.rapdis 11/14/21 Unknown Rx Pantoprazole [Protonix TAB] 40 mg PO BID #30 tablet 11/14/21 Unknown Rx ED Physical Exam - General Limitations: No Limitations General appearance: alert, in no apparent distress - Head Head exam: Present: atraumatic - Eye Eye exam: Present: normal appearance, PERRL Pupils: Present: normal accommodation - ENT ENT exam: Present: normal exam, normal orophraynx - Neck Neck exam: Present: normal inspection - Respiratory Respiratory exam: Present: normal lung sounds bilaterally. Absent: respiratory distress - Cardiovascular Cardiovascular Exam: Present: regular rate, normal rhythm - GI/Abdominal GI/Abdominal exam: Present: soft, normal bowel sounds. Absent: distended, tenderness - Extremities Exam Extremities exam: Present: normal inspection (Bilateral BKA, patient wearing artificial limbs) - Back Exam Back exam: Present: normal inspection, full ROM - Neurological Exam Neurological exam: Present: alert, oriented X3 - Skin Skin exam: Present: warm, dry, normal color ED Course Vital Signs 11/14/21 09:06 Pulse Rate 110 H Respiratory 18 Rate Blood Pressure 147/103 [Left] O2 Sat by Pulse 98 Oximetry ED Medical Decision Making - Lab Data Result diagrams: 11/14/21 17:24 11/14/21 17:24 Abnormal Labs 11/14/21 11/14/21 17:24 17:24 WBC 11.3 H MCV 83 L MCHC 35 H BUN 52 H Creatinine 2.1 H Glucose 137 H Alkaline Phosphatase 205 H - Medical Decision Making 61-year-old male presenting with abdominal pain x1 week with associated nausea vomiting. Describes pain all over, without fever, without diarrhea. Pain is worse with nothing and improves with nothing. Differential diagnosis includes gastritis, gastroenteritis, colitis, pancreatitis, diverticulitis, diverticulosis, UTI, appendix appendicitis, PUD, SBO, Patient's vital signs for improved, he is afebrile, has not had any vomiting episodes throughout ED course, in fact patient was eating some [employer] chicken nuggets which he has not vomited and tolerated well. His labs are reassuring appears to be at baseline with the exception of his BUN, previous BUN/creatinine was 15 and 2.2, today BUN is 52 with creatinine of 2.1. Patient rehydrated with IV fluids, his vital signs are stable, Discharge home with supportive therapy antiemetics, dietary management with follow-up with referrals for nephrology as well. Patient remained stable nontoxic-appearing, afebrile, ambulating steadily without assistance. Gone over ED findings with patient as well as plan for follow-up. Also discussed return precautions with patient, all questions and concerns addressed. Patient is stable to be discharged follow-up outpatient. Audio voice dictation device used, hence the chart might contain some dictation errors, mispronunciations, wrong spelling and wrong verbiage. Critical care attestation.: If time is entered above; I have spent that time in minutes in the direct care of this critically ill patient, excluding procedure time. ED Disposition Clinical Impression: Dehydration, Acute renal failure, Acute gastroenteritis Disposition: HOME / SELF CARE / HOMELESS Is pt being admited?: No Does the pt Need Aspirin: No Condition: Stable Instructions: Dehydration, Adult, [id number], Acute Kidney Injury, Adult Prescriptions: Pantoprazole [Protonix TAB] 40 mg PO BID #30 tablet Ondansetron [Zofran Odt] 4 mg PO Q6HR PRN #20 tab.rapdis PRN Reason: Vomiting Referrals: ALO YI DO [Staff Physician] - 3-5 Days
[2021-11-14 19:37] LABS: Albumin 4.3 g/dL (3.9-5); Calcium 9.2 mg/dL (8.4-10.2)
[2021-11-14] MEDS ORDERED: SODIUM CHLORIDE 0.9% 1000 ML 1,000 ML IV ONE (20:06)
[2021-11-14 21:22] VITALS: BP 185/111
== END 2021-11-14 22:08 | disposition home or self-care (01) ==
LOC: ED 09:01
DX: R53.1 Weakness (principal); K52.9 Noninfective gastroenteritis and colitis, unspecified; I12.9 Hypertensive chronic kidney disease with stage 1 through stage 4 chronic kidney disease, or unspecified chronic kidney disease; E11.22 Type 2 diabetes mellitus with diabetic chronic kidney disease; N18.9 Chronic kidney disease, unspecified; K21.9 Gastro-esophageal reflux disease without esophagitis; J44.1 Chronic obstructive pulmonary disease with (acute) exacerbation; Z79.899 Other long term (current) drug therapy
CPT/HCPCS: 36415; 80053; 83690; 85027; 96360; 99283; J7030

== ENCOUNTER 2021-12-12 14:41 | Inpatient (IN) | payer MEDICARE, OTHER ==
[2021-12-12 16:37] LABS: Basophils # (Auto) 0.1 K/mm3 (0.0-0.1); Basophils % (Auto) 0.4 % (0.0-1.8); Hemoglobin 13.2 gm/dl (11.8-15.2); Lymphocytes % (Auto) 7.3 % (13.4-35.0); Mean Corpuscular HGB Conc 34 % (32-34); Mean Corpuscular Volume 84 fl (84-94); Monocytes # (Auto) 0.8 K/mm3 (0.0-0.8); Platelet Count 249 K/mm3 (140-440); Red Blood Count 4.65 M/mm3 (3.65-5.03); Red Cell Distribution Width 15.6 % (13.2-15.2)
[2021-12-12 16:53] LABS: Alanine Aminotransferase 15 units/L (7-56); Albumin 4.2 g/dL (3.9-5); BUN/Creatinine Ratio 13; Blood Urea Nitrogen 30 mg/dL (9-20); Calcium 9.5 mg/dL (8.4-10.2); Hemolysis Index 3
--- NOTE | 2021-12-12 18:16 | XRay Report ---
CHEST 1 VIEW 12/12/2021 6:00 PM INDICATION / CLINICAL INFORMATION: Chest Pain. COMPARISON: 08/06/2021 FINDINGS: SUPPORT DEVICES: None. HEART / MEDIASTINUM: No significant abnormality. LUNGS / PLEURA: No significant pulmonary or pleural abnormality. No pneumothorax. ADDITIONAL FINDINGS: No significant additional findings. IMPRESSION: 1. No acute findings. Signer Name: Jean Wei MD Signed: 12/12/2021 6:12 PM Workstation Name: [id number]
[2021-12-12] MEDS ORDERED: ONDANSETRON 4 MG/2 ML INJ IV ONE (19:25)
[2021-12-12] MEDS ORDERED: SODIUM CHLORIDE 0.9% 1000 ML 1,000 ML IV ONE (19:25)
--- NOTE | 2021-12-12 19:35 | Emergency Department Report ---
HPI - General Chief Complaint: Weakness - HPI HPI: Room 17 The patient is a poor historian states he came to the emergency department for chief complaint of nausea vomiting. When asked further details about the nausea vomiting the patient does not answer the questions appropriately. When asked if anything is bothering him the patient replies with his first name. Patient praker castellanoss confused. Per EMS family called 911 secondary to the patient's "weakness." The patient smelled of alcohol. While in the ED the patient began vomiting. ED Past Medical Hx - Past Medical History Hx Hypertension: Yes Hx Diabetes: Yes Hx GERD: Yes Hx Renal Disease: Yes (CKD) Hx COPD: Yes Additional medical history: high cholesterol - Surgical History Additional Surgical History: bilat bka - Family History Family history: no significant - Social History Smoking Status: Never Smoker Substance Use Type: None - Medications Home Medications: Home Medications Medication Instructions Recorded Confirmed Last Taken Type Ascorbic Acid 500 mg PO DAILY 01/07/14 01/07/14 Unknown History Zinc Sulfate 220 mg PO DAILY 01/07/14 01/07/14 Unknown History Clopidogrel Bisulfate [Plavix] 75 mg PO DAILY #30 tablet 01/16/14 Unknown Rx PARoxetine [Paxil] 20 mg PO DAILY #30 tablet 01/16/14 Unknown Rx Calcium Carbonate [Calcium 650 mg PO BID 01/06/21 01/06/21 Unknown History Carbonate 650MG TAB] Ergocalciferol [Vitamin D2] 1 cap PO QWEEK 01/06/21 01/06/21 Unknown History Losartan [Cozaar] 100 mg PO QDAY 01/06/21 01/06/21 Unknown History risperiDONE [RisperDAL] 0.5 mg PO HS 01/06/21 01/06/21 Unknown History ALPRAZolam [Xanax TAB] 0.25 mg PO BID PRN #7 tablet 08/08/21 Unknown Rx AtorvaSTATin [Lipitor] 40 mg PO QHS #30 tablet 08/08/21 Unknown Rx Chlorhexidine Mouthwash [Peridex] 15 ml MM TID #1 bottle 08/08/21 Unknown Rx Docusate Sodium [Colace CAP] 100 mg PO BID #20 cap 08/08/21 Unknown Rx Gabapentin 600 mg PO QHS #30 cap 08/08/21 Unknown Rx Hydralazine HCl 50 mg PO BID #60 08/08/21 Unknown Rx Metoprolol [Lopressor TAB] 12.5 mg PO Q12H #30 tablet 08/08/21 Unknown Rx amLODIPine 5 mg PO DAILY #30 tablet 08/08/21 Unknown Rx bisacodyL [Dulcolax tab] 10 mg PO DAILY PRN #14 tab 08/08/21 Unknown Rx cefUROXime [Ceftin] 2 tab PO Q12H 3 Days #12 08/08/21 Unknown Rx Insulin Glargine,Hum.rec.anlog 16 unit SQ HS #2 09/03/21 Unknown Rx [Basaglar Kwikpen U-100] Ondansetron [Zofran Odt] 4 mg PO Q6HR PRN #20 tab.rapdis 11/14/21 Unknown Rx Pantoprazole [Protonix TAB] 40 mg PO BID #30 tablet 11/14/21 Unknown Rx ED Review of Systems ROS: Stated complaint: CHEST PAIN/LETHARGIC Other details as noted in HPI Comment: Unobtainable due to pts medical conditions Physical Exam - Physical Exam Vital Signs: Vital Signs 12/12/21 14:42 Temperature 98.3 F Pulse Rate 86 Respiratory 18 Rate Blood Pressure 136/84 [Left] O2 Sat by Pulse 98 Oximetry Physical Exam: GENERAL: The patient is well-developed well-nourished male lying on stretcher with emesis bag laying under his chin not appearing to be in acute distress. [] HEENT: Normocephalic. Atraumatic. Extraocular motions are intact. Patient has moist mucous membranes. NECK: Supple. Trachea midline CHEST/LUNGS: Clear to auscultation. There is no respiratory distress noted. HEART/CARDIOVASCULAR: Regular. There is no tachycardia. There is no gallop rub or murmur. ABDOMEN: Abdomen is soft, nontender. Patient has normal bowel sounds. There is no abdominal distention. SKIN: There is no rash. There is no edema. There is no diaphoresis. NEURO: The patient is awake, slow to respond. The patient has normal speech MUSCULOSKELETAL: There is no evidence of acute injury. ED Course Vital Signs 12/12/21 14:42 Temperature 98.3 F Pulse Rate 86 Respiratory 18 Rate Blood Pressure 136/84 [Left] O2 Sat by Pulse 98 Oximetry ED Medical Decision Making - Lab Data Result diagrams: 12/12/21 15:54 12/12/21 15:54 Laboratory Tests 0912/12/21 12/12/21 15:54 15:54 20:57 WBC 13.9 H RBC 4.65 Hgb 13.2 Hct 39.0 MCV 84 MCH 28 MCHC 34 RDW 15.6 H Plt Count 249 Lymph % (Auto) 7.3 L Ramsey % (Auto) 6.0 Eos % (Auto) 0.0 Baso % (Auto) 0.4 Lymph # (Auto) 1.0 L Ramsey # (Auto) 0.8 Eos # (Auto) 0.0 Baso # (Auto) 0.1 Seg Neutrophils % 86.3 H Seg Neutrophils # 12.0 H Sodium 143 Potassium 3.6 Chloride 104.1 Carbon Dioxide 18 L Anion Gap 25 BUN 30 H Creatinine 2.4 H Estimated GFR 33 BUN/Creatinine Ratio 13 Glucose 228 H Calcium 9.5 Total Bilirubin 0.80 AST 21 ALT 15 Alkaline Phosphatase 161 H Troponin T < 0.010 < 0.010 Total Protein 6.7 Albumin 4.2 Albumin/Globulin Ratio 1.7 Lipase Plasma/Serum Alcohol 12/12/21 12/12/21 20:57 20:57 WBC RBC Hgb Hct MCV MCH MCHC RDW Plt Count Lymph % (Auto) Ramsey % (Auto) Eos % (Auto) Baso % (Auto) Lymph # (Auto) Ramsey # (Auto) Eos # (Auto) Baso # (Auto) Seg Neutrophils % Seg Neutrophils # Sodium Potassium Chloride Carbon Dioxide Anion Gap BUN Creatinine Estimated GFR BUN/Creatinine Ratio Glucose Calcium Total Bilirubin AST ALT Alkaline Phosphatase Troponin T Total Protein Albumin Albumin/Globulin Ratio Lipase 12 L Plasma/Serum Alcohol < 0.01 - EKG Data -: EKG Interpreted by Nj EKG shows normal: sinus rhythm Rate: normal - EKG Data When compared to previous EKG there are: no significant change Interpretation: unchanged when compared t (09/01/2021) - Radiology Data Radiology results: report reviewed (CT abdomen pelvis), image reviewed (CT abdo men pelvis) [facility] [address] [place] [address] Cat Scan Report Signed Patient: WILFRID DESIR MR#: [id number] : 1960 Acct:[id number] Age/Sex: 61 / M ADM Date: 12/12/21 Loc: ED Attending Dr: Ordering Physician: ANTHONY RAJPUT MD Date of Service: 12/12/21 Procedure(s): CT abdomen pelvis wo con Accession Number(s): [id number] cc: ANTHONY RAJPUT MD CT ABDOMEN AND PELVIS WITHOUT CONTRAST HISTORY: Vomiting COMPARISON: Previous CT on 02/18/2020 TECHNIQUE: Routine abdominal and pelvic CT exam performed without contrast. Lack of intravenous contrast limits evaluation of the vascular and solid organs.. All CT scans at this location are performed using CT dose reduction for ALARA by means of automated exposure control. FINDINGS: CT ABDOMEN: Lung Bases: There are some mild patchy areas of groundglass opacity in both lower lungs. Liver: No significant abnormality. Biliary: No significant abnormality. Spleen: No significant abnormality. Unenlarged. Pancreas: No significant abnormality. Adrenals: No significant abnormality. Kidneys: No significant abnormality. Lymphatics: No lymphadenopathy. Vasculature: Atherosclerotic but nonaneurysmal abdominal aorta. Bowel/Peritoneum: No significant abnormality. No free air. No free fluid. CT PELVIC: : No significant abnormality. Lymphatics: No lymphadenopathy. Osseous Structures: No aggressive appearing osseous lesions. Additional Findings: None IMPRESSION: 1. Mild patchy areas of groundglass opacity in both lower lungs suggesting multifocal pneumonia. Signer Name: Jean Wei MD Signed: 12/12/2021 8:48 PM Workstation Name: [id number] Transcribed By: TANESHA Dictated By: Jean Wei MD Electronically Authenticated By: Jean Wei MD Signed Date/Time: 12/12/212047 DD/ 46 TD/TT: - Differential Diagnosis Intoxication, gastritis, pancreatitis, Critical care attestation.: If time is entered above; I have spent that time in minutes in the direct care of this critically ill patient, excluding procedure time. ED Disposition Clinical Impression: Altered mental status, Suspected COVID-19 virus infection Disposition: ADMITTED INPATIENT Is pt being admited?: Yes Does the pt Need Aspirin: No Condition: Fair Referrals: PRIMARY CARE, [Primary Care Provider] - 3-5 Days Time of Disposition: 22:11 (Care transferred to hospitalist (Dr. Lisa))
--- NOTE | 2021-12-12 20:53 | Cat Scan Report ---
CT ABDOMEN AND PELVIS WITHOUT CONTRAST HISTORY: Vomiting COMPARISON: Previous CT on 02/18/2020 TECHNIQUE: Routine abdominal and pelvic CT exam performed without contrast. Lack of intravenous cont rast limits evaluation of the vascular and solid organs.. All CT scans at this location are performed using CT dose reduction for ALARA by means of automated exposure control. FINDINGS: CT ABDOMEN: Lung Bases: There are some mild patchy areas of groundglass opacity in both lower lungs. Liver: No significant abnormality. Biliary: No significant abnormality. Spleen: No significant abnormality. Unenlarged. Pancreas: No significant abnormality. Adrenals: No significant abnormality. Kidneys: No significant abnormality. Lymphatics: No lymphadenopathy. Vasculature: Atherosclerotic but nonaneurysmal abdominal aorta. Bowel/Peritoneum: No significant abnormality. No free air. No free fluid. CT PELVIC: : No significant abnormality. Lymphatics: No lymphadenopathy. Osseous Structures: No aggressive appearing osseous lesions. Additional Findings: None IMPRESSION: 1. Mild patchy areas of groundglass opacity in both lower lungs suggesting multifocal pneumonia. Signer Name: Jean Wei MD Signed: 12/12/2021 8:48 PM Workstation Name: [id number]
[2021-12-12] MEDS ORDERED: cefTRIAXone/NS 1 GM/50 ML 1 GM/50 ML BAG IV ONE (21:34)
[2021-12-12] MEDS ORDERED: AZITHROMYCIN/NS 500 MG/250 ML 500 MG/250 ML BAG IV ONE (21:34)
[2021-12-12] MEDS ORDERED: ACETAMINOPHEN 325 MG TAB PO PRN (22:26)
[2021-12-12] MEDS ORDERED: MORPHINE 2 MG/1 ML INJ IV PRN ×2 (22:26→22:50)
[2021-12-12] MEDS ORDERED: ONDANSETRON 4 MG/2 ML INJ IV PRN (22:50)
[2021-12-12] MEDS ORDERED: MORPHINE 4 MG/1 ML INJ IV PRN (22:50)
[2021-12-12] MEDS ORDERED: DEXTROSE 50% IN WATER (25GM) 50 ML SYRINGE IV PRN (22:50)
[2021-12-12] MEDS ORDERED: SODIUM CHLORIDE 0.9% 1000 ML 1,000 ML IV SCH (23:00)
--- NOTE | 2021-12-12 23:09 | History and Physical Report ---
History of Present Illness Date of examination: 12/12/21 Date of admission: 12/12/21 22:26 Chief complaint: Altered Mental Status History of present illness: 61-year-old female with known history of hypertension, diabetes mellitus, COPD and hyperlipidemia presents to the emergency room today with complaints of nausea and vomiting. Patient is a very poor historian and most of the history was obtained from the ER physician. Family was said to have called EMS because patient was feeling very weak. He was also said to have vomited upon arrival in the emergency room. Work-up in the emergency room today, lab reveals leukocytosis of 13.9. BUN of 30 and creatinine of 2.4. CT of the abdomen and pelvis shows mild patchy areas of groundglass opacity in both lower lungs suggesting multifocal pneumonia. Chest x-ray shows no acute findings. CT scan of the head shows no acute intracranial process. Patient being started on empiric IV antibiotics and IV fluid. He is to be screened for COVID-19. Past History Past Medical History: COPD, diabetes, GERD, hyperlipidemia Past Surgical History: total knee replacement (Bilateral BKA) Social history: no significant social history Medications and Allergies Allergies Allergy/AdvReac Type Severity Reaction Status Date / Time No Known Allergies Allergy Verified 12/12/21 15:31 Home Medications Medication Instructions Recorded Confirmed Last Taken Type Ascorbic Acid 500 mg PO DAILY 01/07/14 12/13/21 Unknown History Zinc Sulfate 220 mg PO DAILY 01/07/14 12/13/21 Unknown History Clopidogrel Bisulfate [Plavix] 75 mg PO DAILY #30 tablet 01/16/14 12/13/21 Unknown Rx PARoxetine [Paxil] 20 mg PO DAILY #30 tablet 01/16/14 12/13/21 Unknown Rx Calcium Carbonate [Calcium 650 mg PO BID 01/06/21 12/13/21 Unknown History Carbonate 650MG TAB] Ergocalciferol [Vitamin D2] 1 cap PO QWEEK 01/06/21 12/13/21 Unknown History Losartan [Cozaar] 100 mg PO QDAY 01/06/21 12/13/21 Unknown History risperiDONE [RisperDAL] 0.5 mg PO HS 01/06/21 12/13/21 Unknown History ALPRAZolam [Xanax TAB] 0.25 mg PO BID PRN #7 tablet 08/08/21 12/13/21 Unknown Rx AtorvaSTATin [Lipitor] 40 mg PO QHS #30 tablet 08/08/21 12/13/21 Unknown Rx Chlorhexidine Mouthwash [Peridex] 15 ml MM TID #1 bottle 08/08/21 12/13/21 Unknown Rx Docusate Sodium [Colace CAP] 100 mg PO BID #20 cap 08/08/21 12/13/21 Unknown Rx Gabapentin 600 mg PO QHS #30 cap 08/08/21 12/13/21 Unknown Rx Hydralazine HCl 50 mg PO BID #60 08/08/21 12/13/21 Unknown Rx Metoprolol [Lopressor TAB] 12.5 mg PO Q12H #30 tablet 08/08/21 12/13/21 Unknown Rx amLODIPine 5 mg PO DAILY #30 tablet 08/08/21 12/13/21 Unknown Rx bisacodyL [Dulcolax tab] 10 mg PO DAILY PRN #14 tab 08/08/21 12/13/21 Unknown Rx cefUROXime [Ceftin] 2 tab PO Q12H 3 Days #12 08/08/21 12/13/21 Unknown Rx Insulin Glargine,Hum.rec.anlog 16 unit SQ HS #2 09/03/21 12/13/21 Unknown Rx [Basaglar Kwikpen U-100] Ondansetron [Zofran Odt] 4 mg PO Q6HR PRN #20 tab.rapdis 11/14/21 12/13/21 Unknown Rx Pantoprazole [Protonix TAB] 40 mg PO BID #30 tablet 11/14/21 12/13/21 Unknown Rx Active Meds: Active Medications Acetaminophen (Acetaminophen 325 Mg Tab) 650 mg PO Q4H PRN PRN Reason: Pain MILD(1-3)/Fever >100.5/VALENTINE Acetaminophen (Acetaminophen 325 Mg Tab) 650 mg PO Q4H PRN PRN Reason: Pain MILD(1-3)/Fever >100.5/VALENTINE Azithromycin (Azithromycin 250 Mg Tab) 500 mg PO QDAY VISHAL; Protocol Dextrose (Dextrose 50% In Water (25gm) 50 Ml Syringe) 50 ml IV Q30MIN PRN; Protocol PRN Reason: Hypoglycemia Heparin Sodium (Porcine) (Heparin 5,000 Unit/1 Ml Vial) 5,000 unit SUB-Q Q8HR [facility] Sodium Chloride (Nacl 0.9% 1000 Ml) 1,000 mls @ 75 mls/hr IV DIRECT VISHAL Ceftriaxone Sodium (Rocephin/Ns 2 Gm/100 Ml) 2 gm in 100 mls @ 200 mls/hr IV Q24H VISHAL; Protocol Insulin Human Lispro (Insulin Lispro 100 Unit/Ml) 0 unit SUB-Q ACHS VISHAL; Protocol Morphine Sulfate (Morphine 2 Mg/1 Ml Inj) 2 mg IV Q4H PRN PRN Reason: Pain, Moderate (4-6) Morphine Sulfate (Morphine 2 Mg/1 Ml Inj) 2 mg IV Q4H PRN PRN Reason: Pain, Moderate (4-6) Morphine Sulfate (Morphine 4 Mg/1 Ml Inj) 4 mg IV Q4H PRN PRN Reason: Pain , Severe (7-10) Ondansetron HCl (Ondansetron 4 Mg/2 Ml Inj) 4 mg IV Q8H PRN PRN Reason: Nausea And Vomiting Sodium Chloride (Sodium Chloride 0.9% 10 Ml Flush Syringe) 10 ml IV BID VISHAL Sodium Chloride (Sodium Chloride 0.9% 10 Ml Flush Syringe) 10 ml IV PRN PRN PRN Reason: LINE FLUSH Sodium Chloride (Sodium Chloride 0.9% 10 Ml Flush Syringe) 10 ml IV BID VISHAL Sodium Chloride (Sodium Chloride 0.9% 10 Ml Flush Syringe) 10 ml IV PRN PRN PRN Reason: LINE FLUSH Review of Systems ROS unobtainable: due to mental status Exam - Constitutional Vitals: Temp Pulse Resp BP Pulse Ox 98.3 F 86 18 136/84 98 12/12/21 14:42 12/12/21 14:42 12/12/21 14:42 12/12/21 14:42 12/12/21 14:42 General appearance: Present: no acute distress, well-nourished - EENT Eyes: Present: PERRL, EOM intact. Absent: scleral icterus ENT: hearing intact, clear oral mucosa, dentition normal - Neck Neck: Present: supple, normal ROM - Respiratory Respiratory effort: normal Respiratory: bilateral: CTA - Cardiovascular Rhythm: regular Heart Sounds: Present: S1 & S2. Absent: gallop, systolic murmur, diastolic murmur, rub, click - Extremities Extremities: abnormal (Bilateral BKA) Peripheral Pulses: within normal limits - Abdominal General gastrointestinal: Present: soft, non-tender, non-distended, normal bowel sounds. Absent: mass - Integumentary Integumentary: Present: clear, warm, dry, normal turgor. Absent: rash - Musculoskeletal Musculoskeletal: strength equal bilaterally - Psychiatric Psychiatric: appropriate mood/affect, intact judgment & insight, memory intact, cooperative - Neurologic Neurologic: CNII-XII intact, no focal deficits, moves all extremities HEART Score - HEART Score Troponin: Troponin T < 0.010 ng/mL (0.00-0.029) 12/12/21 20:57 Results - Labs CBC & Chem 7: 12/12/21 15:54 12/13/21 04:13 Labs: Abnormal lab results 12/12/21 12/12/21 12/12/21 Range/Units 15:54 15:54 20:57 WBC 13.9 H (4.5-11.0) K/mm3 RDW 15.6 H (13.2-15.2) % Lymph % (Auto) 7.3 L (13.4-35.0) % Lymph # (Auto) 1.0 L (1.2-5.4) K/mm3 Seg Neutrophils % 86.3 H (40.0-70.0) % Seg Neutrophils # 12.0 H (1.8-7.7) K/mm3 Carbon Dioxide 18 L (22-30) mmol/L BUN 30 H (9-20) mg/dL Creatinine 2.4 H (0.8-1.3) mg/dL Glucose 228 H (75-100) mg/dL Alkaline Phosphatase 161 H (35-129) units/L Lipase 12 L (13-60) units/L Assessment and Plan Assessment: 1.Altered Mental Status 2.PUI 3.D/Mellitus 4.Hypertension 5. RODNEY 6. Altered mental status Plan: 1. Patient admitted and placed on empiric IV antibiotics. 2. We will resume routine home medications once reconciled. 3. Patient placed on sliding scale insulin. We will monitor Accu-Cheks. 4. We will place consult to nephrology for further evaluation and recommendations. 5. Await COVID PCR DVT Prophylaxis:SQ Heparin Code Status: Full Code
--- NOTE | 2021-12-12 23:51 | Cat Scan Report ---
CT HEAD WITHOUT CONTRAST INDICATION / CLINICAL INFORMATION: Altered mental status. TECHNIQUE: All CT scans at this location are performed using CT dose reduction for ALARA by means of automated exposure control. COMPARISON: 06/21/2021 CT brain FINDINGS: CEREBRAL/CEREBELLAR PARENCHYMA: Stable chronic left frontal infarct extending from the centrum semiov candida. The ocampo radiata. Stable smaller chronic right ocampo radiata infarct. Stable mild periventric ular chronic microangiopathy. No CT evidence for an acute or subacute territorial infarct. HEMORRHAGE: No acute intra-axial hemorrhage or extra-axial fluid collection. MASS: No mass or mass effect. VENTRICULAR SYSTEM: Normal in size and morphology for the patient's age. ORBITS: No acute process. Stable small calcification versus chronic foreign body adjacent to the left globe anteriorly. SOFT TISSUES/SKULL: No scalp hematoma or skull fracture. PARANASAL SINUSES/MASTOID AIR CELLS: Normal as visualized. IMPRESSION: 1. No acute intracranial process. 2. Stable mild chronic ischemic changes, as detailed above. Signer Name: Miguelito Briones MD Signed: 12/12/2021 11:47 PM Workstation Name: [id number]
[2021-12-13 05:18] LABS: Calcium 8.8 mg/dL (8.4-10.2)
[2021-12-13] MEDS: HEPARIN 5,000 UNIT/1 ML VIAL SUB-Q SCH ×3 (06:42→22:43)
[2021-12-13] MEDS ORDERED: chlordiazePOXIDE 25 MG CAP PO PRN (07:31)
[2021-12-13] MEDS ORDERED: LORazepam 2 MG TAB PO PRN (07:31)
[2021-12-13] MEDS ORDERED: LORazepam 2 MG/ML VIAL IV PRN (07:31)
[2021-12-13] MEDS ORDERED: LACTATED RINGERS 1,000 ML IV ONE (08:00)
[2021-12-13] MEDS: INSULIN LISPRO 100 UNIT/ML SUB-Q SCH ×2 (09:00→16:00)
[2021-12-13] MEDS: cefTRIAXone/NS 2 GM/100 ML 2 GM/100 ML BAG IV SCH (10:05)
--- NOTE | 2021-12-13 10:46 | Consultation ---
History of Present Illness - Reason for Consult Consult date: 12/13/21 PUI Requesting physician: WOODY MALDONADO - History of Present Illness The patient is a 61-year-old male with diabetes, hypertension, COPD, hyperlipidemia, bilateral BKA was admitted to the hospital yesterday with nausea, vomiting. Also feeling very weak. Poor historian. Chest x-ray did not reveal any obvious findings, afebrile. CT abdomen and pelvis revealed mild patchy areas of groundglass opacity in both lower lungs suggesting multifocal pneumonia. Labs revealed leukocytosis in addition to elevated creatinine. ID was consulted for possible PUI. COVID-19 PCR is pending. Patient is on room air. Sitting upright, no distress, does have some confusion. Review of Systems: General: no fevers,chills or rigors HEENT: no new visual disturbance Respiratory: No cough, sputum, hemoptysis or shortness of breath Cardiovascular: No chest pain, syncope Gastrointestinal: Nausea, vomiting prior to admission Genitourinary: No dysuria or hematuria Musculoskeletal: No new or worsening neck pain or back pain Neurologic: No headaches, seizures Hematologic: No easy bruising or bleeding Endocrine: No night sweats or acute weight loss Skin: negative for rash, jaundice Psychiatric: No suicidal or homicidal ideation Past History Past Medical History: COPD, diabetes, GERD, hyperlipidemia Past Surgical History: total knee replacement (Bilateral BKA) Social history: no significant social history Medications and Allergies Allergies Allergy/AdvReac Type Severity Reaction Status Date / Time No Known Allergies Allergy Verified 12/12/21 15:31 Home Medications Medication Instructions Recorded Confirmed Last Taken Type Ascorbic Acid 500 mg PO DAILY 01/07/14 12/13/21 Unknown History Zinc Sulfate 220 mg PO DAILY 01/07/14 12/13/21 Unknown History Clopidogrel Bisulfate [Plavix] 75 mg PO DAILY #30 tablet 01/16/14 12/13/21 Unknown Rx PARoxetine [Paxil] 20 mg PO DAILY #30 tablet 01/16/14 12/13/21 Unknown Rx Calcium Carbonate [Calcium 650 mg PO BID 01/06/21 12/13/21 Unknown History Carbonate 650MG TAB] Ergocalciferol [Vitamin D2] 1 cap PO QWEEK 01/06/21 12/13/21 Unknown History Losartan [Cozaar] 100 mg PO QDAY 01/06/21 12/13/21 Unknown History risperiDONE [RisperDAL] 0.5 mg PO HS 01/06/21 12/13/21 Unknown History ALPRAZolam [Xanax TAB] 0.25 mg PO BID PRN #7 tablet 08/08/21 12/13/21 Unknown Rx AtorvaSTATin [Lipitor] 40 mg PO QHS #30 tablet 08/08/21 12/13/21 Unknown Rx Chlorhexidine Mouthwash [Peridex] 15 ml MM TID #1 bottle 08/08/21 12/13/21 Unknown Rx Docusate Sodium [Colace CAP] 100 mg PO BID #20 cap 08/08/21 12/13/21 Unknown Rx Gabapentin 600 mg PO QHS #30 cap 08/08/21 12/13/21 Unknown Rx Hydralazine HCl 50 mg PO BID #60 08/08/21 12/13/21 Unknown Rx Metoprolol [Lopressor TAB] 12.5 mg PO Q12H #30 tablet 08/08/21 12/13/21 Unknown Rx amLODIPine 5 mg PO DAILY #30 tablet 08/08/21 12/13/21 Unknown Rx bisacodyL [Dulcolax tab] 10 mg PO DAILY PRN #14 tab 08/08/21 12/13/21 Unknown Rx cefUROXime [Ceftin] 2 tab PO Q12H 3 Days #12 08/08/21 12/13/21 Unknown Rx Insulin Glargine,Hum.rec.anlog 16 unit SQ HS #2 09/03/21 12/13/21 Unknown Rx [Basaglar Kwikpen U-100] Ondansetron [Zofran Odt] 4 mg PO Q6HR PRN #20 tab.rapdis 11/14/21 12/13/21 Unknown Rx Pantoprazole [Protonix TAB] 40 mg PO BID #30 tablet 11/14/21 12/13/21 Unknown Rx Active Meds: Active Medications Acetaminophen (Acetaminophen 325 Mg Tab) 650 mg PO Q4H PRN PRN Reason: Pain MILD(1-3)/Fever >100.5/VALENTINE Azithromycin (Azithromycin 250 Mg Tab) 500 mg PO QDAY VISHAL; Protocol Chlordiazepoxide HCl (Chlordiazepoxide 25 Mg Cap) 50 mg PO Q1HR PRN PRN Reason: CIWA-Ar 8-15 Dextrose (Dextrose 50% In Water (25gm) 50 Ml Syringe) 50 ml IV Q30MIN PRN; Protocol PRN Reason: Hypoglycemia Heparin Sodium (Porcine) (Heparin 5,000 Unit/1 Ml Vial) 5,000 unit SUB-Q Q8HR [facility] Last Admin: 12/13/21 06:42 Dose: 5,000 unit Ceftriaxone Sodium (Rocephin/Ns 2 Gm/100 Ml) 2 gm in 100 mls @ 200 mls/hr IV Q24H VISHAL; Protocol Insulin Human Lispro (Insulin Lispro 100 Unit/Ml) 0 unit SUB-Q ACHS VISHAL; Protocol Lorazepam (Lorazepam 2 Mg/Ml Vial) 4 mg IV Q15MIN PRN PRN Reason: CIWA-Ar >25 Lorazepam (Lorazepam 2 Mg Tab) 4 mg PO Q1HR PRN PRN Reason: CIWA-Ar 16-25 Morphine Sulfate (Morphine 2 Mg/1 Ml Inj) 2 mg IV Q4H PRN PRN Reason: Pain, Moderate (4-6) Morphine Sulfate (Morphine 4 Mg/1 Ml Inj) 4 mg IV Q4H PRN PRN Reason: Pain , Severe (7-10) Ondansetron HCl (Ondansetron 4 Mg/2 Ml Inj) 4 mg IV Q8H PRN PRN Reason: Nausea And Vomiting Sodium Chloride (Sodium Chloride 0.9% 10 Ml Flush Syringe) 10 ml IV BID VISHAL Sodium Chloride (Sodium Chloride 0.9% 10 Ml Flush Syringe) 10 ml IV PRN PRN PRN Reason: LINE FLUSH Physical Examination - Physical Exam Narrative exam: Physical Exam: Constitutional: Alert, cooperative. No acute distress Head, Ears, Nose: Normocephalic, atraumatic. External ears, nose normal Eyes: Conjunctivae/corneas clear. No icterus. No ptosis. Neck: Supple, no meningeal signs Cardiovascular: S1, S2 + Respiratory: Good air entry, clear to auscultation bilaterally GI: Soft, non-tender; bowel sounds normal. No peritoneal signs Musculoskeletal: Bilateral BKA Skin: No rash or abscess Hem/Lymphatic: No palpable cervical or supraclavicular nodes. No lymphangitis Psych: Calm, no agitation Neurological: Awake, alert, somewhat confused - Constitutional Vitals: Vital Signs Temp Pulse Resp BP Pulse Ox 98.2 F 112 H 16 153/88 94 12/13/21 05:09 12/13/21 05:09 12/13/21 05:09 12/13/21 05:09 12/13/21 05:09 Temperature -Last 24 Hours Temperature 98.2 F Temperature 98.3 F Temperature 98.3 F Results - Labs CBC & Chem 7: 12/12/21 15:54 12/13/21 04:13 Labs: Abnormal lab results 12/12/21 12/12/21 12/12/21 Range/Units 15:54 15:54 20:57 WBC 13.9 H (4.5-11.0) K/mm3 RDW 15.6 H (13.2-15.2) % Lymph % (Auto) 7.3 L (13.4-35.0) % Lymph # (Auto) 1.0 L (1.2-5.4) K/mm3 Seg Neutrophils % 86.3 H (40.0-70.0) % Seg Neutrophils # 12.0 H (1.8-7.7) K/mm3 Carbon Dioxide 18 L (22-30) mmol/L BUN 30 H (9-20) mg/dL Creatinine 2.4 H (0.8-1.3) mg/dL Glucose 228 H (75-100) mg/dL POC Glucose (70-105) mg/dL Alkaline Phosphatase 161 H (35-129) units/L Lipase 12 L (13-60) units/L 12/13/21 12/13/21 Range/Units 04:13 07:13 WBC (4.5-11.0) K/mm3 RDW (13.2-15.2) % Lymph % (Auto) (13.4-35.0) % Lymph # (Auto) (1.2-5.4) K/mm3 Seg Neutrophils % (40.0-70.0) % Seg Neutrophils # (1.8-7.7) K/mm3 Carbon Dioxide 19 L (22-30) mmol/L BUN 32 H (9-20) mg/dL Creatinine 2.3 H (0.8-1.3) mg/dL Glucose 191 H (75-100) mg/dL POC Glucose 179 H (70-105) mg/dL Alkaline Phosphatase (35-129) units/L Lipase (13-60) units/L - Imaging and Cardiology Chest x-ray: report reviewed, image reviewed (no pneumonia) Assessment and Plan Cultures: 12/13/2021 blood culture: In process A/P: 61-year-old male with diabetes, hypertension, COPD, hyperlipidemia, bilateral BKA was admitted to the hospital yesterday with nausea, vomiting. Also feeling very weak: #Bilateral pneumonitis: ? aspiration, rule out COVID-19. #AMS/acute encephalopathy #RODNEY: Renally adjust antibiotics, monitor creatinine. Recs: Follow-up COVID-19 PCR On room air, no indication for steroids at this time. Continue ceftriaxone, azithromycin for now f/u procalcitonin Aurelia Lambert MD, FACP, [facility] O: [phone] F: [phone] C: [phone]
--- NOTE | 2021-12-13 13:02 | Consultation ---
History of Present Illness - Reason for Consult acute renal failure - History of Present Illness Very pleasant 61-year-old -[place] male past medical history documented of diabetes, hypertension, dyslipidemia, who presented to emergency department secondary to symptoms of nausea, vomiting, and generalized weakness. CT of the abdomen concerning for ground glass opacities in his lungs. Nephrology was consulted secondary to admission labs concerning for acute kidney injury. Patient does not seem to be a good historian and in fact seems to be slightly confused this morning. Unclear whether he has a history previously of renal insufficiency or chronic kidney disease. Past History Past Medical History: COPD, diabetes, GERD, hyperlipidemia Past Surgical History: total knee replacement (Bilateral BKA) Social history: no significant social history Medications and Allergies Allergies Allergy/AdvReac Type Severity Reaction Status Date / Time No Known Allergies Allergy Verified 12/12/21 15:31 Home Medications Medication Instructions Recorded Confirmed Last Taken Type Ascorbic Acid 500 mg PO DAILY 01/07/14 12/13/21 Unknown History Zinc Sulfate 220 mg PO DAILY 01/07/14 12/13/21 Unknown History Clopidogrel Bisulfate [Plavix] 75 mg PO DAILY #30 tablet 01/16/14 12/13/21 Unknown Rx PARoxetine [Paxil] 20 mg PO DAILY #30 tablet 01/16/14 12/13/21 Unknown Rx Calcium Carbonate [Calcium 650 mg PO BID 01/06/21 12/13/21 Unknown History Carbonate 650MG TAB] Ergocalciferol [Vitamin D2] 1 cap PO QWEEK 01/06/21 12/13/21 Unknown History Losartan [Cozaar] 100 mg PO QDAY 01/06/21 12/13/21 Unknown History risperiDONE [RisperDAL] 0.5 mg PO HS 01/06/21 12/13/21 Unknown History ALPRAZolam [Xanax TAB] 0.25 mg PO BID PRN #7 tablet 08/08/21 12/13/21 Unknown Rx AtorvaSTATin [Lipitor] 40 mg PO QHS #30 tablet 08/08/21 12/13/21 Unknown Rx Chlorhexidine Mouthwash [Peridex] 15 ml MM TID #1 bottle 08/08/21 12/13/21 Unknown Rx Docusate Sodium [Colace CAP] 100 mg PO BID #20 cap 08/08/21 12/13/21 Unknown Rx Gabapentin 600 mg PO QHS #30 cap 08/08/21 12/13/21 Unknown Rx Hydralazine HCl 50 mg PO BID #60 08/08/21 12/13/21 Unknown Rx Metoprolol [Lopressor TAB] 12.5 mg PO Q12H #30 tablet 08/08/21 12/13/21 Unknown Rx amLODIPine 5 mg PO DAILY #30 tablet 08/08/21 12/13/21 Unknown Rx bisacodyL [Dulcolax tab] 10 mg PO DAILY PRN #14 tab 08/08/21 12/13/21 Unknown Rx cefUROXime [Ceftin] 2 tab PO Q12H 3 Days #12 08/08/21 12/13/21 Unknown Rx Insulin Glargine,Hum.rec.anlog 16 unit SQ HS #2 09/03/21 12/13/21 Unknown Rx [Basaglar Kwikpen U-100] Ondansetron [Zofran Odt] 4 mg PO Q6HR PRN #20 tab.rapdis 11/14/21 12/13/21 Unknown Rx Pantoprazole [Protonix TAB] 40 mg PO BID #30 tablet 11/14/21 12/13/21 Unknown Rx Active Meds: Active Medications Acetaminophen (Acetaminophen 325 Mg Tab) 650 mg PO Q4H PRN PRN Reason: Pain MILD(1-3)/Fever >100.5/VALENTINE Azithromycin (Azithromycin 250 Mg Tab) 500 mg PO QDAY VISHAL; Protocol Chlordiazepoxide HCl (Chlordiazepoxide 25 Mg Cap) 50 mg PO Q1HR PRN PRN Reason: CIWA-Ar 8-15 Dextrose (Dextrose 50% In Water (25gm) 50 Ml Syringe) 50 ml IV Q30MIN PRN; Protocol PRN Reason: Hypoglycemia Heparin Sodium (Porcine) (Heparin 5,000 Unit/1 Ml Vial) 5,000 unit SUB-Q Q8HR VISHAL Last Admin: 12/13/21 06:42 Dose: 5,000 unit Ceftriaxone Sodium (Rocephin/Ns 2 Gm/100 Ml) 2 gm in 100 mls @ 200 mls/hr IV Q24H VISHAL; Protocol Insulin Human Lispro (Insulin Lispro 100 Unit/Ml) 0 unit SUB-Q ACHS VISHAL; Protocol Lorazepam (Lorazepam 2 Mg/Ml Vial) 4 mg IV Q15MIN PRN PRN Reason: CIWA-Ar >25 Lorazepam (Lorazepam 2 Mg Tab) 4 mg PO Q1HR PRN PRN Reason: CIWA-Ar 16-25 Morphine Sulfate (Morphine 2 Mg/1 Ml Inj) 2 mg IV Q4H PRN PRN Reason: Pain, Moderate (4-6) Morphine Sulfate (Morphine 4 Mg/1 Ml Inj) 4 mg IV Q4H PRN PRN Reason: Pain , Severe (7-10) Ondansetron HCl (Ondansetron 4 Mg/2 Ml Inj) 4 mg IV Q8H PRN PRN Reason: Nausea And Vomiting Sodium Chloride (Sodium Chloride 0.9% 10 Ml Flush Syringe) 10 ml IV BID VISHAL Sodium Chloride (Sodium Chloride 0.9% 10 Ml Flush Syringe) 10 ml IV PRN PRN PRN Reason: LINE FLUSH Review of Systems ROS unobtainable: due to mental status Exam - Vital Signs Vital signs: Vital Signs Temp Pulse Resp BP Pulse Ox 98.3 F 86 18 136/84 98 12/12/21 14:42 12/12/21 14:42 12/12/21 14:42 12/12/21 14:42 12/12/21 14:42 - General Appearance General appearance: appears stated age EENT: ATNC Neck: Present: neck supple Respiratory: Clear to Ascultation Heart: regular Gastrointestinal: Present: normal Integumentary: no rash, warm and dry Neurologic: confused Musculoskeletal: Present: deferred Psychiatric: cooperative Results - Lab Results 12/12/21 15:54 12/13/21 04:13 Most recent lab results Calcium 8.8 mg/dL (8.4-10.2) 12/13/21 04:13 Assessment and Plan - Patient Problems (1) RODNEY (acute kidney injury) Current Visit: No Status: Acute Plan to address problem: Possibly prerenal in etiology with likely underlying chronic kidney disease at baseline. Renal ultrasound pending at this time. We will follow-up closely. We will also add urine analysis along with urine electrolytes for further ev aluation. (2) Altered mental status Current Visit: Yes Status: Acute Plan to address problem: Possibly in the setting of pneumonia process. We will continue to monitor. (3) Suspected COVID-19 virus infection Current Visit: Yes Status: Acute Plan to address problem: Pending COVID-19 testing at this time. Infectious disease recommendations evaluated. (4) HTN (hypertension) Current Visit: No Status: Chronic Qualifiers: Hypertension type: primary hypertension Qualified Code(s): I10 - Essential (primary) hypertension Plan to address problem: Monitor blood pressures under current regimen. (5) Diabetes Current Visit: Yes Status: Chronic Plan to address problem: Diabetes management per primary attending.
--- NOTE | 2021-12-13 13:23 | Ultrasound Report ---
ULTRASOUND RENAL INDICATION / CLINICAL INFORMATION: RODNEY. COMPARISON: CT abdomen pelvis 12/12/2021. FINDINGS: RIGHT KIDNEY: Length = 8.9 cm. - Echogenicity: Mildly echogenic. - Parenchymal Thickness: Mild thinning. - Hydronephrosis: None. - Cyst / Mass: None. - Stones: None seen. LEFT KIDNEY: Length = 10.0 cm. - Echogenicity: Mildly echogenic. - Parenchymal Thickness: Mild thinning. - Hydronephrosis: None. - Cyst / Mass: None. - Stones: None seen. URINARY BLADDER: Distended. No significant abnormality. FREE FLUID: None. ADDITIONAL FINDINGS: None. IMPRESSION: 1. No acute sonographic abnormality. 2. Findings suggestive of chronic medical renal disease bilaterally. Scribed by: Aruna Jones RDMS, ADRIANNE, DONNIE Scribed: 12/13/2021 11:45 AM I have reviewed the images, agree with this report, and edited this report as needed. Signer Name: Abdiaziz Green MD Signed: 12/13/2021 1:19 PM Workstation Name: [email or web address]
[2021-12-13] MEDS: AZITHROMYCIN 250 MG TAB PO SCH (15:24)
--- NOTE | 2021-12-13 15:52 | Progress Note ---
Assessment and Plan Assessment and plan: #Acute hypoxic respiratory failureresolved #Possible aspiration pneumonia versus pneumonitis #Multifocal pneumonia - etiology: Likely aspiration (possibly alcoholic consumption) - baseline oxygen requirements: Room air - supplemental oxygen: 3 L nasal cannula - Continue protocol: continue pulse oximetry, wean oxygen as tolerated, ordered incentive spirometry and educated patient on how to use it and its importance. -Continue azithromycin 500 mg daily and Rocephin 1 g every 24 hours. Unremarkable coronavirus PCR. - continue to monitor #Acute metabolic encephalopathy Unremarkable CT head noncontrast Pending blood cultures, urinalysis +/- urine culture. Infectious disease consulted; appreciate recs. #RODNEY Creatinine 2.3 (baseline unknown) Renally dose meds and avoid nephrotoxic drugs. Nephrology consulted; appreciate recs Continue to monitor #Alcohol dependence - Counseled patient on the importance of ETOH cessation. Assess patient's current ETOH consumption. Assisted with trying to arrange resources for patient to adequately work towards ETOH cessation. Patient expresses understanding. Starting CIWA protocol for -Time: +15 mins #Advanced care planning -Disease education conducted, care plan discussed, diagnoses discussed, prognosis discussed, and patient acknowledges understanding with care plan -Time: +30 min Disposition Plan: Continue medical management Total Time Spent with Patient (Minutes): 45 minutes History Interval history: No acute events overnight. Hospitalist Physical - Constitutional Vitals: Temp Pulse Resp BP Pulse Ox 98.8 F 104 H 18 185/113 100 12/13/21 10:00 12/13/21 10:00 12/13/21 10:00 12/13/21 10:12/13/21 10:00 General appearance: Present: no acute distress, well-nourished - EENT Eyes: Present: PERRL, EOM intact ENT: hearing intact, clear oral mucosa - Neck Neck: Present: supple, normal ROM - Respiratory Respiratory effort: normal Respiratory: bilateral: diminished - Cardiovascular Rhythm: regular Heart Sounds: Present: S1 & S2 - Extremities Extremities: no ischemia, pulses intact, pulses symmetrical, No edema, normal t emperature, normal color, abnormal (Bilateral BKA's) Peripheral Pulses: within normal limits - Abdominal General gastrointestinal: soft, non-tender, non-distended, normal bowel sounds - Integumentary Integumentary: Present: clear, warm, dry - Psychiatric Psychiatric: appropriate mood/affect, cooperative - Neurologic Neurologic: CNII-XII intact, moves all extremities, other (Alert and oriented x1) - Allied Health Allied health notes reviewed: nursing HEART Score - HEART Score Troponin: Troponin T < 0.010 ng/mL (0.00-0.029) 12/12/21 20:57 Results - Labs CBC & Chem 7: 12/12/21 15:54 12/13/21 04:13 Labs: Laboratory Last Values WBC 13.9 K/mm3 (4.5-11.0) H 12/12/21 15:54 RBC 4.65 M/mm3 (3.65-5.03) 12/12/21 15:54 Hgb 13.2 gm/dl (11.8-15.2) 12/12/21 15:54 Hct 39.0 % (35.5-45.6) 12/12/21 15:54 MCV 84 fl (84-94) 12/12/21 15:54 MCH 28 pg (28-32) 12/12/21 15:54 MCHC 34 % (32-34) 12/12/21 15:54 RDW 15.6 % (13.2-15.2) H 12/12/21 15:54 Plt Count 249 K/mm3 (140-440) 12/12/21 15:54 Lymph % (Auto) 7.3 % (13.4-35.0) L 12/12/21 15:54 [place] % (Auto) 6.0 % (0.0-7.3) 12/12/21 15:54 Eos % (Auto) 0.0 % (0.0-4.3) 12/12/21 15:54 Baso % (Auto) 0.4 % (0.0-1.8) 12/12/21 15:54 Lymph # (Auto) 1.0 K/mm3 (1.2-5.4) L 12/12/21 15:54 [place] # (Auto) 0.8 K/mm3 (0.0-0.8) 12/12/21 15:54 Eos # (Auto) 0.0 K/mm3 (0.0-0.4) 12/12/21 15:54 Baso # (Auto) 0.1 K/mm3 (0.0-0.1) 12/12/21 15:54 Seg Neutrophils % 86.3 % (40.0-70.0) H 12/12/21 15:54 Seg Neutrophils # 12.0 K/mm3 (1.8-7.7) H 12/12/21 15:54 Sodium 145 mmol/L (137-145) 12/13/21 04:13 Potassium 3.6 mmol/L (3.6-5.0) 12/13/21 04:13 Chloride 103.0 mmol/L (98-107) 12/13/21 04:13 Carbon Dioxide 19 mmol/L (22-30) L 12/13/21 04:13 Anion Gap 27 mmol/L 12/13/21 04:13 BUN 32 mg/dL (9-20) H 12/13/21 04:13 Creatinine 2.3 mg/dL (0.8-1.3) H 12/13/21 04:13 Estimated GFR 35 ml/min 12/13/21 04:13 BUN/Creatinine Ratio 14 % 12/13/21 04:13 Glucose 191 mg/dL (75-100) H 12/13/21 04:13 POC Glucose 179 mg/dL (70-105) H 12/13/21 07:13 Calcium 8.8 mg/dL (8.4-10.2) 12/13/21 04:13 Total Bilirubin 0.80 mg/dL (0.1-1.2) 12/12/21 15:54 AST 21 units/L (5-40) 12/12/21 15:54 ALT 15 units/L (7-56) 12/12/21 15:54 Alkaline Phosphatase 161 units/L (35-129) H 12/12/21 15:54 Troponin T < 0.010 ng/mL (0.00-0.029) 12/12/21 20:57 Total Protein 6.7 g/dL (6.3-8.2) 12/12/21 15:54 Albumin 4.2 g/dL (3.9-5) 12/12/21 15:54 Albumin/Globulin Ratio 1.7 % 12/12/21 15:54 Lipase 12 units/L (13-60) L 12/12/21 20:57 Plasma/Serum Alcohol < 0.01 % (0-0.07) 12/12/21 20:57 Coronavirus (PCR) Negative (Negative) 12/13/21 09:30 Microbiology: Microbiology 12/13/21 00:26 Peripheral/Venous Blood Culture - Preliminary Culture in Progress 12/13/21 00:26 Peripheral/Venous Blood Culture - Preliminary Culture in Progress [place]/IV: Voiding Method Diaper Active Medications - Current Medications Current Medications: Generic Name Dose Route Start Last Admin Trade Name Freq PRN Reason Stop Dose Admin Acetaminophen 650 mg 12/12/21 22:50 Acetaminophen 325 Mg Tab PO Q4H PRN Pain MILD(1-3)/Fever >100.5/VALENTINE Azithromycin 500 mg 12/13/21 10:00 12/13/21 15:24 Azithromycin 250 Mg Tab PO 500 mg QDAY VISHAL Administration Protocol Chlordiazepoxide HCl 50 mg 12/13/21 07:31 Chlordiazepoxide 25 Mg Cap PO Q1HR PRN CIWA-Ar 8-15 Dextrose 50 ml 12/12/21 22:50 Dextrose 50% In Water (25gm) 50 Ml Syringe IV Q30MIN PRN Hypoglycemia Protocol Heparin Sodium (Porcine) 5,000 unit 12/13/21 06:00 12/13/21 15:24 Heparin 5,000 Unit/1 Ml Vial SUB-Q 5,000 unit Q8HR VISHAL Administration Ceftriaxone Sodium 2 gm in 100 mls @ 200 mls/hr 12/13/21 10:00 12/13/21 10:05 Rocephin/Ns 2 Gm/100 Ml IV 200 mls/hr Q24H VISHAL Administration Protocol Insulin Human Lispro 0 unit 12/13/21 07:30 Insulin Lispro 100 Unit/Ml SUB-Q ACHS VISHAL Protocol Lorazepam 4 mg 12/13/21 07:31 Lorazepam 2 Mg/Ml Vial IV Q15MIN PRN CIWA-Ar >25 Lorazepam 4 mg 12/13/21 07:31 Lorazepam 2 Mg Tab PO Q1HR PRN CIWA-Ar 16-25 Morphine Sulfate 2 mg 12/12/21 22:50 12/13/21 15:35 Morphine 2 Mg/1 Ml Inj IV 2 mg Q4H PRN Administration Pain, Moderate (4-6) Morphine Sulfate 4 mg 12/12/21 22:50 Morphine 4 Mg/1 Ml Inj IV Q4H PRN Pain , Severe (7-10) Ondansetron HCl 4 mg 12/12/21 22:50 Ondansetron 4 Mg/2 Ml Inj IV Q8H PRN Nausea And Vomiting Sodium Chloride 10 ml 12/13/21 10:00 12/13/21 10:25 Sodium Chloride 0.9% 10 Ml Flush Syringe IV Not Given BID VISHAL Sodium Chloride 10 ml 12/12/21 22:50 Sodium Chloride 0.9% 10 Ml Flush Syringe IV PRN PRN LINE FLUSH Nutrition/Malnutrition Assess - Dietary Evaluation Nutrition/Malnutrition Findings: Nutrition Notes Start: 12/13/21 11:32 Freq: Status: Active Protocol: Document 12/13/21 11:32 TARYN (Rec: 12/13/21 12:08 TARYN [id number]) Nutrition Notes Need for Assessment generated from: MD Order,Education Initial or Follow up Assessment Current Diagnosis Acute Kidney Injury,COPD, Diabetes,Hypertension, Hyperlipidemia Other Pertinent Diagnosis AMS, Pneumonia, Leukocytosis, COVID-19 pui. Current Diet Cardiac/Consistent Carbohydrates -Renal- Diet ( since B 12/13). Labs/Tests 12/13: Cl 19, BUN 32, Crea 2.3 , Glu 191. Pertinent Medications 12/13: Nutritionally unremarkable. Height 5 ft 10 in Weight 63.5 kg [place] Body Weight (kg) 75.45 BMI 20.0 Intake Prior to Admission Good Weight change and time frame Pt denies having loss body weight [employer]. Weight Status Appropriate Subjective/Other Information RD consult for nutrition education assessment. No reports available on Pt's PO intake of meals at the time , will assess at F/U. Pt is on Room Air, O2 saturation @ 100%, according to Vital Signs notes. I will recommend Renal modification to Pt's current diet to support Pt's RODNEY condition. Pt complains of nausea and vomiting, according to Physical Assessment History notes. Pt is incontinent, according to Physical Assessment History notes. Pt presents with Bilateral-LE BKA, according to History & Physical notes. Pt still in critical condition , not a candidate for Nutrition Education at the time, will assess feasibility on F/U. Percent of energy/protein needs met: Prescribed Cardiac/Consistent Carbohydrates -Renal- Diet provides for energy/protein needs (1,977 Kcal/86 g) during LOS. Burn Absent Trauma Absent GI Symptoms Nausea,Vomiting Food Allergy No Skin Integrity/Comment Assessment WNL. Minimum of two criteria No Fluid Accumulation N/A Reduced Crate Maker Strength N/A (non-severe) Protein-Calorie Malnutrition N\A #1 Nutrition Diagnosis Altered nutrition-related laboratory values Etiology RODNEY. As Evidenced by Signs and Symptoms 12/13: Cl 19, BUN 32, Crea 2.3 , Glu 191. Is patient on ventilator? No Is Patient Ambulatory and/or Out of Bed No [facility]EE[facility] 1734.696 Kcal/Kg value to use for calculation 32 Approximate Energy Requirements Using 2 kcal/Kg Calculation Used for Recommendations Kcal/kg Additional Notes Protein: 0.8-1.2 g/Kg ABW; 51- 77 g/day. Fluids: 1 ml/Kcal, or as per MD. Nutrition Intervention Change Diet Order: Modify current diet to Cardiac /Consistent Carbohydrates- Renal- Diet, advance as tolerated. Goal #1 Help reach and maintain acceptable chemistry lab values during LOS. Goal #2 Adjust the dietary intervention to better serve Pt's energy/protein needs and clinical conditions during LOS . Follow-Up By: 12/20/21 Additional Comments Nutrition education will be provided at F/U, if feasible. Continue monitoring food tolerance, %PO intake of meals , and BM.
--- NOTE | 2021-12-13 17:51 | Electrocardiograph Report ---
[facility] Test Date: 2021-12-13 Test Time: 08:34:15 Pat Name: WILFRID DESIR Department: Room: A354 2 Gender: M [facility] Director: JALIL : 1960 Requested By: JOSE NULL Order Number: [id number] Reading MD: Liang Dobson Measurements Intervals [place] Rate: 113 P: 56 NV: 137 QRS: -90 QRSD: 155 T: -1 QT: 391 QTc: 537 Interpretive Statements Sinus tachycardia Probable left atrial enlargement RBBB and LAFB Compared to ECG 09/01/2021 22:20:44 No significant change Electronically Signed On 12-13-2021 17:51:28 EDT by Liang Dobson
[2021-12-14] MEDS: INSULIN LISPRO 100 UNIT/ML SUB-Q SCH ×6 (05:48→21:22)
[2021-12-14] MEDS: HEPARIN 5,000 UNIT/1 ML VIAL SUB-Q SCH ×3 (06:38→21:22)
[2021-12-14 06:57] LABS: Basophils # (Auto) 0.1 K/mm3 (0.0-0.1); Basophils % (Auto) 0.8 % (0.0-1.8); Eosinophils # (Auto) 0.1 K/mm3 (0.0-0.4); Eosinophils % (Auto) 0.4 % (0.0-4.3); Hematocrit 37.3 % (35.5-45.6); Hemoglobin 12.1 gm/dl (11.8-15.2); Lymphocytes # (Auto) 1.2 K/mm3 (1.2-5.4); Lymphocytes % (Auto) 9.2 % (13.4-35.0); Mean Corpuscular HGB Conc 33 % (32-34); Mean Corpuscular Volume 84 fl (84-94); Monocytes # (Auto) 0.8 K/mm3 (0.0-0.8); Monocytes % (Auto) 6.3 % (0.0-7.3); Platelet Count 230 K/mm3 (140-440); Red Blood Count 4.44 M/mm3 (3.65-5.03); Red Cell Distribution Width 15.4 % (13.2-15.2)
[2021-12-14 07:14] LABS: Calcium 8.7 mg/dL (8.4-10.2)
[2021-12-14] MEDS ORDERED: POTASSIUM CHLORIDE ER 20 MEQ TAB PO NR (08:30)
[2021-12-14] MEDS: cefTRIAXone/NS 2 GM/100 ML 2 GM/100 ML BAG IV SCH (09:03)
[2021-12-14] MEDS: AZITHROMYCIN 250 MG TAB PO SCH (09:03)
--- NOTE | 2021-12-14 10:46 | Progress Note ---
Assessment and Plan - Patient Problems (1) RODNEY (acute kidney injury) Current Visit: No Status: Acute Plan to address problem: Possibly prerenal in etiology with likely underlying chronic kidney disease at baseline. Renal ultrasound showing evidence of likely underlying chronic kidney disease but otherwise no other acute abnormalities. We will follow-up closely. We will also add urine analysis along with urine electrolytes for further evaluation. Renal function is showing improvement at this time with appropriate fluid hydration. (2) Altered mental status Current Visit: Yes Status: Acute Plan to address problem: Possibly in the setting of pneumonia process. We will continue to monitor. More awake and alert this morning. (3) Pneumonia Current Visit: Yes Status: Acute Plan to address problem: Please ensure that antibiotics are dosed appropriately for renal function. ID recommendations appreciated. (4) Suspected COVID-19 virus infection Current Visit: Yes Status: Acute Plan to address problem: COVID-19 testing completed with PCR negative. (5) Diabetes Current Visit: Yes Status: Chronic Plan to address problem: Diabetes management per primary attending. (6) HTN (hypertension) Current Visit: No Status: Chronic Qualifiers: Hypertension type: primary hypertension Qualified Code(s): I10 - Essential (primary) hypertension Plan to address problem: Monitor blood pressures under current regimen. Subjective Date of service: 12/14/21 Interval history: No acute issues overnight. Renal function is showing improvement this morning. Objective - Vital Signs Vital signs: Vital Signs - 12hr 12/13/21 12/13/21 12/13/21 22:51 22:59 23:01 Temperature 98.1 F Pulse Rate 61 63 Respiratory 13 14 Rate Blood Pressure 138/76 138/76 O2 Sat by Pulse 100 100 Oximetry 12/13/21 12/13/21 12/13/21 23:11 23:21 23:31 Temperature Pulse Rate 62 67 58 L Respiratory 13 12 14 Rate Blood Pressure 138/76 138/76 138/76 O2 Sat by Pulse 100 100 100 Oximetry 12/13/21 12/13/21 12/14/21 23:41 23:51 00:01 Temperature Pulse Rate 61 75 60 Respiratory 15 12 16 Rate Blood Pressure 138/76 138/76 142/93 O2 Sat by Pulse 100 100 100 Oximetry 12/14/21 12/14/21 12/14/21 00:11 00:21 00:31 Temperature Pulse Rate 66 67 68 Respiratory 14 15 12 Rate Blood Pressure 142/93 142/93 142/93 O2 Sat by Pulse 100 100 100 Oximetry 12/14/21 12/14/21 12/14/21 00:41 00:51 01:01 Temperature Pulse Rate 108 H 76 77 Respiratory 13 15 15 Rate Blood Pressure 142/93 142/93 142/93 O2 Sat by Pulse 100 100 100 Oximetry 12/14/21 12/14/21 12/14/21 01:11 01:21 01:31 Temperature Pulse Rate 77 77 65 Respiratory 14 14 14 Rate Blood Pressure 142/93 142/93 142/93 O2 Sat by Pulse 100 100 100 Oximetry 12/14/21 12/14/21 12/14/21 01:41 01:51 02:01 Temperature Pulse Rate 79 86 81 Respiratory 13 21 14 Rate Blood Pressure 142/93 142/93 142/93 O2 Sat by Pulse 100 100 100 Oximetry 12/14/21 12/14/21 12/14/21 02:11 02:21 02:31 Temperature Pulse Rate 75 82 65 Respiratory 17 22 12 Rate Blood Pressure 142/93 142/93 142/93 O2 Sat by Pulse 100 100 100 Oximetry 12/14/21 12/14/21 12/14/21 02:41 02:50 03:00 Temperature Pulse Rate 59 L 60 59 L Respiratory 12 12 11 L Rate Blood Pressure 142/93 142/93 142/93 O2 Sat by Pulse 100 100 100 Oximetry 12/14/21 12/14/21 12/14/21 03:10 03:21 03:31 Temperature Pulse Rate 73 59 L 72 Respiratory 17 12 13 Rate Blood Pressure 142/93 142/93 142/93 O2 Sat by Pulse 98 99 100 Oximetry 12/14/21 12/14/21 12/14/21 03:41 03:51 04:01 Temperature Pulse Rate 72 66 59 L Respiratory 13 12 12 Rate Blood Pressure 142/93 142/93 142/93 O2 Sat by Pulse 100 100 100 Oximetry 12/14/21 12/14/21 12/14/21 04:11 04:21 04:31 Temperature Pulse Rate 65 66 70 Respiratory 13 12 12 Rate Blood Pressure 142/93 142/93 142/93 O2 Sat by Pulse 100 100 100 Oximetry 12/14/21 12/14/21 12/14/21 04:41 04:51 05:01 Temperature Pulse Rate 66 68 73 Respiratory 13 13 17 Rate Blood Pressure 142/93 142/93 125/73 O2 Sat by Pulse 100 100 100 Oximetry 12/14/21 12/14/21 12/14/21 05:10 05:20 05:30 Temperature Pulse Rate 70 80 62 Respiratory 13 11 L 13 Rate Blood Pressure 142/93 125/73 125/73 O2 Sat by Pulse 100 100 100 Oximetry 12/14/21 12/14/21 12/14/21 05:40 05:59 06:00 Temperature 98.5 F Pulse Rate 64 99 H 78 Respiratory 13 20 18 Rate Blood Pressure 125/73 144/83 125/73 O2 Sat by Pulse 100 93 100 Oximetry 12/14/21 12/14/21 12/14/21 06:15 06:20 06:21 Temperature Pulse Rate 82 68 Respiratory 10 L 17 12 Rate Blood Pressure 142/93 142/93 O2 Sat by Pulse 100 100 100 Oximetry 12/14/21 12/14/21 12/14/21 06:31 06:41 06:51 Temperature Pulse Rate 78 60 64 Respiratory 11 L 10 L 13 Rate Blood Pressure 125/73 125/73 125/73 O2 Sat by Pulse 100 100 100 Oximetry 12/14/21 12/14/21 12/14/21 07:01 07:11 07:21 Temperature Pulse Rate 62 63 88 Respiratory 12 10 L 14 Rate Blood Pressure 125/73 125/73 125/73 O2 Sat by Pulse 100 100 100 Oximetry - General Appearance General appearance: appears stated age EENT: ATNC Neck: no JVD Respiratory: Present: Clear to Ascultation, Normal Exam Cardiology: regular Gastrointestinal: normal Integumentary: no rash Neurologic: no focal deficit Musculoskeletal: deferred Psychiatric: cooperative - Lab 12/14/21 06:42 12/14/21 06:42 Most recent lab results Calcium 8.7 mg/dL (8.4-10.2) 12/14/21 06:42 - Allied health notes Allied health notes reviewed: nursing Medications & Allergies - Medications Allergies/Adverse Reactions: Allergies No Known Allergies Allergy (Verified 12/12/21 15:31) Home Medications: Home Medications Medication Instructions Recorded Confirmed Last Taken Type Ascorbic Acid 500 mg PO DAILY 01/07/14 12/13/21 Unknown History Zinc Sulfate 220 mg PO DAILY 01/07/14 12/13/21 Unknown History Clopidogrel Bisulfate [Plavix] 75 mg PO DAILY #30 tablet 01/16/14 12/13/21 Unknown Rx PARoxetine [Paxil] 20 mg PO DAILY #30 tablet 01/16/14 12/13/21 Unknown Rx Calcium Carbonate [Calcium 650 mg PO BID 01/06/21 12/13/21 Unknown History Carbonate 650MG TAB] Ergocalciferol [Vitamin D2] 1 cap PO QWEEK 01/06/21 12/13/21 Unknown History Losartan [Cozaar] 100 mg PO QDAY 01/06/21 12/13/21 Unknown History risperiDONE [RisperDAL] 0.5 mg PO HS 01/06/21 12/13/21 Unknown History ALPRAZolam [Xanax TAB] 0.25 mg PO BID PRN #7 tablet 08/08/21 12/13/21 Unknown Rx AtorvaSTATin [Lipitor] 40 mg PO QHS #30 tablet 08/08/21 12/13/21 Unknown Rx Chlorhexidine Mouthwash [Peridex] 15 ml MM TID #1 bottle 08/08/21 12/13/21 Unknown Rx Docusate Sodium [Colace CAP] 100 mg PO BID #20 cap 08/08/21 12/13/21 Unknown Rx Gabapentin 600 mg PO QHS #30 cap 08/08/21 12/13/21 Unknown Rx Hydralazine HCl 50 mg PO BID #60 08/08/21 12/13/21 Unknown Rx Metoprolol [Lopressor TAB] 12.5 mg PO Q12H #30 tablet 08/08/21 12/13/21 Unknown Rx amLODIPine 5 mg PO DAILY #30 tablet 08/08/21 12/13/21 Unknown Rx bisacodyL [Dulcolax tab] 10 mg PO DAILY PRN #14 tab 08/08/21 12/13/21 Unknown Rx cefUROXime [Ceftin] 2 tab PO Q12H 3 Days #12 08/08/21 12/13/21 Unknown Rx Insulin Glargine,Hum.rec.anlog 16 unit SQ HS #2 09/03/21 12/13/21 Unknown Rx [Basaglar Kwikpen U-100] Ondansetron [Zofran Odt] 4 mg PO Q6HR PRN #20 tab.rapdis 11/14/21 12/13/21 Unknown Rx Pantoprazole [Protonix TAB] 40 mg PO BID #30 tablet 11/14/21 12/13/21 Unknown Rx Active Medications: Generic Name Dose Route Start Last Admin Trade Name Freq PRN Reason Stop Dose Admin Acetaminophen 650 mg 12/12/21 22:50 Acetaminophen 325 Mg Tab PO Q4H PRN Pain MILD(1-3)/Fever >100.5/VALENTINE Azithromycin 500 mg 12/13/21 10:00 12/14/21 09:03 Azithromycin 250 Mg Tab PO 500 mg QDAY VISHAL Administration Protocol Chlordiazepoxide HCl 50 mg 12/13/21 07:31 12/13/21 22:43 Chlordiazepoxide 25 Mg Cap PO 50 mg Q1HR PRN Administration CIWA-Ar 8-15 Dextrose 50 ml 12/12/21 22:50 Dextrose 50% In Water (25gm) 50 Ml Syringe IV Q30MIN PRN Hypoglycemia Protocol Heparin Sodium (Porcine) 5,000 unit 12/13/21 06:00 12/14/21 06:38 Heparin 5,000 Unit/1 Ml Vial SUB-Q 5,000 unit Q8HR VISHAL Administration Ceftriaxone Sodium 2 gm in 100 mls @ 200 mls/hr 12/13/21 10:00 12/14/21 09:03 Rocephin/Ns 2 Gm/100 Ml IV 200 mls/hr Q24H VISHAL Administration Protocol Insulin Human Lispro 0 unit 12/13/21 07:30 12/14/21 08:10 Insulin Lispro 100 Unit/Ml SUB-Q Not Given ACHS VISHAL Protocol Lorazepam 4 mg 12/13/21 07:31 Lorazepam 2 Mg/Ml Vial IV Q15MIN PRN CIWA-Ar >25 Lorazepam 4 mg 12/13/21 07:31 Lorazepam 2 Mg Tab PO Q1HR PRN CIWA-Ar 16-25 Morphine Sulfate 2 mg 12/12/21 22:50 12/13/21 15:35 Morphine 2 Mg/1 Ml Inj IV 2 mg Q4H PRN Administration Pain, Moderate (4-6) Morphine Sulfate 4 mg 12/12/21 22:50 12/13/21 22:43 Morphine 4 Mg/1 Ml Inj IV 4 mg Q4H PRN Administration Pain , Severe (7-10) Ondansetron HCl 4 mg 12/12/21 22:50 Ondansetron 4 Mg/2 Ml Inj IV Q8H PRN Nausea And Vomiting Potassium Chloride 40 meq 12/14/21 08:30 12/14/21 09:04 Potassium Chloride Er 20 Meq Tab PO 12/14/21 12:00 40 meq ONCE@0830 NR Administration Sodium Chloride 10 ml 12/13/21 10:00 12/14/21 09:04 Sodium Chloride 0.9% 10 Ml Flush Syringe IV 10 ml BID VISHAL Administration Sodium Chloride 10 ml 12/12/21 22:50 Sodium Chloride 0.9% 10 Ml Flush Syringe IV PRN PRN LINE FLUSH
--- NOTE | 2021-12-14 10:47 | Progress Note ---
Assessment and Plan Cultures: 12/13/2021 blood culture: no growth 12/13/2021 COVID-19 PCR: Negative A/P: 61-year-old male with diabetes, hypertension, COPD, hyperlipidemia, bilateral BKA was admitted to the hospital yesterday with nausea, vomiting. Also feeling very weak: #Bilateral pneumonitis: ? aspiration, COVID-19 negative. Procalcitonin 0.18 #AMS/acute encephalopathy #RODNEY: Renally adjust antibiotics, monitor creatinine, improving. . Recs: Completed 3 days of azithromycin today Ceftriaxone day 3 of 5. If discharged, switch to p.o. Ceftin 500 mg twice daily to complete the course Will sign off. Please call with questions. Aurelia Lambert MD, FACP, [facility] ([facility] O: [phone] F: [phone] C: [phone] Subjective Date of service: 12/14/21 Interval history: No fever. Remains on room air. No new complaints. Objective - Exam Narrative Exam: Physical Exam: Constitutional: Alert, cooperative. No acute distress Head, Ears, Nose: Normocephalic, atraumatic. External ears, nose normal Eyes: Conjunctivae/corneas clear. No icterus. No ptosis. Neck: Supple, no meningeal signs Cardiovascular: S1, S2 + Respiratory: AE fair bilaterally GI: Soft, non-tender; bowel sounds normal. No peritoneal signs Musculoskeletal: Bilateral BKA Skin: No rash or abscess Hem/Lymphatic: No palpable cervical or supraclavicular nodes. No lymphangitis Psych: Calm, no agitation Neurological: Awake, alert - Constitutional Vitals: Vital Signs Temp Pulse Resp BP Pulse Ox 98.5 F 88 14 125/73 100 12/14/21 05:59 12/14/21 07:21 12/14/21 07:21 12/14/21 07:21 12/14/21 07:21 Temperature -Last 24 Hours Temperature 98.5 F Temperature 98.1 F Temperature 98.1 F - Labs CBC & Chem 7: 12/14/21 06:42 12/14/21 06:42 Labs: Abnormal lab results 12/13/21 12/14/21 12/14/21 Range/Units 22:42 06:42 06:42 WBC 13.2 H (4.5-11.0) K/mm3 MCH 27 L (28-32) pg RDW 15.4 H (13.2-15.2) % Lymph % (Auto) 9.2 L (13.4-35.0) % Seg Neutrophils % 83.3 H (40.0-70.0) % Seg Neutrophils # 11.0 H (1.8-7.7) K/mm3 Sodium 149 H (137-145) mmol/L Potassium 3.1 L (3.6-5.0) mmol/L Chloride 109.4 H (98-107) mmol/L BUN 32 H (9-20) mg/dL Creatinine 1.9 H (0.8-1.3) mg/dL POC Glucose 107 H (70-105) mg/dL
--- NOTE | 2021-12-14 18:17 | Progress Note ---
Assessment and Plan Assessment and plan: 61-year-old female with known history of hypertension, diabetes mellitus, COPD and hyperlipidemia presents to the emergency room today with complaints of nausea and vomiting. Patient is a very poor historian and most of the history was obtained from the ER physician. Family was said to have called EMS because patient was feeling very weak. He was also said to have vomited upon arrival in the emergency room. Work-up in the emergency room/ lab reveals leukocytosis of 13.9. BUN of 30 and creatinine of 2.4. CT of the abdomen and pelvis shows mild patchy areas of groundglass opacity in both lower lungs suggesting multifocal pneumonia. Chest x-ray shows no acute findings. CT scan of the head shows no acute intracranial process. #Acute hypoxic respiratory failureresolved #Possible aspiration pneumonia versus pneumonitis #Multifocal pneumonia - etiology: Likely aspiration (possibly alcoholic consumption) - baseline oxygen requirements: Room air - supplemental oxygen: 3 L nasal cannula - Continue protocol: continue pulse oximetry, wean oxygen as tolerated, ordered incentive spirometry and educated patient on how to use it and its importance. -Continue azithromycin 500 mg daily and Rocephin 1 g every 24 hours. Unremarkable coronavirus PCR. - continue to monitor #Acute metabolic encephalopathy Unremarkable CT head noncontrast Pending blood cultures, urinalysis +/- urine culture. Infectious disease consulted; appreciate recs. -Discontinued narcotics 12/14 #RODNEY Creatinine 2.3 (baseline unknown) -Renal ultrasound shows chronic kidney disease -Creatinine improving, 1.9 today, documented urine output is low but improving Renally dose meds and avoid nephrotoxic drugs. Nephrology consulted; appreciate recs Continue to monitor #Alcohol dependence -Blood alcohol level 0. -Counseled patient on the importance of ETOH cessation. Assess patient's current ETOH consumption. Assisted with trying to arrange resources for patient to adequately work towards ETOH cessation. Patient expresses understanding. Starting [facility]WA protocol #Advanced care planning -Disease education conducted, care plan discussed, diagnoses discussed, prognosis discussed, and patient acknowledges understanding with care plan History Interval history: Patient is awake but sleepy/sluggish, able to answer simple questions, patient reports that she is doing better, not in acute respiratory distress, RODNEY improving with hydration, creatinine today 1.9. Sodium 149. K3.1, replenished. Nephrology following. Hospitalist Physical - Constitutional Vitals: Temp Pulse Resp BP Pulse Ox 97.6 F 98 H 22 185/110 98 12/14/21 11:42 12/14/21 11:42 12/14/21 11:42 12/14/21 11:42 12/14/21 11:42 General appearance: Present: no acute distress, well-nourished, other (Sleepy/sluggish) - EENT Eyes: Present: PERRL, EOM intact ENT: hearing intact, other (Oral mucosa dry) - Neck Neck: Present: supple - Respiratory Respiratory effort: normal Respiratory: bilateral: diminished, negative: rales, rhonchi, wheezing - Cardiovascular Rhythm: regular - Extremities Extremities: No edema Extremity abnormal: other (Bilateral BKA) - Abdominal General gastrointestinal: soft, non-tender, non-distended - Integumentary Integumentary: Absent: rash - Neurologic Neurologic: no focal deficits, other (Sleepy/sluggish) HEART Score - HEART Score Troponin: Troponin T < 0.010 ng/mL (0.00-0.029) 12/12/21 20:57 Results - Labs CBC & Chem 7: 12/14/21 06:42 12/14/21 06:42 Labs: Laboratory Last Values WBC 13.2 K/mm3 (4.5-11.0) H 12/14/21 06:42 RBC 4.44 M/mm3 (3.65-5.03) 12/14/21 06:42 Hgb 12.1 gm/dl (11.8-15.2) 12/14/21 06:42 Hct 37.3 % (35.5-45.6) 12/14/21 06:42 MCV 84 fl (84-94) 12/14/21 06:42 MCH 27 pg (28-32) L 12/14/21 06:42 MCHC 33 % (32-34) 12/14/21 06:42 RDW 15.4 % (13.2-15.2) H 12/14/21 06:42 Plt Count 230 K/mm3 (140-440) 12/14/21 06:42 Lymph % (Auto) 9.2 % (13.4-35.0) L 12/14/21 06:42 [place] % (Auto) 6.3 % (0.0-7.3) 12/14/21 06:42 Eos % (Auto) 0.4 % (0.0-4.3) 12/14/21 06:42 Baso % (Auto) 0.8 % (0.0-1.8) 12/14/21 06:42 Lymph # (Auto) 1.2 K/mm3 (1.2-5.4) 12/14/21 06:42 [place] # (Auto) 0.8 K/mm3 (0.0-0.8) 12/14/21 06:42 Eos # (Auto) 0.1 K/mm3 (0.0-0.4) 12/14/21 06:42 Baso # (Auto) 0.1 K/mm3 (0.0-0.1) 12/14/21 06:42 Seg Neutrophils % 83.3 % (40.0-70.0) H 12/14/21 06:42 Seg Neutrophils # 11.0 K/mm3 (1.8-7.7) H 12/14/21 06:42 Sodium 149 mmol/L (137-145) H 12/14/21 06:42 Potassium 3.1 mmol/L (3.6-5.0) L 12/14/21 06:42 Chloride 109.4 mmol/L (98-107) H 12/14/21 06:42 Carbon Dioxide 24 mmol/L (22-30) 12/14/21 06:42 Anion Gap 19 mmol/L 12/14/21 06:42 BUN 32 mg/dL (9-20) H 12/14/21 06:42 Creatinine 1.9 mg/dL (0.8-1.3) H 12/14/21 06:42 Estimated GFR 44 ml/min 12/14/21 06:42 BUN/Creatinine Ratio 17 % 12/14/21 06:42 Glucose 91 mg/dL (75-100) 12/14/21 06:42 POC Glucose 107 mg/dL (70-105) H 12/13/21 22:42 Calcium 8.7 mg/dL (8.4-10.2) 12/14/21 06:42 Total Bilirubin 0.80 mg/dL (0.1-1.2) 12/12/21 15:54 AST 21 units/L (5-40) 12/12/21 15:54 ALT 15 units/L (7-56) 12/12/21 15:54 Alkaline Phosphatase 161 units/L (35-129) H 12/12/21 15:54 Troponin T < 0.010 ng/mL (0.00-0.029) 12/12/21 20:57 Total Protein 6.7 g/dL (6.3-8.2) 12/12/21 15:54 Albumin 4.2 g/dL (3.9-5) 12/12/21 15:54 Albumin/Globulin Ratio 1.7 % 12/12/21 15:54 Lipase 12 units/L (13-60) L 12/12/21 20:57 Procalcitonin 0.18 ng/mL (<0.15) 12/13/21 10:26 Plasma/Serum Alcohol < 0.01 % (0-0.07) 12/12/21 20:57 Coronavirus (PCR) Negative (Negative) 12/13/21 09:30 Microbiology: Microbiology 12/13/21 00:26 Peripheral/Venous Blood Culture - Preliminary NO GROWTH AFTER 24 HOURS 12/13/21 00:26 Peripheral/Venous Blood Culture - Preliminary NO GROWTH AFTER 24 HOURS [place]/IV: Voiding Method Condom Catheter Active Medications - Current Medications Current Medications: Generic Name Dose Route Start Last Admin Trade Name Freq PRN Reason Stop Dose Admin Acetaminophen 650 mg 12/12/21 22:50 Acetaminophen 325 Mg Tab PO Q4H PRN Pain MILD(1-3)/Fever >100.5/VALENTINE Chlordiazepoxide HCl 50 mg 12/13/21 07:31 12/13/21 22:43 Chlordiazepoxide 25 Mg Cap PO 50 mg Q1HR PRN Administration QUE-Krish 8-15 Dextrose 50 ml 12/12/21 22:50 Dextrose 50% In Water (25gm) 50 Ml Syringe IV Q30MIN PRN Hypoglycemia Protocol Heparin Sodium (Porcine) 5,000 unit 12/13/21 06:00 12/14/21 15:13 Heparin 5,000 Unit/1 Ml Vial SUB-Q 5,000 unit Q8HR VISHAL Administration Ceftriaxone Sodium 2 gm in 100 mls @ 200 mls/hr 12/13/21 10:00 12/14/21 09:03 Rocephin/Ns 2 Gm/100 Ml IV 200 mls/hr Q24H VISHAL Administration Protocol Insulin Human Lispro 0 unit 12/13/21 07:30 12/14/21 17:57 Insulin Lispro 100 Unit/Ml SUB-Q Not Given ACHS [facility] Protocol Lorazepam 4 mg 12/13/21 07:31 Lorazepam 2 Mg/Ml Vial IV Q15MIN PRN CIWA-Ar >25 Lorazepam 4 mg 12/13/21 07:31 Lorazepam 2 Mg Tab PO Q1HR PRN CIWA-Ar 16-25 Ondansetron HCl 4 mg 12/12/21 22:50 Ondansetron 4 Mg/2 Ml Inj IV Q8H PRN Nausea And Vomiting Sodium Chloride 10 ml 12/13/21 10:00 12/14/21 09:04 Sodium Chloride 0.9% 10 Ml Flush Syringe IV 10 ml BID VISHAL Administration Sodium Chloride 10 ml 12/12/21 22:50 Sodium Chloride 0.9% 10 Ml Flush Syringe IV PRN PRN LINE FLUSH Nutrition/Malnutrition Assess - Dietary Evaluation Nutrition/Malnutrition Findings: Nutrition Notes Start: 12/13/21 11:32 Freq: Status: Active Protocol: Document 12/13/21 11:32 TARYN (Rec: 12/13/21 12:08 TARYN [id number]) Nutrition Notes Need for Assessment generated from: MD Order,Education Initial or Follow up Assessment Current Diagnosis Acute Kidney Injury,COPD, Diabetes,Hypertension, Hyperlipidemia Other Pertinent Diagnosis AMS, Pneumonia, Leukocytosis, COVID-19 pui. Current Diet Cardiac/Consistent Carbohydrates -Renal- Diet ( since B 12/13). Labs/Tests 12/13: Cl 19, BUN 32, Crea 2.3 , Glu 191. Pertinent Medications 12/13: Nutritionally unremarkable. 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 Weight Status Appropriate Subjective/Other Information RD consult for nutrition education assessment. No reports available on Pt's PO intake of meals at the time , will assess at F/U. Pt is on Room Air, O2 saturation @ 100%, according to Vital Signs notes. I will recommend Renal modification to Pt's current diet to support Pt's RODNEY condition. Pt complains of nausea and vomiting, according to Physical Assessment History notes. Pt is incontinent, according to Physical Assessment History notes. Pt presents with Bilateral-LE BKA, according to History & Physical notes. Pt still in critical condition , not a candidate for Nutrition Education at the time, will assess feasibility on F/U. Percent of energy/protein needs met: Prescribed Cardiac/Consistent Carbohydrates -Renal- Diet provides for energy/protein needs (1,977 Kcal/86 g) during LOS. Burn Absent Trauma Absent GI Symptoms Nausea,Vomiting Food Allergy No Skin Integrity/Comment Assessment WNL. Minimum of two criteria No Fluid Accumulation N/A Reduced Surgical Dressing Maker Strength N/A (non-severe) Protein-Calorie Malnutrition N\A #1 Nutrition Diagnosis Altered nutrition-related laboratory values Etiology RODNEY. As Evidenced by Signs and Symptoms 12/13: Cl 19, BUN 32, Crea 2.3 , Glu 191. Is patient on ventilator? No Is Patient Ambulatory and/or Out of Bed No REE-([place]-[facility]-confined to bed) 1734.696 Kcal/Kg value to use for calculation 32 Approximate Energy Requirements Using 2032 kcal/Kg Calculation Used for Recommendations Kcal/kg Additional Notes Protein: 0.8-1.2 g/Kg ABW; 51- 77 g/day. Fluids: 1 ml/Kcal, or as per MD. Nutrition Intervention Change Diet Order: Modify current diet to Cardiac /Consistent Carbohydrates- Renal- Diet, advance as tolerated. Goal #1 Help reach and maintain acceptable chemistry lab values during LOS. Goal #2 Adjust the dietary intervention to better serve Pt's energy/protein needs and clinical conditions during LOS . Follow-Up By: 12/20/21 Additional Comments Nutrition education will be provided at F/U, if feasible. Continue monitoring food tolerance, %PO intake of meals , and BM.
[2021-12-15] MEDS: HEPARIN 5,000 UNIT/1 ML VIAL SUB-Q SCH ×3 (05:48→21:08)
[2021-12-15] MEDS: ACETAMINOPHEN 325 MG TAB PO PRN (05:58)
[2021-12-15 06:48] LABS: Basophils % (Auto) 0.3 % (0.0-1.8); Eosinophils # (Auto) 0.1 K/mm3 (0.0-0.4); Eosinophils % (Auto) 0.8 % (0.0-4.3); Hematocrit 36.2 % (35.5-45.6); Hemoglobin 12.2 gm/dl (11.8-15.2); Lymphocytes % (Auto) 18.7 % (13.4-35.0); Mean Corpuscular HGB Conc 34 % (32-34); Mean Corpuscular Volume 84 fl (84-94); Monocytes # (Auto) 0.9 K/mm3 (0.0-0.8); Monocytes % (Auto) 7.9 % (0.0-7.3); Platelet Count 219 K/mm3 (140-440); Red Blood Count 4.32 M/mm3 (3.65-5.03); Red Cell Distribution Width 15.6 % (13.2-15.2)
[2021-12-15 07:04] LABS: Albumin 3.5 g/dL (3.9-5); Calcium 8.4 mg/dL (8.4-10.2)
[2021-12-15] MEDS: INSULIN LISPRO 100 UNIT/ML SUB-Q SCH ×4 (09:04→22:16)
[2021-12-15] MEDS: cefTRIAXone/NS 2 GM/100 ML 2 GM/100 ML BAG IV SCH (09:07)
[2021-12-15] MEDS ORDERED: NON-FORMULARY EACH (Hydralazine Hcl [Hydralazine Hcl] 50 MG Tablet) PO SCH (14:45)
[2021-12-15] MEDS: hydrALAZINE 100 MG TAB PO SCH ×2 (16:25→21:08)
[2021-12-15] MEDS: amLODIPine 5 MG TAB PO SCH (16:25)
[2021-12-15] MEDS: PARoxetine 20 MG TAB PO SCH (16:25)
[2021-12-15] MEDS ORDERED: METOPROLOL TARTRATE 50 MG TAB PO SCH (17:30)
--- NOTE | 2021-12-15 19:46 | Progress Note ---
Assessment and Plan Assessment and plan: 61-year-old female with known history of hypertension, diabetes mellitus, COPD and hyperlipidemia presents to the emergency room today with complaints of nausea and vomiting. Patient is a very poor historian and most of the history was obtained from the ER physician. Family was said to have called EMS because patient was feeling very weak. He was also said to have vomited upon arrival in the emergency room. Work-up in the emergency room/ lab reveals leukocytosis of 13.9. BUN of 30 and creatinine of 2.4. CT of the abdomen and pelvis shows mild patchy areas of groundglass opacity in both lower lungs suggesting multifocal pneumonia. Chest x-ray shows no acute findings. CT scan of the head shows no acute intracranial process. #Acute hypoxic respiratory failureresolved #aspiration pneumonia versus pneumonitis - etiology: Likely aspiration (possibly alcoholic consumption) - baseline oxygen requirements: Room air - supplemental oxygen: 3 L nasal cannula - Continue protocol: continue pulse oximetry, wean oxygen as tolerated, ordered incentive spirometry and educated patient on how to use it and its importance. - azithromycin 500 mg daily and Rocephin 1 g every 24 hours. Unremarkable coronavirus PCR. -No respiratory distress currently, continue to monitor #Acute metabolic encephalopathy, resolved Unremarkable CT head noncontrast Pending blood cultures, urinalysis +/- urine culture. Infectious disease consulted; appreciate recs. -Discontinued narcotics 12/14 #RODNEY Creatinine 2.3 (baseline unknown) -Renal ultrasound shows chronic kidney disease -Creatinine progressively improving, 1.7 today, documented urine output is low but improving Renally dose meds and avoid nephrotoxic drugs. Nephrology consulted; appreciate recs Continue to monitor #Alcohol dependence -Blood alcohol level 0. -Counseled patient on the importance of ETOH cessation. Assess patient's current ETOH consumption. Assisted with trying to arrange resources for patient to adequately work towards ETOH cessation. Patient expresses understanding. Placed on [facility] protocol #Advanced care planning -Disease education conducted, care plan discussed, diagnoses discussed, prognosis discussed, and patient acknowledges understanding with care plan Disposition: Encephalopathy resolved. Currently no respiratory distress. RODNEY progress improving. Possible discharge tomorrow if renal function continues to improve. Discussed with the patient. History Interval history: Patient reports doing progressively better. She is fully alert and oriented currently. Tolerating diet. Patient reports some pain in the left side. Creatinine progress improving 1.7 today. No significant alcohol withdrawal s ymptoms. Remains on [facility] protocol. Hospitalist Physical - Constitutional Vitals: Temp Pulse Resp BP Pulse Ox 98.4 F 93 H 18 119/71 98 12/15/21 17:46 12/15/21 17:46 12/15/21 17:46 12/15/21 17:46 12/15/21 17:46 General appearance: Present: no acute distress, well-nourished - EENT Eyes: Present: PERRL, EOM intact ENT: hearing intact, clear oral mucosa - Neck Neck: Present: supple - Respiratory Respiratory effort: normal Respiratory: bilateral: CTA - Cardiovascular Rhythm: regular - Extremities Extremities: No edema - Abdominal General gastrointestinal: soft, non-tender, normal bowel sounds, other (No CVA tenderness.) - Psychiatric Psychiatric: appropriate mood/affect - Neurologic Neurologic: no focal deficits, other (Fully alert and oriented.) HEART Score - HEART Score Troponin: Troponin T < 0.010 ng/mL (0.00-0.029) 12/12/21 20:57 Results - Labs CBC & Chem 7: 12/15/21 05:44 12/15/21 05:44 Labs: Laboratory Last Values WBC 10.8 K/mm3 (4.5-11.0) 12/15/21 05:44 RBC 4.32 M/mm3 (3.65-5.03) 12/15/21 05:44 Hgb 12.2 gm/dl (11.8-15.2) 12/15/21 05:44 Hct 36.2 % (35.5-45.6) 12/15/21 05:44 MCV 84 fl (84-94) 12/15/21 05:44 MCH 28 pg (28-32) 12/15/21 05:44 MCHC 34 % (32-34) 12/15/21 05:44 RDW 15.6 % (13.2-15.2) H 12/15/21 05:44 Plt Count 219 K/mm3 (140-440) 12/15/21 05:44 Lymph % (Auto) 18.7 % (13.4-35.0) 12/15/21 05:44 [place] % (Auto) 7.9 % (0.0-7.3) H 12/15/21 05:44 Eos % (Auto) 0.8 % (0.0-4.3) 12/15/21 05:44 Baso % (Auto) 0.3 % (0.0-1.8) 12/15/21 05:44 Lymph # (Auto) 2.0 K/mm3 (1.2-5.4) 12/15/21 05:44 [place] # (Auto) 0.9 K/mm3 (0.0-0.8) H 12/15/21 05:44 Eos # (Auto) 0.1 K/mm3 (0.0-0.4) 12/15/21 05:44 Baso # (Auto) 0.0 K/mm3 (0.0-0.1) 12/15/21 05:44 Seg Neutrophils % 72.3 % (40.0-70.0) H 12/15/21 05:44 Seg Neutrophils # 7.8 K/mm3 (1.8-7.7) H 12/15/21 05:44 Sodium 141 mmol/L (137-145) D 12/15/21 05:44 Potassium 3.7 mmol/L (3.6-5.0) 12/15/21 05:44 Chloride 104.3 mmol/L (98-107) 12/15/21 05:44 Carbon Dioxide 24 mmol/L (22-30) 12/15/21 05:44 Anion Gap 16 mmol/L 12/15/21 05:44 BUN 25 mg/dL (9-20) H 12/15/21 05:44 Creatinine 1.7 mg/dL (0.8-1.3) H 12/15/21 05:44 Estimated GFR 50 ml/min 12/15/21 05:44 BUN/Creatinine Ratio 15 % 12/15/21 05:44 Glucose 141 mg/dL (75-100) H 12/15/21 05:44 POC Glucose 282 mg/dL (70-105) H 12/15/21 12:12 Calcium 8.4 mg/dL (8.4-10.2) 12/15/21 05:44 Total Bilirubin 0.30 mg/dL (0.1-1.2) 12/15/21 05:44 AST 21 units/L (5-40) 12/15/21 05:44 ALT 17 units/L (7-56) 12/15/21 05:44 Alkaline Phosphatase 116 units/L (35-129) 12/15/21 05:44 Troponin T < 0.010 ng/mL (0.00-0.029) 12/12/21 20:57 Total Protein 5.4 g/dL (6.3-8.2) L 12/15/21 05:44 Albumin 3.5 g/dL (3.9-5) L 12/15/21 05:44 Albumin/Globulin Ratio 1.8 % 12/15/21 05:44 Lipase 12 units/L (13-60) L 12/12/21 20:57 Procalcitonin 0.18 ng/mL (<0.15) 12/13/21 10:26 Plasma/Serum Alcohol < 0.01 % (0-0.07) 12/12/21 20:57 Coronavirus (PCR) Negative (Negative) 12/13/21 09:30 Microbiology: Microbiology 12/13/21 00:26 Peripheral/Venous Blood Culture - Preliminary NO GROWTH AFTER 48 HOURS 12/13/21 00:26 Peripheral/Venous Blood Culture - Preliminary NO GROWTH AFTER 48 HOURS [place]/IV: Voiding Method Condom Catheter Active Medications - Current Medications Current Medications: Generic Name Dose Route Start Last Admin Trade Name Freq PRN Reason Stop Dose Admin Acetaminophen 650 mg 12/12/21 22:50 12/15/21 05:58 Acetaminophen 325 Mg Tab PO 650 mg Q4H PRN Administration Pain MILD(1-3)/Fever >100.5/VALENTINE Amlodipine Besylate 10 mg 12/15/21 15:00 12/15/21 16:25 Amlodipine 5 Mg Tab PO 10 mg DAILY VISHAL Administration Atorvastatin Calcium 40 mg 12/15/21 22:00 Atorvastatin 40 Mg Tab PO QHS [facility] Chlordiazepoxide HCl 50 mg 12/13/21 07:31 12/13/21 22:43 Chlordiazepoxide 25 Mg Cap PO 50 mg Q1HR PRN Administration QUE-Ar 8-15 Dextrose 50 ml 12/12/21 22:50 12/14/21 21:22 Dextrose 50% In Water (25gm) 50 Ml Syringe IV 50 ml Q30MIN PRN Administration Hypoglycemia Protocol Gabapentin 600 mg 12/15/21 22:00 Gabapentin 300 Mg Cap PO QHS [facility] Heparin Sodium (Porcine) 5,000 unit 12/13/21 06:00 12/15/21 15:17 Heparin 5,000 Unit/1 Ml Vial SUB-Q 5,000 unit Q8HR VISHAL Administration Hydralazine HCl 100 mg 12/15/21 16:00 12/15/21 16:25 Hydralazine 100 Mg Tab PO 100 mg BID VISHAL Administration Ceftriaxone Sodium 2 gm in 100 mls @ 200 mls/hr 12/13/21 10:00 12/15/21 09:07 Rocephin/Ns 2 Gm/100 Ml IV 200 mls/hr Q24H VISHAL Administration Protocol Insulin Human Lispro 0 unit 12/13/21 07:30 12/15/21 18:24 Insulin Lispro 100 Unit/Ml SUB-Q 3 unit ACHS VISHAL Administration Protocol Lorazepam 4 mg 12/13/21 07:31 Lorazepam 2 Mg/Ml Vial IV Q15MIN PRN CIWA-Ar >25 Lorazepam 4 mg 12/13/21 07:31 Lorazepam 2 Mg Tab PO Q1HR PRN CIWA-Ar 16-25 Ondansetron HCl 4 mg 12/12/21 22:50 Ondansetron 4 Mg/2 Ml Inj IV Q8H PRN Nausea And Vomiting Paroxetine HCl 20 mg 12/15/21 15:00 12/15/21 16:25 Paroxetine 20 Mg Tab PO 20 mg DAILY VISHAL Administration Sodium Chloride 10 ml 12/13/21 10:00 12/15/21 09:07 Sodium Chloride 0.9% 10 Ml Flush Syringe IV 10 ml BID VISHAL Administration Sodium Chloride 10 ml 12/12/21 22:50 Sodium Chloride 0.9% 10 Ml Flush Syringe IV PRN PRN LINE FLUSH Nutrition/Malnutrition Assess - Dietary Evaluation Nutrition/Malnutrition Findings: Nutrition Notes Start: 12/13/21 11:3 2 Freq: Status: Active Protocol: Document 12/13/21 11:32 TARYN (Rec: 12/13/21 12:08 TARYN [id number]) Nutrition Notes Need for Assessment generated from: MD Order,Education Initial or Follow up Assessment Current Diagnosis Acute Kidney Injury,COPD, Diabetes,Hypertension, Hyperlipidemia Other Pertinent Diagnosis AMS, Pneumonia, Leukocytosis, COVID-19 pui. Current Diet Cardiac/Consistent Carbohydrates -Renal- Diet ( since B 12/13). Labs/Tests 12/13: Cl 19, BUN 32, Crea 2.3 , Glu 191. Pertinent Medications 12/13: Nutritionally unremarkable. 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 No reports available on Pt's PO intake of meals at the time , will assess at F/U. Pt is on Room Air, O2 saturation @ 100%, according to Vital Signs notes. I will recommend Renal modification to Pt's current diet to support Pt's RODNEY condition. Pt complains of nausea and vomiting, according to Physical Assessment History notes. Pt is incontinent, according to Physical Assessment History notes. Pt presents with Bilateral-LE BKA, according to History & Physical notes. Pt still in critical condition , not a candidate for Nutrition Education at the time, will assess feasibility on F/U. Percent of energy/protein needs met: Prescribed Cardiac/Consistent Carbohydrates -Renal- Diet provides for energy/protein needs (1,977 Kcal/86 g) during LOS. Burn Absent Trauma Absent GI Symptoms Nausea,Vomiting Food Allergy No Skin Integrity/Comment Assessment WNL. 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 As Evidenced by Signs and Symptoms 12/13: Cl 19, BUN 32, Crea 2.3 , Glu 191. Is patient on ventilator? No Is Patient Ambulatory and/or Out of Bed No REE-([facility]-confined to bed) 1734.696 Kcal/Kg value to use for calculation 32 Approximate Energy Requirements Using 2032 kcal/Kg Calculation Used for Recommendations Kcal/kg Additional Notes Protein: 0.8-1.2 g/Kg ABW; 51- 77 g/day. Fluids: 1 ml/Kcal, or as per MD. Nutrition Intervention Change Diet Order: Modify current diet to Cardiac /Consistent Carbohydrates- Renal- Diet, advance as tolerated. Goal #1 Help reach and maintain acceptable chemistry lab values during LOS. Goal #2 Adjust the dietary intervention to better serve Pt's energy/protein needs and clinical conditions during LOS . Follow-Up By: 12/20/21 Additional Comments Nutrition education will be provided at F/U, if feasible. Continue monitoring food tolerance, %PO intake of meals , and BM.
[2021-12-15] MEDS: GABAPENTIN 300 MG CAP PO SCH (21:08)
[2021-12-16] MEDS: HEPARIN 5,000 UNIT/1 ML VIAL SUB-Q SCH ×3 (05:51→21:35)
[2021-12-16] MEDS: INSULIN LISPRO 100 UNIT/ML SUB-Q SCH ×4 (08:27→21:35)
--- NOTE | 2021-12-16 09:17 | Progress Note ---
Assessment and Plan - Patient Problems (1) RODNEY (acute kidney injury) Current Visit: No Status: Acute Plan to address problem: Possibly prerenal in etiology with likely underlying chronic kidney disease at baseline. Renal ultrasound showing evidence of likely underlying chronic kidney disease but otherwise no other acute abnormalities. We will follow-up closely. Urine analysis reviewed. Renal function is showing improvement at this time with appropriate fluid hydration. Likely his renal function is at baseline (2) Altered mental status Current Visit: Yes Status: Acute Plan to address problem: Possibly in the setting of pneumonia process. We will continue to monitor. More awake and alert this morning. (3) Pneumonia Current Visit: Yes Status: Acute Plan to address problem: Please ensure that antibiotics are dosed appropriately for renal function. ID recommendations appreciated. (4) Diabetes Current Visit: Yes Status: Chronic Plan to address problem: Diabetes management per primary attending. (5) HTN (hypertension) Current Visit: No Status: Chronic Qualifiers: Hypertension type: primary hypertension Qualified Code(s): I10 - Essential (primary) hypertension Plan to address problem: Monitor blood pressures under current regimen. Subjective Date of service: 12/16/21 Interval history: No acute changes overnight from kidney standpoint. Renal function remained stable. Objective - Vital Signs Vital signs: Vital Signs - 12hr 12/15/21 12/16/21 22:00 04:17 Temperature 97.4 F L Pulse Rate 85 Respiratory 18 Rate Respiratory 18 Rate [Left Leg] Blood Pressure 152/84 O2 Sat by Pulse 98 100 Oximetry - General Appearance General appearance: well-developed, appears stated age EENT: ATNC Neck: no JVD Respiratory: Present: Clear to Ascultation, Normal Exam Cardiology: regular Gastrointestinal: normal Integumentary: no rash Neurologic: no focal deficit Musculoskeletal: deferred Psychiatric: cooperative - Lab 12/15/21 05:44 12/15/21 05:44 Most recent lab results Calcium 8.4 mg/dL (8.4-10.2) 12/15/21 05:44 - Allied health notes Allied health notes reviewed: nursing Medications & Allergies - Medications Allergies/Adverse Reactions: Allergies No Known Allergies Allergy (Verified 12/12/21 15:31) Home Medications: Home Medications Medication Instructions Recorded Confirmed Last Taken Type Calcium Carbonate [Calcium 650 mg PO BID 01/06/21 12/13/21 Unknown History Carbonate 650MG TAB] Ergocalciferol [Vitamin D2] 1 cap PO QWEEK 01/06/21 12/13/21 Unknown History Losartan [Cozaar] 100 mg PO QDAY 01/06/21 12/13/21 Unknown History AtorvaSTATin [Lipitor] 40 mg PO QHS #30 tablet 08/08/21 12/13/21 Unknown Rx Chlorhexidine Mouthwash [Peridex] 15 ml MM TID #1 bottle 08/08/21 12/13/21 Unknown Rx Gabapentin 600 mg PO QHS #30 cap 08/08/21 12/13/21 Unknown Rx Acetaminophen [Non-Aspirin Extra 500 mg PO Q8H PRN 12/15/21 12/15/21 Unknown History Strength] Gabapentin 300 mg PO QAM 12/15/21 12/15/21 Unknown History Hydralazine HCl 100 mg PO BID 12/15/21 12/15/21 Unknown History Insulin Glargine,Hum.rec.anlog 20 unit SQ HS 12/15/21 12/15/21 Unknown History [Basaglar Kwcarolynpen U-100] Pantoprazole [Protonix TAB] 40 mg PO QDAY 12/15/21 12/15/21 Unknown History glipiZIDE [Glucotrol] 10 mg PO QDAY 12/15/21 12/15/21 Unknown History Active Medications: Generic Name Dose Route Start Last Admin Trade Name Freq PRN Reason Stop Dose Admin Acetaminophen 650 mg 12/12/21 22:50 12/15/21 05:58 Acetaminophen 325 Mg Tab PO 650 mg Q4H PRN Administration Pain MILD(1-3)/Fever >100.5/VALENTINE Amlodipine Besylate 10 mg 12/15/21 15:00 12/15/21 16:25 Amlodipine 5 Mg Tab PO 10 mg DAILY VISHAL Administration Atorvastatin Calcium 40 mg 12/15/21 22:00 12/15/21 21:08 Atorvastatin 40 Mg Tab PO 40 mg QHS VISHAL Administration Chlordiazepoxide HCl 50 mg 12/13/21 07:31 12/13/21 22:43 Chlordiazepoxide 25 Mg Cap PO 50 mg Q1HR PRN Administration QUE-Krish 8-15 Dextrose 50 ml 12/12/21 22:50 12/14/21 21:22 Dextrose 50% In Water (25gm) 50 Ml Syringe IV 50 ml Q30MIN PRN Administration Hypoglycemia Protocol Gabapentin 600 mg 12/15/21 22:00 12/15/21 21:08 Gabapentin 300 Mg Cap PO 600 mg QHS VISHAL Administration Heparin Sodium (Porcine) 5,000 unit 12/13/21 06:00 12/16/21 05:51 Heparin 5,000 Unit/1 Ml Vial SUB-Q 5,000 unit Q8HR VISHAL Administration Hydralazine HCl 100 mg 12/15/21 16:00 12/15/21 21:08 Hydralazine 100 Mg Tab PO 100 mg BID VISHAL Administration Ceftriaxone Sodium 2 gm in 100 mls @ 200 mls/hr 12/13/21 10:00 12/15/21 22:16 Rocephin/Ns 2 Gm/100 Ml IV 12/16/21 11:00 Infused Q24H VISHAL Infusion Protocol Insulin Human Lispro 0 unit 12/13/21 07:30 12/15/21 22:16 Insulin Lispro 100 Unit/Ml SUB-Q 6 unit ACHS VISHAL Administration Protocol Lorazepam 4 mg 12/13/21 07:31 Lorazepam 2 Mg/Ml Vial IV Q15MIN PRN CIWA-Ar >25 Lorazepam 4 mg 12/13/21 07:31 Lorazepam 2 Mg Tab PO Q1HR PRN CIWA-Ar 16-25 Ondansetron HCl 4 mg 12/12/21 22:50 Ondansetron 4 Mg/2 Ml Inj IV Q8H PRN Nausea And Vomiting Paroxetine HCl 20 mg 12/15/21 15:00 12/15/21 16:25 Paroxetine 20 Mg Tab PO 20 mg DAILY VISHAL Administration Sodium Chloride 10 ml 12/13/21 10:00 12/15/21 22:16 Sodium Chloride 0.9% 10 Ml Flush Syringe IV 10 ml BID VISHAL Administration Sodium Chloride 10 ml 12/12/21 22:50 Sodium Chloride 0.9% 10 Ml Flush Syringe IV PRN PRN LINE FLUSH
[2021-12-16 09:54] LABS: Calcium 8.8 mg/dL (8.4-10.2)
[2021-12-16] MEDS: amLODIPine 5 MG TAB PO SCH (11:09)
[2021-12-16] MEDS: ACETAMINOPHEN 325 MG TAB PO PRN (11:09)
[2021-12-16] MEDS: PARoxetine 20 MG TAB PO SCH (11:10)
[2021-12-16] MEDS: hydrALAZINE 100 MG TAB PO SCH ×2 (11:10→21:35)
[2021-12-16] MEDS: cefTRIAXone/NS 2 GM/100 ML 2 GM/100 ML BAG IV SCH (11:11)
--- NOTE | 2021-12-16 11:27 | Progress Note ---
Assessment and Plan Assessment and plan: 61-year-old female with known history of hypertension, diabetes mellitus, COPD and hyperlipidemia presents to the emergency room today with complaints of nausea and vomiting. Patient is a very poor historian and most of the history was obtained from the ER physician. Family was said to have called EMS because patient was feeling very weak. He was also said to have vomited upon arrival in the emergency room. Work-up in the emergency room/ lab reveals leukocytosis of 13.9. BUN of 30 and creatinine of 2.4. CT of the abdomen and pelvis shows mild patchy areas of groundglass opacity in both lower lungs suggesting multifocal pneumonia. Chest x-ray shows no acute findings. CT scan of the head shows no acute intracranial process. #Acute hypoxic respiratory failureresolved #aspiration pneumonia versus pneumonitis - etiology: Likely aspiration (possibly alcoholic consumption) - baseline oxygen requirements: Room air - supplemental oxygen: 3 L nasal cannula - Continue protocol: continue pulse oximetry, wean oxygen as tolerated, ordered incentive spirometry and educated patient on how to use it and its importance. - azithromycin 500 mg daily and Rocephin 1 g every 24 hours. Unremarkable coronavirus PCR. -No respiratory distress currently, continue to monitor #Acute metabolic encephalopathy, resolved Unremarkable CT head noncontrast Pending blood cultures, urinalysis +/- urine culture. Infectious disease consulted; appreciate recs. -Discontinued narcotics 12/14 #AKIimproving Creatinine 2.3 (baseline unknown) -Renal ultrasound shows chronic kidney disease -Creatinine progressively improving, 1.7 today, documented urine output is low but improving Renally dose meds and avoid nephrotoxic drugs. Nephrology consulted; appreciate recs Continue to monitor #Alcohol dependence -Blood alcohol level 0. -Counseled patient on the importance of ETOH cessation. Assess patient's current ETOH consumption. Assisted with trying to arrange resources for patient to adequately work towards ETOH cessation. Patient expresses understanding. Placed on CIIN protocol #Advanced care planning -Disease education conducted, care plan discussed, diagnoses discussed, prognosis discussed, and patient acknowledges understanding with care plan -Time: +30 min #Discharge planning - Patient is pending improvement in renal function - Case management has been made aware. - Discharge is tentatively tomorrow. Disposition Plan: Pending discharge home tomorrow Total Time Spent with Patient (Minutes): 45 minutes History Interval history: No acute events overnight. Hospitalist Physical - Constitutional Vitals: Temp Pulse Resp BP Pulse Ox 97.4 F L 85 18 152/84 100 12/16/21 04:17 12/16/21 04:17 12/16/21 04:17 12/16/21 04:17 12/16/21 04:17 General appearance: Present: no acute distress, well-nourished - EENT Eyes: Present: PERRL, EOM intact ENT: hearing intact, clear oral mucosa, dentition normal - Neck Neck: Present: supple, normal ROM - Respiratory Respiratory effort: normal Respiratory: bilateral: CTA - Cardiovascular Rhythm: regular Heart Sounds: Present: S1 & S2 - Extremities Extremities: no ischemia, pulses intact, pulses symmetrical, No edema, normal temperature, normal color, abnormal (Bilateral BKA's) Peripheral Pulses: within normal limits - Abdominal General gastrointestinal: soft, non-tender, non-distended, normal bowel sounds - Integumentary Integumentary: Present: clear, warm, dry - Psychiatric Psychiatric: appropriate mood/affect, intact judgment & insight, memory intact, cooperative - Neurologic Neurologic: CNII-XII intact, moves all extremities - Allied Health Allied health notes reviewed: nursing HEART Score - HEART Score Troponin: Troponin T < 0.010 ng/mL (0.00-0.029) 12/12/21 20:57 Results - Labs CBC & Chem 7: 12/15/21 05:44 12/16/21 08:22 Labs: Laboratory Last Values WBC 10.8 K/mm3 (4.5-11.0) 12/15/21 05:44 RBC 4.32 M/mm3 (3.65-5.03) 12/15/21 05:44 Hgb 12.2 gm/dl (11.8-15.2) 12/15/21 05:44 Hct 36.2 % (35.5-45.6) 12/15/21 05:44 MCV 84 fl (84-94) 12/15/21 05:44 MCH 28 pg (28-32) 12/15/21 05:44 MCHC 34 % (32-34) 12/15/21 05:44 RDW 15.6 % (13.2-15.2) H 12/15/21 05:44 Plt Count 219 K/mm3 (140-440) 12/15/21 05:44 Lymph % (Auto) 18.7 % (13.4-35.0) 12/15/21 05:44 Teller % (Auto) 7.9 % (0.0-7.3) H 12/15/21 05:44 Eos % (Auto) 0.8 % (0.0-4.3) 12/15/21 05:44 Baso % (Auto) 0.3 % (0.0-1.8) 12/15/21 05:44 Lymph # (Auto) 2.0 K/mm3 (1.2-5.4) 12/15/21 05:44 Teller # (Auto) 0.9 K/mm3 (0.0-0.8) H 12/15/21 05:44 Eos # (Auto) 0.1 K/mm3 (0.0-0.4) 12/15/21 05:44 Baso # (Auto) 0.0 K/mm3 (0.0-0.1) 12/15/21 05:44 Seg Neutrophils % 72.3 % (40.0-70.0) H 12/15/21 05:44 Seg Neutrophils # 7.8 K/mm3 (1.8-7.7) H 12/15/21 05:44 Sodium 140 mmol/L (137-145) 12/16/21 08:22 Potassium 3.9 mmol/L (3.6-5.0) 12/16/21 08:22 Chloride 103.7 mmol/L (98-107) 12/16/21 08:22 Carbon Dioxide 26 mmol/L (22-30) 12/16/21 08:22 Anion Gap 14 mmol/L 12/16/21 08:22 BUN 25 mg/dL (9-20) H 12/16/21 08:22 Creatinine 1.9 mg/dL (0.8-1.3) H 12/16/21 08:22 Estimated GFR 44 ml/min 12/16/21 08:22 BUN/Creatinine Ratio 13 % 12/16/21 08:22 Glucose 173 mg/dL (75-100) H 12/16/21 08:22 POC Glucose 140 mg/dL (70-105) H 12/16/21 07:48 Calcium 8.8 mg/dL (8.4-10.2) 12/16/21 08:22 Total Bilirubin 0.30 mg/dL (0.1-1.2) 12/15/21 05:44 AST 21 units/L (5-40) 12/15/21 05:44 ALT 17 units/L (7-56) 12/15/21 05:44 Alkaline Phosphatase 116 units/L (35-129) 12/15/21 05:44 Troponin T < 0.010 ng/mL (0.00-0.029) 12/12/21 20:57 Total Protein 5.4 g/dL (6.3-8.2) L 12/15/21 05:44 Albumin 3.5 g/dL (3.9-5) L 12/15/21 05:44 Albumin/Globulin Ratio 1.8 % 12/15/21 05:44 Lipase 12 units/L (13-60) L 12/12/21 20:57 Procalcitonin 0.18 ng/mL (<0.15) 12/13/21 10:26 Plasma/Serum Alcohol < 0.01 % (0-0.07) 12/12/21 20:57 Coronavirus (PCR) Negative (Negative) 12/13/21 09:30 Microbiology: Microbiology 12/13/21 00:26 Peripheral/Venous Blood Culture - Preliminary NO GROWTH AFTER 72 HOURS 12/13/21 00:26 Peripheral/Venous Blood Culture - Preliminary NO GROWTH AFTER 72 HOURS [place]/IV: Voiding Method Condom Catheter Active Medications - Current Medications Current Medications: Generic Name Dose Route Start Last Admin Trade Name Freq PRN Reason Stop Dose Admin Acetaminophen 650 mg 12/12/21 22:50 12/16/21 11:09 Acetaminophen 325 Mg Tab PO 650 mg Q4H PRN Administration Pain MILD(1-3)/Fever >100.5/VALENTINE Amlodipine Besylate 10 mg 12/15/21 15:00 12/16/21 11:09 Amlodipine 5 Mg Tab PO 10 mg DAILY VISHAL Administration Atorvastatin Calcium 40 mg 12/15/21 22:00 12/15/21 21:08 Atorvastatin 40 Mg Tab PO 40 mg QHS VISHAL Administration Chlordiazepoxide HCl 50 mg 12/13/21 07:31 12/13/21 22:43 Chlordiazepoxide 25 Mg Cap PO 50 mg Q1HR PRN Administration CIWA-Ar 8-15 Dextrose 50 ml 12/12/21 22:50 12/14/21 21:22 Dextrose 50% In Water (25gm) 50 Ml Syringe IV 50 ml Q30MIN PRN Administration Hypoglycemia Protocol Gabapentin 600 mg 12/15/21 22:00 12/15/21 21:08 Gabapentin 300 Mg Cap PO 600 mg QHS VISHAL Administration Heparin Sodium (Porcine) 5,000 unit 12/13/21 06:00 12/16/21 05:51 Heparin 5,000 Unit/1 Ml Vial SUB-Q 5,000 unit Q8HR VISHAL Administration Hydralazine HCl 100 mg 12/15/21 16:00 12/16/21 11:10 Hydralazine 100 Mg Tab PO 100 mg BID VISHAL Administration Insulin Human Lispro 0 unit 12/13/21 07:30 12/15/21 22:16 Insulin Lispro 100 Unit/Ml SUB-Q 6 unit ACHS VISHAL Administration Protocol Lorazepam 4 mg 12/13/21 07:31 Lorazepam 2 Mg/Ml Vial IV Q15MIN PRN CIWA-Ar >25 Lorazepam 4 mg 12/13/21 07:31 Lorazepam 2 Mg Tab PO Q1HR PRN CIWA-Ar 16-25 Ondansetron HCl 4 mg 12/12/21 22:50 Ondansetron 4 Mg/2 Ml Inj IV Q8H PRN Nausea And Vomiting Paroxetine HCl 20 mg 12/15/21 15:00 12/16/21 11:10 Paroxetine 20 Mg Tab PO 20 mg DAILY VISHAL Administration Sodium Chloride 10 ml 12/13/21 10:00 12/16/21 11:10 Sodium Chloride 0.9% 10 Ml Flush Syringe IV 10 ml BID VISHAL Administration Sodium Chloride 10 ml 12/12/21 22:50 Sodium Chloride 0.9% 10 Ml Flush Syringe IV PRN PRN LINE FLUSH Nutrition/Malnutrition Assess - Dietary Evaluation Nutrition/Malnutrition Findings: Nutrition Notes Start: 12/13/21 11:32 Freq: Status: Active Protocol: Document 12/13/21 11:32 TARYN (Rec: 12/13/21 12:08 TARYN [id number]) Nutrition Notes Need for Assessment generated from: MD Order,Education Initial or Follow up Assessment Current Diagnosis Acute Kidney Injury,COPD, Diabetes,Hypertension, Hyperlipidemia Other Pertinent Diagnosis AMS, Pneumonia, Leukocytosis, COVID-19 pui. Current Diet Cardiac/Consistent Carbohydrates -Renal- Diet ( since B 12/13). Labs/Tests 12/13: Cl 19, BUN 32, Crea 2.3 , Glu 191. Pertinent Medications 12/13: Nutritionally unremarkable. 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 No reports available on Pt's PO intake of meals at the time , will assess at F/U. Pt is on Room Air, O2 saturation @ 100%, according to Vital Signs notes. I will recommend Renal modification to Pt's current diet to support Pt's RODNEY condition. Pt complains of nausea and vomiting, according to Physical Assessment History notes. Pt is incontinent, according to Physical Assessment History notes. Pt presents with Bilateral-LE BKA, according to History & Physical notes. Pt still in critical condition , not a candidate for Nutrition Education at the time, will assess feasibility on F/U. Percent of energy/protein needs met: Prescribed Cardiac/Consistent Carbohydrates -Renal- Diet provides for energy/protein needs (1,977 Kcal/86 g) during LOS. Burn Absent Trauma Absent GI Symptoms Nausea,Vomiting Food Allergy No Skin Integrity/Comment Assessment WNL. 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 As Evidenced by Signs and Symptoms 12/13: Cl 19, BUN 32, Crea 2.3 , Glu 191. Is patient on ventilator? No Is Patient Ambulatory and/or Out of Bed No REE-([facility]-confined to bed) 1734.696 Kcal/Kg value to use for calculation 32 Approximate Energy Requirements Using 2 kcal/Kg Calculation Used for Recommendations Kcal/kg Additional Notes Protein: 0.8-1.2 g/Kg ABW; 51- 77 g/day. Fluids: 1 ml/Kcal, or as per MD. Nutrition Intervention Change Diet Order: Modify current diet to Cardiac /Consistent Carbohydrates- Renal- Diet, advance as tolerated. Goal #1 Help reach and maintain acceptable chemistry lab values during LOS. Goal #2 Adjust the dietary intervention to better serve Pt's energy/protein needs and clinical conditions during LOS . Follow-Up By: 12/20/21 Additional Comments Nutrition education will be provided at F/U, if feasible. Continue monitoring food tolerance, %PO intake of meals , and BM.
--- NOTE | 2021-12-16 12:39 | Electrocardiograph Report ---
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
[2021-12-16 21:05] VITALS: BP 158/83
[2021-12-16] MEDS: GABAPENTIN 300 MG CAP PO SCH (21:35)
== END 2021-12-16 22:51 | disposition home or self-care (01) | DRG 871 ==
LOC: ED 14:41 → 3A 22:26
PROVIDERS: ADMIT Internal Medicine Geriatric Medicine; ATTEND Student in an Organized Health Care Education/Training Program
DX: A41.9 Sepsis, unspecified organism (principal); G93.41 Metabolic encephalopathy; J96.01 Acute respiratory failure with hypoxia; J18.9 Pneumonia, unspecified organism; N17.9 Acute kidney failure, unspecified; J44.0 Chronic obstructive pulmonary disease with (acute) lower respiratory infection; K21.9 Gastro-esophageal reflux disease without esophagitis; I12.9 Hypertensive chronic kidney disease with stage 1 through stage 4 chronic kidney disease, or unspecified chronic kidney disease; E11.22 Type 2 diabetes mellitus with diabetic chronic kidney disease; E78.5 Hyperlipidemia, unspecified; N18.30 Chronic kidney disease, stage 3 unspecified; F10.20 Alcohol dependence, uncomplicated; D72.829 Elevated white blood cell count, unspecified; E11.40 Type 2 diabetes mellitus with diabetic neuropathy, unspecified; E86.0 Dehydration; Y90.9 Presence of alcohol in blood, level not specified; Z20.822 Contact with and (suspected) exposure to COVID-19; Z79.4 Long term (current) use of insulin; Z89.512 Acquired absence of left leg below knee; Z89.511 Acquired absence of right leg below knee
CPT/HCPCS: 36415; 70450; 71045; 74176; 76770; 80048; 80053; 80320; 82962; 83690; 84145; 84484; 85025; 87040; 93005; 96365; 96375; 99285; G0378; J3490; Q9967; G0480; J0456; J0696; J1644; J1815; J2270; J2405; J7030; J7120; U0003